=== PATIENT | male | born 1935 | race Caucasian/White ===

== ENCOUNTER 2023-11-08 11:35 | Emergency (ER) | payer OTHER ==
[~2023-11-08] VITALS: Ht 172.7 cm; Wt 76.3 kg
[2023-11-08] MEDS ORDERED: SODIUM CHLORIDE 0.9% 1,000 ML IV ONE (11:45)
[2023-11-08] MEDS ORDERED: FLEET MINERAL OIL ENEMA 133 ML PR ONE (11:45)
[2023-11-08 12:02] LABS: Basophils # (auto) 0 10 ^3/uL (0-0.2); Eosinophils # (auto) 0.1 10 ^3/uL (0-0.8); Hemoglobin 12.9 g/dL (13.5-17.5); Lymphocytes # (auto) 0.3 10 ^3/uL (0.4-5.4); Lymphocytes % (auto) 6.4 % (10.0-50.0); Monocytes # (auto) 0.4 10 ^3/uL (0-1.3); Red Cell Distribution Width 14.2 % (11.8-14.3); White Blood Cell 4.4 10^3/uL (4.4-10.8)
[2023-11-08 12:05] LABS: Basophils % (auto) 0.3 % (0.0-2.0); Eosinophils % (auto) 1.3 % (0.0-7.0); Hematocrit 37.6 % (41.0-53.0); Mean Corpuscular Hemoglobin 34.8 pg (28.0-32.0); Mean Corpuscular Hgb Conc. 34.3 g/dL (32.0-36.0); Mean Corpuscular Volume 101.6 fL (80.0-100.0); Monocytes % (auto) 8.5 % (0.0-12.0); Neutrophils # (auto) 3.7 10 ^3/uL (1.6-8.6); Neutrophils % (auto) 83.5 % (37.0-80.0); Red Blood Cells 3.71 10^6/uL (4.5-5.90)
[2023-11-08 12:19] LABS: Alanine Aminotransferase 26 U/L (7-40); Albumin 4.5 g/dL (3.2-4.8); Alkaline Phosphatase 51 U/L (46-116); Anion Gap 5 (5-15); Aspartate Aminotransferase 34 U/L (13-40); BUN/Creatinine Ratio 14.3 (10.0-20.0); Bilirubin, Total 0.8 mg/dL (0.2-1.0); Blood Urea Nitrogen 18 mg/dL (9-23); Calcium 10.3 mg/dL (8.7-10.4); Carbon Dioxide 25 mmol/L (20-30); Chloride 101 mmol/L (98-107); Glucose 111 mg/dL (74-106); Potassium 4.2 mmol/L (3.5-5.1); Sodium 131 mmol/L (136-145); Total Protein 8.1 g/dL (5.7-8.2)
[2023-11-08] MEDS ORDERED: LACT10SO3 PO (15:43)
[2023-11-08 18:25] VITALS: PULSE 80; RESP 18; TEMP 98.1; O2SAT 100
[2023-11-08 18:39] VITALS: BP 183/136; PULSE 100; RESP 18; O2SAT 100
== END 2023-11-08 18:40 | disposition admitted as inpatient to this hospital (09) ==
LOC: ER 11:35 → EDBD 11:35 → ER 18:40
DX: K59.00 Constipation, unspecified (principal); I10 Essential (primary) hypertension; M19.90 Unspecified osteoarthritis, unspecified site; Z98.890 Other specified postprocedural states; Z79.899 Other long term (current) drug therapy
CPT/HCPCS: 36415; 74176; 80053; 85025

== ENCOUNTER 2024-08-16 17:44 | Inpatient (IN) | payer OTHER ==
[~2024-08-16] VITALS: Ht 172.7 cm; Wt 67.5 kg
[~2024-08-16 17:44] MED LIST: LACT10SO3 PO
[2024-08-16 18:30] LABS: Basophils # (auto) 0 10 ^3/uL (0-0.2); Basophils % (auto) 0.1 % (0.0-2.0); Eosinophils # (auto) 0 10 ^3/uL (0-0.8); Hemoglobin 11.2 g/dL (13.5-17.5); Lymphocytes # (auto) 0.5 10 ^3/uL (0.4-5.4)
[2024-08-16 18:31] LABS: Eosinophils % (auto) 0.2 % (0.0-7.0); Hematocrit 31.2 % (41.0-53.0); Lymphocytes % (auto) 6.3 % (10.0-50.0); Mean Corpuscular Hemoglobin 35.9 pg (28.0-32.0); Mean Corpuscular Hgb Conc. 35.9 g/dL (32.0-36.0); Mean Corpuscular Volume 100.1 fL (80.0-100.0); Monocytes # (auto) 0.8 10 ^3/uL (0-1.3); Monocytes % (auto) 9.9 % (0.0-12.0); Neutrophils # (auto) 6.4 10 ^3/uL (1.6-8.6); Neutrophils % (auto) 83.5 % (37.0-80.0); Platelet Count (auto) 208 10^3/uL (140-450); Red Blood Cells 3.11 10^6/uL (4.5-5.90); Red Cell Distribution Width 15.3 % (11.8-14.3); White Blood Cell 7.7 10^3/uL (4.4-10.8)
[2024-08-16 19:02] LABS: INR 0.96 (0.9-1.15); Partial Thromboplastin Time 21.7 SEC (24.5-34.5); Prothrombin Time 10.2 sec (9.3-11.8)
--- NOTE | 2024-08-16 19:05 | DVH ---
CHEST RADIOGRAPH Indication:GEN WEAKNESS Technique: Single frontal view of the chest was obtained Comparison: None FINDINGS: Lines and Tubes: Sided cardiac device with intact leads Lungs: No focal consolidation. Pleura: No effusion. No pneumothorax. Cardiomediastinal contours: Mild cardiomegaly. Bones: No acute osseous abnormality. IMPRESSION: No acute cardiopulmonary disease.
[2024-08-16 19:06] LABS: Alanine Aminotransferase 17 U/L (7-40); Albumin 4.2 g/dL (3.2-4.8); Alkaline Phosphatase 84 U/L (46-116); Anion Gap 10 (5-15); Aspartate Aminotransferase 36 U/L (13-40); BUN/Creatinine Ratio 16.5 (10.0-20.0); Blood Urea Nitrogen 33 mg/dL (9-23); Carbon Dioxide 27 mmol/L (20-31); Chloride 93 mmol/L (98-107); Glucose 102 mg/dL (74-106); Magnesium 2.5 mg/dL (1.6-2.6); Potassium 2.6 mmol/L (3.5-5.1); Sodium 130 mmol/L (136-145)
[2024-08-16 19:07] LABS: Bilirubin, Total 0.8 mg/dL (0.2-1.0); Total Protein 8.7 g/dL (5.7-8.2)
[2024-08-16 19:16] LABS: Calcium 17.2 mg/dL (8.7-10.4)
--- NOTE | 2024-08-16 19:24 | ED.PDOC ---
History of Present Illness HPI Comments 88 y/o M, with a Hx of arthritis, CABG, HTN, Pacemaker, and thyroid disease, is BIBA for c/o generalized weakness, fatigue, poor appetite, and constipation for the past 2 months. Patient is a poor historian and reports on gradual onset of persisting symptoms for the past 2 months. Patient suspects on having a "blockage in [his] rectum" as the underlying cause of his symptoms. Patient states on losing approximately 11-13kg in weight since onset of symptoms. Patient states also on having a pacemaker placed in April 18 2024 in addition to consulting his PCP, currently, regarding for cholecystectomy s/p imaging studies showing "sludge" around his gallbladder. Patient endorses on no further relevant or pertinent past medical, surgical, or family Hx in addition to recent stress, injuries, sick contact, travel, spoiled food intake, or substance use/exposure. Patient denies having any headache, dizziness, lightheadedness, weakness, fever, chills, or other associated symptoms or modifiers at this time. Chief Complaint: General Weakness Time Seen by MD: 18:45 Primary Care Provider: UNKNOWN Reviewed Notes: Nurses Notes, Stockfeed Miller Notes, Medications, Allergies Allergies: Coded Allergies: NO KNOWN ALLERGIES (Unverified , 11/08/23) Home Meds Active Scripts Lactulose (Lactulose) 10 Gm/15 Ml Kati, 10 GM PO BID for 7 Days, #100 ML Prov:EKATERINA CLAIRE MD 11/08/23 Information Source: Patient, Emergency Med Personnel Mode of Arrival: EMS Severity: Moderate Timing: Months Duration: Since onset Prehospital treatment: 12 Lead EKG, Salt Manager Past Medical History PAST MEDICAL HISTORY: Arthritis, HTN, Thyroid Surgical History: CABG, Pacemaker Family History Family History: Reviewed,noncontributory to illness Social History Smoker: Non-Smoker Alcohol: Denies ETOH Use Drugs: Denies Drug Use Lives In: Home Constitutional: reports: fatigue; denies: chills, diaphoresis, fever, malaise, sweats, weakness, others EENTM: denies: blurred vision, double vision, ear bleeding, ear discharge, ear drainage, ear pain, ear ringing, eye pain, eye redness, hearing loss, mouth pain, mouth swelling, nasal discharge, nose bleeding, nose congestion, nose pain, photophobia, tearing, throat pain, throat swelling, voice changes, others Respiratory: denies: cough, hemoptysis, orthopnea, SOB at rest, shortness of breath, SOB with excertion, stridor, wheezing, others Cardiovascular: denies: chest pain, dizzy spells, diaphoresis, Dyspnea on exertion, edema, irregular heart beat, left arm pain, lightheadedness, palpitations, PND, syncope, others Gastrointestinal: reports: constipated, poor appetite; denies: abdomen dis tended, abdominal pain, blood streaked bowels, diarrhea, dysphagia, difficulty swallowing, hematemesis, melena, nausea, poor fluid intake, rectal bleeding, rectal pain, vomiting, others Genitourinary: denies: burning, dysuria, flank pain, frequency, hematuria, incontinence, penile discharge, penile sore, pain, testicle pain, testicle swelling, urgency, others Neurological: reports: weakness; denies: dizziness, fainting, headache, left sided numbness, left sided weakness, numbness, paresthesia, pre-existing deficit, right sided numbness, right sided weakness, seizure, speech problems, tingling, tremors, others Musculoskeletal: denies: back pain, gout, joint pain, joint swelling, muscle pain, muscle stiffness, neck pain, others Integumetry: denies: bruises, change in color, change in hair/nails, dryness, laceration, lesions, lumps, rash, wounds, others Allergic/Immunocompromised: denies: Difficulty Healing, Frequent Infections, Hives, Itching, others Hematologic/Lymphatic: denies: anemia, blood clots, easy bleeding, easy bruising, swollen glands, others Endocrine: denies: excessive hunger, excessive sweating, excessive thirst, excessive urination, flushing, intolerance to cold, intolerance to heat, unexplained weight gain, unexplained weight loss, others Psychiatric: denies: anxiety, bipolar disorder, depression, hopeless, panic disorder, schizophrenia, sleepless, suicidal, others All Other Systems: Reviewed and Negative Physical Exam General Appearance: Mild Distress, Normal, Other (nice and pleasant ) HEENT: Normal ENT Inspection, Pharynx Normal, TMs Normal Neck: Full Range of Motion, Non-Tender, Normal, Normal Inspection Respiratory: Chest Non-Tender, Lungs Clear, No Accessory Muscle Use, No Respira tory Distress, Normal Breath Sounds Cardiovascular: No Edema, No JVD, No Murmur, No Gallop, Normal Peripheral Pulses, Regular Rate/Rhythm Breast Exam: Deferred Gastrointestinal: No Organomegaly, Non Tender, No Pulsatile Mass, Normal Bowel Sounds, Soft Genitalia: Deferred Pelvic: Deferred Rectal: Deferred Extremities: No calf tenderness, Normal capillary refill, Normal inspection, Normal range of motion, Non-tender, No pedal edema Musculoskeletal : Apperance: Normal Neurologic: Alert, floral specialist II-XII nml as Tested, Motor Weakness, Normal Affect, Normal Mood, No Sensory Deficits, Other (no focal neurological deficts) Cerebellar Function: Normal Reflexes: Normal Skin: Dry, Normal Color, Warm Lymphatic: No Adenopathy Was a procedure done? Was a procedure done?: No EKG EKG : Pulse Rate (adult): 74 Cardiac Rhythm: Paced ST: Old, Inf Differential Dx Considerations may include: electrolyte imbalance, dehydration, malnutrition, viral syndrome, constipation, SBO X-Ray, Labs, Meds, VS Vital Signs Date Time Temp Pulse Resp B/P (MAP) Pulse Ox O2 Delivery O2 Flow Rate FiO2 08/16/24 19:55 74 08/16/24 19:48 78 12 162/85 (110) 98 08/16/24 19:27 74 08/16/24 17:48 98.7 94 16 174/86 (115) 98 Lab Test 08/16/24 21:22 08/16/24 21:04 08/16/24 20:44 08/16/24 18:58 Range/Units Troponin I High Sensitivity Pending 1082 *H 1254 *H </=54 ng/L Urine Color Pending Urine Clarity Pending Urine pH Pending Urine Specific [place] Pending Urine Protein Pending Urine Ketones Pending Urine Blood Pending Urine Nitrite Pending Urine Bilirubin Pending Urine Urobilinogen Pending Urine Leukocyte Esterase Pending Urine RBC Pending Urine WBC Pending Urine Squamous Epithelial Cells Pending Urine Bacteria Pending Urine Glucose Pending Test 08/16/24 18:08 Range/Units White Blood Count 7.7 4.4-10.8 10^3/uL Red Blood Count 3.11 L 4.5-5.90 10^6/uL Hemoglobin 11.2 L 13.5-17.5 g/dL Hematocrit 31.2 L 41.0-53.0 % Mean Corpuscular Volume 100.1 H 80.0-100.0 fL Mean Corpuscular Hemoglobin 35.9 H 28.0-32.0 pg Mean Corpuscular Hemoglobin Concent 35.9 32.0-36.0 g/dL Red Cell Distribution Width 15.3 H 11.8-14.3 % Platelet Count 208 140-450 10^3/uL Mean Platelet Volume 8.5 6.9-10.8 fL Neutrophils (%) (Auto) 83.5 H 37.0-80.0 % Lymphocytes (%) (Auto) 6.3 L 10.0-50.0 % Monocytes (%) (Auto) 9.9 0.0-12.0 % Eosinophils (%) (Auto) 0.2 0.0-7.0 % Basophils (%) (Auto) 0.1 0.0-2.0 % Neutrophils # (Auto) 6.4 1.6-8.6 10 ^3/uL Lymphocytes # (Auto) 0.5 0.4-5.4 10 ^3/uL Monocytes # (Auto) 0.8 0-1.3 10 ^3/uL Eosinophils # (Auto) 0 0-0.8 10 ^3/uL Basophils # (Auto) 0 0-0.2 10 ^3/uL Nucleated Red Blood Cells 0.0 % Prothrombin Time 10.2 9.3-11.8 sec Prothrombin Time INR 0.96 0.9-1.15 Activated Partial Thromboplast Time 21.7 L 24.5-34.5 SEC Sodium Level 130 L 136-145 mmol/L Potassium Level 2.6 L 3.5-5.1 mmol/L Chloride Level 93 L 98-107 mmol/L Carbon Dioxide Level 27 20-31 mmol/L Anion Gap 10 5-15 Blood Urea Nitrogen 33 H 9-23 mg/dL Creatinine 2.00 H 0.700-1.30 mg/dL Glomerular Filtration Rate Calc 32 >90 mL/min BUN/Creatinine Ratio 16.5 10.0-20.0 Serum Glucose 102 74-106 mg/dL Calcium Level 17.2 *H 8.7-10.4 mg/dL Magnesium Level 2.5 1.6-2.6 mg/dL Total Bilirubin 0.8 0.2-1.0 mg/dL Aspartate Amino Transferase (AST) 36 13-40 U/L Alanine Aminotransferase (ALT) 17 7-40 U/L Alkaline Phosphatase 84 46-116 U/L Troponin I High Sensitivity 1156 *H </=54 ng/L B-Type Natriuretic Peptide 441.10 0-100 pg/mL Total Protein 8.7 H 5.7-8.2 g/dL Albumin 4.2 3.2-4.8 g/dL Current Medications Medications (Trade) Dose Ordered Sig/Shai Route Start Time Stop Time Status Last Admin Heparin Sodium (Porcine) 4,000 units ONCE ONCE IV 08/16/24 20:00 08/16/24 20:01 DC 08/16/24 20:00 Heparin Sodium/ Dextrose 250 ml @ 9 mls/hr Q24H IV 08/16/24 20:00 08/16/24 20:00 First troponin is 11 156. EKG shows atrial sensed ventricular paced, pacemaker at a rate of 74 beats per minute with old inferior wall MS. Dr. Gonzalez was consulted he recommended aspirin and heparin for anticoagulants, and was see the patient 1st thing in the morning. Sodium 130 potassium 2.6. BUN 33 creatinine two. BNP is 441. The patient was admitted by Dr. Rendon for further evaluation and care. Time of 1ST Reevaluation: 19:15 Reevaluation 1ST: Unchanged Patient Education/Counseling: Diagnosis, Treatment Family Education/Counseling: No Family Present Departure 1 Departure Time of Disposition: 22:04 Impression: Primary Impression: Non-STEMI (non-ST elevated myocardial infarction) Additional Impressions: Electrolyte imbalance Hypokalemia Acute kidney injury Hypercalcemia Disposition: ADMITTED INPATIENT Admit to: Tele Condition: Critical Critical Care Note Critical Care Time?: Yes (55 min-critical care time only) Stability Stability form required: No Heart Score Heart Score: Heart Score Response (Comments) Value History Highly Suspicious 2 EKG N/A 0 Age >65 2 Risk Factors >3 or Hx ASHD 2 Troponin >3 x's Normal limit 2 Total 8 I personally scribed for SHAZIA CORDERO MD ([email or web address]) on 08/16/24 at 19:24. Electronically submitted by Iggy Sullivan [email or web address]). HSAZIA CORDERO MD Aug 16, 2024 19:24
[2024-08-16] MEDS: HEPARIN DRIP/D5W 100UNITS/ML 250 ML IV SCH (20:00)
[2024-08-16] MEDS: HEPARIN SODIUM (PORCINE) 5000 UNITS/ML 1ML VIAL IV ONE (20:00)
[2024-08-16 21:28] LABS: Urine Bacteria None Seen /hpf (None Seen)
[2024-08-16] MEDS: POTASSIUM CHL 20MEQ/100ML 100 ML IV SCH (21:45)
[2024-08-16] MEDS: POTASSIUM EFFERVESENT TAB 25 MEQ PO ONE (21:45)
[2024-08-16] MEDS: SODIUM CHLORIDE 0.9% 1,000 ML IV ONE ×2 (21:45→22:45)
[2024-08-16 21:53] LABS: Urine Blood Negative /uL (Negative); Urine Clarity Clear (Clear); Urine Color Yellow (Yellow); Urine Mucus FEW (None Seen); Urine Protein, UAD TRACE (Negative); Urine Specific Gravity 1.008 (1.001-1.035); Urine Urobilinogen Normal (Negative); Urine WBC 1 /hpf (0 - 3); Urine pH 6.5 (5.0-9.0)
[2024-08-16] MEDS ORDERED: MORPHINE SULFATE INJ 2 MG/ml SYRG IV PRN (22:00)
[2024-08-16] MEDS ORDERED: NITROGLYCERIN 0.4 MG SL TAB SL PRN (22:00)
[2024-08-16] MEDS: LACTULOSE 20Gm/30ML SOLN PO ONE (22:00)
[2024-08-17] VITALS (10 sets, daily range): BP systolic 138–180; BP diastolic 69–100; PULSE 60–89; RESP 16–19; TEMP 97.3–98.1; O2SAT 92–98
[2024-08-17] MEDS ORDERED: HYDR12.59 PO (01:52)
[2024-08-17] MEDS ORDERED: LEVO100T8 PO (01:52)
[2024-08-17] MEDS ORDERED: AMLO1TAB22 PO (01:52)
[2024-08-17] MEDS: amLODIPine BESYLATE 5 MG TAB PO ONE (02:58)
[2024-08-17 03:19] LABS: INR 1.03 (0.9-1.15); Prothrombin Time 10.9 sec (9.3-11.8)
[2024-08-17 03:22] LABS: Partial Thromboplastin Time 91.8 SEC (24.5-34.5)
[2024-08-17] MEDS: HEPARIN DRIP/D5W 100UNITS/ML 250 ML IV SCH ×2 (04:36→10:30)
[2024-08-17] MEDS: cloNIDine HCL 0.1 MG TAB PO ONE (05:17)
[2024-08-17 06:53] LABS: Basophils # (auto) 0 10 ^3/uL (0-0.2); Eosinophils # (auto) 0 10 ^3/uL (0-0.8); Eosinophils % (auto) 0.2 % (0.0-7.0); Hemoglobin 9.7 g/dL (13.5-17.5); Lymphocytes # (auto) 0.3 10 ^3/uL (0.4-5.4); Neutrophils # (auto) 4.8 10 ^3/uL (1.6-8.6); White Blood Cell 5.7 10^3/uL (4.4-10.8)
[2024-08-17 06:56] LABS: Basophils % (auto) 0.1 % (0.0-2.0); Hematocrit 27.9 % (41.0-53.0); Lymphocytes % (auto) 5.2 % (10.0-50.0); Mean Corpuscular Hemoglobin 35.1 pg (28.0-32.0); Mean Corpuscular Hgb Conc. 34.9 g/dL (32.0-36.0); Mean Corpuscular Volume 100.5 fL (80.0-100.0); Monocytes # (auto) 0.5 10 ^3/uL (0-1.3); Monocytes % (auto) 9.6 % (0.0-12.0); Neutrophils % (auto) 84.9 % (37.0-80.0); Platelet Count (auto) 190 10^3/uL (140-450); Red Blood Cells 2.77 10^6/uL (4.5-5.90); Red Cell Distribution Width 15.3 % (11.8-14.3)
[2024-08-17 07:24] LABS: Alanine Aminotransferase 15 U/L (7-40); Alkaline Phosphatase 67 U/L (46-116); Anion Gap 7 (5-15); BUN/Creatinine Ratio 19.2 (10.0-20.0); Blood Urea Nitrogen 32 mg/dL (9-23); Carbon Dioxide 28 mmol/L (20-31); Chloride 100 mmol/L (98-107); Glucose 95 mg/dL (74-106); Potassium 3.1 mmol/L (3.5-5.1)
[2024-08-17 07:25] LABS: Albumin 3.3 g/dL (3.2-4.8); Aspartate Aminotransferase 29 U/L (13-40)
[2024-08-17 07:26] LABS: Bilirubin, Total 0.6 mg/dL (0.2-1.0)
[2024-08-17 07:39] LABS: Sodium 135 mmol/L (136-145)
[2024-08-17 07:41] LABS: Calcium 14.2 mg/dL (8.7-10.4)
--- NOTE | 2024-08-17 08:48 | DVHHP2 ---
Admitting Diagnosis: NSTEMI, ROYAL History of Present Illness HPI 88 y.o. male with CAD, s/p CABG, CHF, pacemaker (04/2024) was brought to the ED c/o generalized weakness, loss of appetite, weight loss for the past 2 months. Patient also c/o constipation, thinking that it was the cause of his other symptoms. Patient denied CP, SOB, palpitations. Home Meds Active Scripts Lactulose (Lactulose) 10 Gm/15 Ml Kati, 10 GM PO BID for 7 Days, #100 ML Prov:EKATERINA CLAIRE MD 11/08/23 Reported Medications Levothyroxine Sodium (Levothyroxine Sodium) 100 Mcg Tab, 1 TAB PO DAILY 08/17/24 Hydrochlorothiazide (Hydrochlorothiazide) 12.5 Mg Cap, 12.5 MG PO DAILY for 30 Days, MG 08/17/24 Amlodipine Besylate (Amlodipine Besylate) 5 Mg Tab, 20 MG PO DAILY for 30 Days, MG 08/17/24 Past Medical History Cardiac: CAD, CHF, HTN, [place], Hyperlipidemia Endocrine: Hypothyroidism Review of Systems Constitutional: Malaise, Weakness, Weight loss H&P Exam Vital Signs Vital Signs Date Time Temp Pulse Resp B/P (MAP) Pulse Ox O2 Delivery O2 Flow Rate FiO2 08/17/24 05:17 170/87 08/17/24 05:00 97.9 88 18 93 97.9 08/17/24 03:31 Room Air* 0 21 General Appeara: Mild distress Head Exam: Normal inspection Neck Exam: Normal inspection Eye Exam: bilateral eye PERRL, bilateral eye EOMI Pulmonary/Respiratory: Crackles Cardiovascular/Chest: Tachycardia Abdominal Pain Onset Location: Generalized abdomen Neuro/Mental St: Alert, Oriented Labs/Xrays Labs Test 08/17/24 05:48 08/17/24 01:54 08/16/24 21:22 08/16/24 21:04 Range/Units White Blood Count 5.7 # 4.4-10.8 10^3/uL Red Blood Count 2.77 L 4.5-5.90 10^6/uL Hemoglobin 9.7 L 13.5-17.5 g/dL Hematocrit 27.9 #L 41.0-53.0 % Mean Corpuscular Volume 100.5 H 80.0-100.0 fL Mean Corpuscular Hemoglobin 35.1 H 28.0-32.0 pg Mean Corpuscular Hemoglobin Concent 34.9 32.0-36.0 g/dL Red Cell Distribution Width 15.3 H 11.8-14.3 % Platelet Count 190 140-450 10^3/uL Mean Platelet Volume 8.3 6.9-10.8 fL Neutrophils (%) (Auto) 84.9 H 37.0-80.0 % Lymphocytes (%) (Auto) 5.2 L 10.0-50.0 % Monocytes (%) (Auto) 9.6 0.0-12.0 % Eosinophils (%) (Auto) 0.2 0.0-7.0 % Basophils (%) (Auto) 0.1 0.0-2.0 % Neutrophils # (Auto) 4.8 1.6-8.6 10 ^3/uL Lymphocytes # (Auto) 0.3 L 0.4-5.4 10 ^3/uL Monocytes # (Auto) 0.5 0-1.3 10 ^3/uL Eosinophils # (Auto) 0 0-0.8 10 ^3/uL Basophils # (Auto) 0 0-0.2 10 ^3/uL Nucleated Red Blood Cells 0.0 % Sodium Level 135 #L 136-145 mmol/L Potassium Level 3.1 L 3.5-5.1 mmol/L Chloride Level 100 98-107 mmol/L Carbon Dioxide Level 28 20-31 mmol/L Anion Gap 7 5-15 Blood Urea Nitrogen 32 H 9-23 mg/dL Creatinine 1.67 H 0.700-1.30 mg/dL Glomerular Filtration Rate Calc 39 >90 mL/min BUN/Creatinine Ratio 19.2 10.0-20.0 Serum Glucose 95 74-106 mg/dL Calcium Level 14.2 *H 8.7-10.4 mg/dL Total Bilirubin 0.6 0.2-1.0 mg/dL Aspartate Amino Transferase (AST) 29 13-40 U/L Alanine Aminotransferase (ALT) 15 7-40 U/L Alkaline Phosphatase 67 46-116 U/L Total Protein 7.0 5.7-8.2 g/dL Albumin 3.3 3.2-4.8 g/dL Prothrombin Time 10.9 9.3-11.8 sec Prothrombin Time INR 1.03 0.9-1.15 Activated Partial Thromboplast Time 91.8 *H 24.5-34.5 SEC Troponin I High Sensitivity 997 *H </=54 ng/L Urine Color Yellow Yellow Urine Clarity Clear Clear Urine pH 6.5 5.0-9.0 Urine Specific [place] 1.008 1.001-1.035 Urine Protein Trace H Negative Urine Ketones Negative Negative Urine Blood Negative Negative /uL Urine Nitrite Negative Negative Urine Bilirubin Negative Negative Urine Urobilinogen Normal Negative mg/dL Urine Leukocyte Esterase Negative Negative /uL Urine RBC 1 0 - 3 /hpf Urine WBC 1 0 - 3 /hpf Urine Squamous Epithelial Cells Few <5 /hpf Urine Bacteria None seen None Seen /hpf Urine Mucus Few None Seen Urine Glucose Normal Normal mg/dL Test 08/16/24 18:08 Range/Units Magnesium Level 2.5 1.6-2.6 mg/dL B-Type Natriuretic Peptide 441.10 0-100 pg/mL Assessment/Plan Problem List: (1) Non-STEMI (non-ST elevated myocardial infarction) (2) Acute kidney injury (3) Hypercalcemia (4) Constipation Plan Heparin drip, ECHO, Cardiology consult, nephrology consult, IVF Plan discussed with: Patient NIECY LOWE MD Aug 17, 2024 08:48
[2024-08-17] MEDS ORDERED: POLYETHYLENE GLYCOL 17 GM PWDR PO PRN (10:00)
[2024-08-17 10:10] LABS: INR 1.03 (0.9-1.15); Partial Thromboplastin Time 41.2 SEC (24.5-34.5); Prothrombin Time 10.9 sec (9.3-11.8)
--- NOTE | 2024-08-17 10:56 | DVH ---
Exam: CT CHST AB PEL WO CON-NO IV/ORAL History: R/O MALIGNANCY DT HIGH CALCIUM Comparison Study: None available at time of dictation. Technique: Multidetector spiral CT of the chest, abdomen and pelvis was performed from lower neck to pubic symphysis Axial, coronal and sagittal multiplanar reformats were performed by the technologist on a separate workstation. Radiation Dose : 1. Chest/Abdomen/Pelvis: CTDIvol 10.69 mGy, DLP 748.88 mGy*cm. Findings: Lower neck: Normal thyroid. Lungs: No focal consolidation, pleural effusion or pneumothorax. Atelactasis and scarring in the lung bases. Heart/Vascular Structures: Normal heart size. No pericardial effusion. Ascending aortic aneurysm immanuel uring up to 45 mm. Lymph Nodes: No adenopathy Pleura: No pleural effusion or significant pneumothorax. Liver: The liver is normal in size. No focal lesions. Normal hepatic vascular enhancement. Gallbladder and Biliary Tree: Gallbladder is dilated. Spleen: Unremarkable Pancreas: There is question of a mass in the tail of the pancreas. Adrenal Glands: Unremarkable Kidneys: Kidneys demonstrate normal symmetric enhancement without focal lesions, calculi or hydroneph rosis. Bladder: Unremarkable Bowel: The stomach is grossly normal in appearance. Small bowel and colon are normal in caliber and d istribution. There is wall thickening of the rectum with perirectal stranding. The appendix is not vi sualized; however, no secondary findings of acute appendicitis identified. Ascites: Trace perisplenic ascites. Lymphadenopathy: No mesenteric, retroperitoneal or periportal lymphadenopathy. Abdominal Wall and Mesentery: Unremarkable. Vasculature: The visualized abdominal aorta is normal in size and caliber. There is calcified atheros clerotic plaque involving the aorta and its branches. Abdominal and pelvic vessels demonstrate normal enhancement. Pelvic Organs: Prostate is enlarged. Musculoskeletal: Compression deformity of multiple thoracic and lumbar vertebral bodies. IMPRESSION: 1. Limited noncontrast exam. 2. Ascending aortic aneurysm measuring up to 45 mm. 3. Gallbladder hydrops. 4. Questionable mass in the tail of the pancreas. Recommend further evaluation with CT or MRI of the abdomen with contrast. 5. Wall thickening of the rectum with perirectal stranding. Finding could be infectious / inflammato ry or neoplastic. Recommend clinical correlation. Consider further evaluation with colonoscopy. 6. Compression deformity of multiple thoracic and lumbar vertebral bodies. Consider further evaluatio n with MRI of the thoracic and lumbar spine. HS:Y
--- NOTE | 2024-08-17 11:25 | DVHINCON2 ---
Date of service: Aug 17, [address] Rendon Reason for Consultation Acute kidney injury History of Present Illness Patient is a 88 male with past medical history significant for Arthritis, HTN, coronary artery disease and hypothyroidism is admitted for generalized weakness poor appetite and constipation for two months. On admission patient found to have elevated BUN creatinine nephrology is consulted for acute kidney injury Past Medical History PAST MEDICAL HISTORY: Arthritis, HTN, hypothyroidism, coronary artery disease Past Surgical History Patient denies Allergies: Coded Allergies: NO KNOWN ALLERGIES (Unverified , 11/08/23) Home Meds Active Scripts Lactulose (Lactulose) 10 Gm/15 Ml Kati, 10 GM PO BID for 7 Days, #100 ML Prov:EKATERINA CLAIRE MD 11/08/23 Reported Medications Levothyroxine Sodium (Levothyroxine Sodium) 100 Mcg Tab, 1 TAB PO DAILY 08/17/24 Hydrochlorothiazide (Hydrochlorothiazide) 12.5 Mg Cap, 12.5 MG PO DAILY for 30 Days, MG 08/17/24 Amlodipine Besylate (Amlodipine Besylate) 5 Mg Tab, 20 MG PO DAILY for 30 Days, MG 08/17/24 Current Medications Current Medications Medications (Trade) Dose Ordered Sig/Shai Route PRN Reason Start Time Stop Time Status Last Admin Heparin Sodium/ Dextrose 250 ml @ 9 mls/hr Q24H IV 08/16/24 20:00 08/17/24 03:53 DC 08/16/24 20:00 Potassium Chloride 100 ml @ 50 mls/hr Q2H IV 08/16/24 21:45 08/17/24 01:44 DC 08/17/24 02:07 Nitroglycerin (Ntrostat Sublingual) 0.4 mg Q5MINP PRN SL FOR CHEST PAIN 08/16/24 22:00 Morphine Sulfate 2 mg Q30M PRN IV FOR CHEST PAIN 08/16/24 22:00 Amlodipine Besylate (Norvasc Tablet) 5 mg DAILY PO 08/18/24 10:00 Heparin Sodium/ Dextrose 250 ml @ 6 mls/hr Q24H IV 08/17/24 04:30 08/17/24 10:19 DC 08/17/24 04:36 Lactulose 30 ml DAILY PO 08/17/24 10:00 08/17/24 12:24 Polyethylene Glycol (Miralax 17GM Powder) 17 gm DAILYPRN PRN PO FOR CONSTIPATION 08/17/24 10:00 Heparin Sodium/ Dextrose 250 ml @ 8 mls/hr Q24H IV 08/17/24 10:30 08/17/24 10:30 Potassium Bicarbonate (Klor-Con/Ef) 50 meq DAILY PO 08/17/24 11:15 08/17/24 12:23 Ceftriaxone Sodium 50 ml @ 100 mls/hr DAILY@09 IV 08/18/24 09:00 UNV Metronidazole 100 ml @ 100 mls/hr Q8HR IV 08/17/24 14:00 UNV Review of Systems All 12 item review of systems reviewed with the patient nonsignificant except what is mentioned in the history of present illness H&P Exam Vital Signs/I&O Vital Sign Date Time Temp Pulse Resp B/P (MAP) Pulse Ox O2 Delivery O2 Flow Rate FiO2 08/17/24 13:00 98.1 66 16 153/78 (103) 96 98.1 08/17/24 08:00 Room Air* 0 21 Intake and Output 08/16/24 08/17/24 19:00 07:00 Intake Total 0 ml Output Total 775 ml Balance -775 ml Intake Oral 0 ml Output Urine Total 775 ml Physical Exam Patient lying comfortably in bed awake and alert, and son at the bedside Lungs clear to auscultation bilaterally Cardiac exam regular rate and rhythm GI soft nontender normal Extremity no clubbing cyanosis or edema Neuro nonfocal Labs/Diagnostic Data Labs/Diagnostic Data Laboratory Tests Test 08/17/24 11:44 08/17/24 09:44 08/17/24 05:48 08/17/24 04:58 Range/Units Troponin I High Sensitivity 670 *H 721 *H 775 *H </=54 ng/L Prothrombin Time 10.9 9.3-11.8 sec Prothrombin Time INR 1.03 0.9-1.15 Activated Partial Thromboplast Time 41.2 H 24.5-34.5 SEC White Blood Count 5.7 # 4.4-10.8 10^3/uL Red Blood Count 2.77 L 4.5-5.90 10^6/uL Hemoglobin 9.7 L 13.5-17.5 g/dL Hematocrit 27.9 #L 41.0-53.0 % Mean Corpuscular Volume 100.5 H 80.0-100.0 fL Mean Corpuscular Hemoglobin 35.1 H 28.0-32.0 pg Mean Corpuscular Hemoglobin Concent 34.9 32.0-36.0 g/dL Red Cell Distribution Width 15.3 H 11.8-14.3 % Platelet Count 190 140-450 10^3/uL Mean Platelet Volume 8.3 6.9-10.8 fL Neutrophils (%) (Auto) 84.9 H 37.0-80.0 % Lymphocytes (%) (Auto) 5.2 L 10.0-50.0 % Monocytes (%) (Auto) 9.6 0.0-12.0 % Eosinophils (%) (Auto) 0.2 0.0-7.0 % Basophils (%) (Auto) 0.1 0.0-2.0 % Neutrophils # (Auto) 4.8 1.6-8.6 10 ^3/uL Lymphocytes # (Auto) 0.3 L 0.4-5.4 10 ^3/uL Monocytes # (Auto) 0.5 0-1.3 10 ^3/uL Eosinophils # (Auto) 0 0-0.8 10 ^3/uL Basophils # (Auto) 0 0-0.2 10 ^3/uL Nucleated Red Blood Cells 0.0 % Sodium Level 135 #L 136-145 mmol/L Potassium Level 3.1 L 3.5-5.1 mmol/L Chloride Level 100 98-107 mmol/L Carbon Dioxide Level 28 20-31 mmol/L Anion Gap 7 5-15 Blood Urea Nitrogen 32 H 9-23 mg/dL Creatinine 1.67 H 0.700-1.30 mg/dL Glomerular Filtration Rate Calc 39 >90 mL/min BUN/Creatinine Ratio 19.2 10.0-20.0 Serum Glucose 95 74-106 mg/dL Calcium Level 14.2 *H 8.7-10.4 mg/dL Total Bilirubin 0.6 0.2-1.0 mg/dL Aspartate Amino Transferase (AST) 29 13-40 U/L Alanine Aminotransferase (ALT) 15 7-40 U/L Alkaline Phosphatase 67 46-116 U/L Total Protein 7.0 5.7-8.2 g/dL Albumin 3.3 3.2-4.8 g/dL Vitamin D 25-Hydroxy 76.7 30.0-100 ng/mL Thyroid Stimulating Hormone (TSH) 0.32 L 0.55-4.78 uIU/mL Parathyroid Hormone (Intact) 36.5 18.4-80.1 pg/mL Hepatitis B Surface Antigen Negative Negative Hepatitis C Antibody Negative Negative Magnesium Level 2.2 1.6-2.6 mg/dL Test 08/17/24 01:54 08/16/24 21:22 08/16/24 21:04 08/16/24 20:44 Range/Units Prothrombin Time 10.9 9.3-11.8 sec Prothrombin Time INR 1.03 0.9-1.15 Activated Partial Thromboplast Time 91.8 *H 24.5-34.5 SEC Troponin I High Sensitivity 997 *H 1082 *H </=54 ng/L Urine Color Yellow Yellow Urine Clarity Clear Clear Urine pH 6.5 5.0-9.0 Urine Specific [place] 1.008 1.001-1.035 Urine Protein Trace H Negative Urine Ketones Negative Negative Urine Blood Negative Negative /uL Urine Nitrite Negative Negative Urine Bilirubin Negative Negative Urine Urobilinogen Normal Negative mg/dL Urine Leukocyte Esterase Negative Negative /uL Urine RBC 1 0 - 3 /hpf Urine WBC 1 0 - 3 /hpf Urine Squamous Epithelial Cells Few <5 /hpf Urine Bacteria None seen None Seen /hpf Urine Mucus Few None Seen Urine Glucose Normal Normal mg/dL Test 08/16/24 18:58 08/16/24 18:08 Range/Units Troponin I High Sensitivity 1254 *H 1156 *H </=54 ng/L White Blood Count 7.7 4.4-10.8 10^3/uL Red Blood Count 3.11 L 4.5-5.90 10^6/uL Hemoglobin 11.2 L 13.5-17.5 g/dL Hematocrit 31.2 L 41.0-53.0 % Mean Corpuscular Volume 100.1 H 80.0-100.0 fL Mean Corpuscular Hemoglobin 35.9 H 28.0-32.0 pg Mean Corpuscular Hemoglobin Concent 35.9 32.0-36.0 g/dL Red Cell Distribution Width 15.3 H 11.8-14.3 % Platelet Count 208 140-450 10^3/uL Mean Platelet Volume 8.5 6.9-10.8 fL Neutrophils (%) (Auto) 83.5 H 37.0-80.0 % Lymphocytes (%) (Auto) 6.3 L 10.0-50.0 % Monocytes (%) (Auto) 9.9 0.0-12.0 % Eosinophils (%) (Auto) 0.2 0.0-7.0 % Basophils (%) (Auto) 0.1 0.0-2.0 % Neutrophils # (Auto) 6.4 1.6-8.6 10 ^3/uL Lymphocytes # (Auto) 0.5 0.4-5.4 10 ^3/uL Monocytes # (Auto) 0.8 0-1.3 10 ^3/uL Eosinophils # (Auto) 0 0-0.8 10 ^3/uL Basophils # (Auto) 0 0-0.2 10 ^3/uL Nucleated Red Blood Cells 0.0 % Prothrombin Time 10.2 9.3-11.8 sec Prothrombin Time INR 0.96 0.9-1.15 Activated Partial Thromboplast Time 21.7 L 24.5-34.5 SEC Sodium Level 130 L 136-145 mmol/L Potassium Level 2.6 L 3.5-5.1 mmol/L Chloride Level 93 L 98-107 mmol/L Carbon Dioxide Level 27 20-31 mmol/L Anion Gap 10 5-15 Blood Urea Nitrogen 33 H 9-23 mg/dL Creatinine 2.00 H 0.700-1.30 mg/dL Glomerular Filtration Rate Calc 32 >90 mL/min BUN/Creatinine Ratio 16.5 10.0-20.0 Serum Glucose 102 74-106 mg/dL Calcium Level 17.2 *H 8.7-10.4 mg/dL Magnesium Level 2.5 1.6-2.6 mg/dL Total Bilirubin 0.8 0.2-1.0 mg/dL Aspartate Amino Transferase (AST) 36 13-40 U/L Alanine Aminotransferase (ALT) 17 7-40 U/L Alkaline Phosphatase 84 46-116 U/L B-Type Natriuretic Peptide 441.10 0-100 pg/mL Total Protein 8.7 H 5.7-8.2 g/dL Albumin 4.2 3.2-4.8 g/dL Assessment Acute kidney injury superimposed Chronic Kidney Disease secondary hemodynamic mediated NSTEMI Dehydration Hypercalcemia rule out malignancy Hypokalemia due to potassium depletion Hyponatremia due to dehydration Anemia of chronic kidney disease Recommendations Closely monitor fluid and electrolytes Avoid nephrotoxic medications Muse catheter Strict I&Os I agree with IV fluid hydration KCL replacement cardiology consult GI consult Check 25 hydroxyvitamin D, phosphorus and PTH Check kidney ultrasound We will continue to follow Patient seen and examined by myself. I discussed my plan of care with the patient, his , son and the primary nurse at the bedside I would like to thank Dr. Rendon for the consult, will follow up Plan discussed with: Patient RY MENDOZA MD Aug 17, 2024 11:25
[2024-08-17] MEDS: POTASSIUM EFFERVESENT TAB 25 MEQ PO SCH (12:23)
[2024-08-17] MEDS: LACTULOSE 20Gm/30ML SOLN PO SCH (12:24)
[2024-08-17 13:06] LABS: Hepatitis B Surface Antigen Negative (Negative)
[2024-08-17 13:27] LABS: Hepatitis C Antibody Negative (Negative)
--- NOTE | 2024-08-17 13:40 | DVHINCON2 ---
GI Consult Consult Note GI consult note Date of Consultation: 08/17/2024 Chief Complaint: Masslike sensation in rectum, , high calcium rule out malignancy Referring Physician: H&P: 88-year-old male admitted with generalized weakness, fatigue, poor appetite and constipation, for last two months Patient has 30 lb weight loss, in this period of time No abdominal pain. No nausea or vomit. No hematemesis. No melena or red blood in stool Patient is complaining of rectal pain. No history of hemorrhoids No colonoscopy in past Past Medical History: Arthritis, HTN, Thyroid Past Surgical History: CABG, Pacemaker Social History: NO smoking, drinking ETOH and use of illegal drugs. Family History: Noncontributory Review of Systems: Constitutional: + weight loss HEENT: no eye pain, no hearing loss, no oral lesion, no scleral icterus Heart: no chest pain, no chest pressure Lung: no cough, no dyspnea with exertion Abdomen: see HPI Physical exam: General: NAD, AAOX3 Chest: lung [place] clear to auscultation Heart: RRR, no murmur Abdomen: non-distended, no tenderness to palpation, +BS Labs: Labs Test 08/17/24 11:44 08/17/24 09:44 08/17/24 05:48 08/17/24 04:58 Range/Units Troponin I High Sensitivity 670 *H </=54 ng/L Prothrombin Time 10.9 9.3-11.8 sec Prothrombin Time INR 1.03 0.9-1.15 Activated Partial Thromboplast Time 41.2 H 24.5-34.5 SEC White Blood Count 5.7 # 4.4-10.8 10^3/uL Red Blood Count 2.77 L 4.5-5.90 10^6/uL Hemoglobin 9.7 L 13.5-17.5 g/dL Hematocrit 27.9 #L 41.0-53.0 % Mean Corpuscular Volume 100.5 H 80.0-100.0 fL Mean Corpuscular Hemoglobin 35.1 H 28.0-32.0 pg Mean Corpuscular Hemoglobin Concent 34.9 32.0-36.0 g/dL Red Cell Distribution Width 15.3 H 11.8-14.3 % Platelet Count 190 140-450 10^3/uL Mean Platelet Volume 8.3 6.9-10.8 fL Neutrophils (%) (Auto) 84.9 H 37.0-80.0 % Lymphocytes (%) (Auto) 5.2 L 10.0-50.0 % Monocytes (%) (Auto) 9.6 0.0-12.0 % Eosinophils (%) (Auto) 0.2 0.0-7.0 % Basophils (%) (Auto) 0.1 0.0-2.0 % Neutrophils # (Auto) 4.8 1.6-8.6 10 ^3/uL Lymphocytes # (Auto) 0.3 L 0.4-5.4 10 ^3/uL Monocytes # (Auto) 0.5 0-1.3 10 ^3/uL Eosinophils # (Auto) 0 0-0.8 10 ^3/uL Basophils # (Auto) 0 0-0.2 10 ^3/uL Nucleated Red Blood Cells 0.0 % Sodium Level 135 #L 136-145 mmol/L Potassium Level 3.1 L 3.5-5.1 mmol/L Chloride Level 100 98-107 mmol/L Carbon Dioxide Level 28 20-31 mmol/L Anion Gap 7 5-15 Blood Urea Nitrogen 32 H 9-23 mg/dL Creatinine 1.67 H 0.700-1.30 mg/dL Glomerular Filtration Rate Calc 39 >90 mL/min BUN/Creatinine Ratio 19.2 10.0-20.0 Serum Glucose 95 74-106 mg/dL Calcium Level 14.2 *H 8.7-10.4 mg/dL Total Bilirubin 0.6 0.2-1.0 mg/dL Aspartate Amino Transferase (AST) 29 13-40 U/L Alanine Aminotransferase (ALT) 15 7-40 U/L Alkaline Phosphatase 67 46-116 U/L Total Protein 7.0 5.7-8.2 g/dL Albumin 3.3 3.2-4.8 g/dL Vitamin D 25-Hydroxy 76.7 30.0-100 ng/mL Thyroid Stimulating Hormone (TSH) 0.32 L 0.55-4.78 uIU/mL Parathyroid Hormone (Intact) 36.5 18.4-80.1 pg/mL Hepatitis B Surface Antigen Negative Negative Magnesium Level 2.2 1.6-2.6 mg/dL Test 08/16/24 21:04 08/16/24 18:08 Range/Units Urine Color Yellow Yellow Urine Clarity Clear Clear Urine pH 6.5 5.0-9.0 Urine Specific [place] 1.008 1.001-1.035 Urine Protein Trace H Negative Urine Ketones Negative Negative Urine Blood Negative Negative /uL Urine Nitrite Negative Negative Urine Bilirubin Negative Negative Urine Urobilinogen Normal Negative mg/dL Urine Leukocyte Esterase Negative Negative /uL Urine RBC 1 0 - 3 /hpf Urine WBC 1 0 - 3 /hpf Urine Squamous Epithelial Cells Few <5 /hpf Urine Bacteria None seen None Seen /hpf Urine Mucus Few None Seen Urine Glucose Normal Normal mg/dL B-Type Natriuretic Peptide 441.10 0-100 pg/mL Imaging: CT abdomen pelvis and chest IMPRESSION: 1. Limited noncontrast exam. 2. Ascending aortic aneurysm measuring up to 45 mm. 3. Gallbladder hydrops. 4. Questionable mass in the tail of the pancreas. Recommend further evaluation with CT or MRI of the abdomen with contrast. 5. Wall thickening of the rectum with perirectal stranding. Finding could be infectious / inflammatory or neoplastic. Recommend clinical correlation. Consider further evaluation with colonoscopy. 6. Compression deformity of multiple thoracic and lumbar vertebral bodies. Consider further evaluation with MRI of the thoracic and lumbar spine. Assessment: Non-STEMI Hypercalcemia Rectal pain Constipation Possible proctitis Questionable mass tail of pancreas Plan: Patient examined by Dr. Mckeon also Dr. Mckeon performed a rectal exam, no palpable mass, no stool. No melena or red blood noted Stool softener, lactulose CEA, CA 19-9 Rocephin and Flagyl, for mild proctitis We will continue to monitor this patient Cardiology consults pending Discussed plan with patient, at bedside and RN Thank you for this consult Date of Service: Aug 17, 2024 Billing Provider: GARFIELD GEIGER Common Visit Codes: CONSULT ONLY Consultation Codes: [id number] CONSULT <60MIN GARFIELD GEIGER Aug 17, 2024 13:40
--- NOTE | 2024-08-17 13:55 | DVHINCON2 ---
Date of service: Aug 17, 2024 Referring Physician Mitch Reason for Consultation NSTEMI History of Present Illness This is an 88 year old male with a PMH of arthritis, CABG, HTN, pacemaker, and thyroid disease who was brought in by ambulance with complaints of generalized weakness with associated symptoms of fatigue, poor appetite, and constipation x 2 months. Patient is a poor historian and reports a gradual onset of persisting symptoms since their onset. Patient suspects on having a "blockage in his rectum" as the underlying cause of his symptoms. Patient reports losing approximately 11-13kg in weight since onset of symptoms. Patient states also on having a pacemaker placed recently on April 18 2024 in addition to consulting his PCP, currently, regarding for cholecystectomy s/p imaging studies showing "sludge" around his gallbladder. Chest x-ray shows NAD. CT Chest/ABD/PEL was a limited noncontrast exam. Aascending aortic aneurysm measuring up to 45 mm. Gallbladder hydrops. Questionable mass in the tail of the pancreas. Wall thickening of the rectum with perirectal stranding. Finding could be infectious / inflammatory or neoplastic. Compression deformity of multiple thoracic and lumbar vertebral bodies. INtial troponin 12126, peaked at 1254 and is down to 670. Patient was admitted to the hospital. I am asked to consult on this patient. Family History: Alcoholism Arthritis G8 BROTHER, Not a twin Allergies: Coded Allergies: NO KNOWN ALLERGIES (Unverified , 11/08/23) Home Meds Active Scripts Lactulose (Lactulose) 10 Gm/15 Ml Kati, 10 GM PO BID for 7 Days, #100 ML Prov:EKATERINA CLAIRE MD 11/08/23 Reported Medications Levothyroxine Sodium (Levothyroxine Sodium) 100 Mcg Tab, 1 TAB PO DAILY 08/17/24 Hydrochlorothiazide (Hydrochlorothiazide) 12.5 Mg Cap, 12.5 MG PO DAILY for 30 Days, MG 08/17/24 Amlodipine Besylate (Amlodipine Besylate) 5 Mg Tab, 20 MG PO DAILY for 30 Days, MG 08/17/24 Current Medications Current Medications Medications (Trade) Dose Ordered Sig/Shai Route PRN Reason Start Time Stop Time Status Last Admin Heparin Sodium/ Dextrose 250 ml @ 9 mls/hr Q24H IV 08/16/24 20:00 08/17/24 03:53 DC 08/16/24 20:00 Potassium Chloride 100 ml @ 50 mls/hr Q2H IV 08/16/24 21:45 08/17/24 01:44 DC 08/17/24 02:07 Nitroglycerin (Ntrostat Sublingual) 0.4 mg Q5MINP PRN SL FOR CHEST PAIN 08/16/24 22:00 Morphine Sulfate 2 mg Q30M PRN IV FOR CHEST PAIN 08/16/24 22:00 Amlodipine Besylate (Norvasc Tablet) 5 mg DAILY PO 08/18/24 10:00 Heparin Sodium/ Dextrose 250 ml @ 6 mls/hr Q24H IV 08/17/24 04:30 08/17/24 10:19 DC 08/17/24 04:36 Lactulose 30 ml DAILY PO 08/17/24 10:00 Polyethylene Glycol (Miralax 17GM Powder) 17 gm DAILYPRN PRN PO FOR CONSTIPATION 08/17/24 10:00 Heparin Sodium/ Dextrose 250 ml @ 8 mls/hr Q24H IV 08/17/24 10:30 Potassium Bicarbonate (Klor-Con/Ef) 50 meq DAILY PO 08/17/24 11:15 Review of Systems Constitutional: reports: fatigue; denies: chills, diaphoresis, fever, malaise, sweats, weakness, others EENTM: denies: blurred vision, double vision, ear bleeding, ear discharge, ear drainage, ear pain, ear ringing, eye pain, eye redness, hearing loss, mouth pain, mouth swelling, nasal discharge, nose bleeding, nose congestion, nose pain, photophobia, tearing, throat pain, throat swelling, voice changes, others Respiratory: denies: cough, hemoptysis, orthopnea, SOB at rest, shortness of breath, SOB with excertion, stridor, wheezing, others Cardiovascular: denies: chest pain, dizzy spells, diaphoresis, Dyspnea on exertion, edema, irregular heart beat, left arm pain, lightheadedness, palpitations, PND, syncope, others Gastrointestinal: reports: constipated, poor appetite; denies: abdomen distended, abdominal pain, blood streaked bowels, diarrhea, dysphagia, difficul ty swallowing, hematemesis, melena, nausea, poor fluid intake, rectal bleeding, rectal pain, vomiting, others Genitourinary: denies: burning, dysuria, flank pain, frequency, hematuria, incontinence, penile discharge, penile sore, pain, testicle pain, testicle swelling, urgency, others Neurological: reports: weakness; denies: dizziness, fainting, headache, left sided numbness, left sided weakness, numbness, paresthesia, pre-existing deficit, right sided numbness, right sided weakness, seizure, speech problems, tingling, tremors, others Musculoskeletal: denies: back pain, gout, joint pain, joint swelling, muscle pain, muscle stiffness, neck pain, others Integumetry: denies: bruises, change in color, change in hair/nails, dryness, laceration, lesions, lumps, rash, wounds, others Allergic/Immunocompromised: denies: Difficulty Healing, Frequent Infections, Hives, Itching, others Hematologic/Lymphatic: denies: anemia, blood clots, easy bleeding, easy bruising, swollen glands, others Endocrine: denies: excessive hunger, excessive sweating, excessive thirst, excessive urination, flushing, intolerance to cold, intolerance to heat, unexplained weight gain, unexplained weight loss, others Psychiatric: denies: anxiety, bipolar disorder, depression, hopeless, panic disorder, schizophrenia, sleepless, suicidal, others All Other Systems: Reviewed and Negative Vital Signs Vital Signs Date Time Temp Pulse Resp B/P (MAP) Pulse Ox O2 Delivery O2 Flow Rate FiO2 08/17/24 08:39 98.0 71 16 138/78 (98) 94 98.0 08/17/24 08:00 Room Air* 0 21 Physical Exam GENERAL: Awake, alert, oriented. LUNGS: Clear. CARDIOVASCULAR: Heart sounds are good. ABDOMEN: Soft. Labs/Diagnostic Data Labs Test 08/17/24 09:44 08/17/24 05:48 08/17/24 04:58 08/16/24 21:04 Range/Units Prothrombin Time 10.9 9.3-11.8 sec Prothrombin Time INR 1.03 0.9-1.15 Activated Partial Thromboplast Time 41.2 H 24.5-34.5 SEC Troponin I High Sensitivity 721 *H </=54 ng/L White Blood Count 5.7 # 4.4-10.8 10^3/uL Red Blood Count 2.77 L 4.5-5.90 10^6/uL Hemoglobin 9.7 L 13.5-17.5 g/dL Hematocrit 27.9 #L 41.0-53.0 % Mean Corpuscular Volume 100.5 H 80.0-100.0 fL Mean Corpuscular Hemoglobin 35.1 H 28.0-32.0 pg Mean Corpuscular Hemoglobin Concent 34.9 32.0-36.0 g/dL Red Cell Distribution Width 15.3 H 11.8-14.3 % Platelet Count 190 140-450 10^3/uL Mean Platelet Volume 8.3 6.9-10.8 fL Neutrophils (%) (Auto) 84.9 H 37.0-80.0 % Lymphocytes (%) (Auto) 5.2 L 10.0-50.0 % Monocytes (%) (Auto) 9.6 0.0-12.0 % Eosinophils (%) (Auto) 0.2 0.0-7.0 % Basophils (%) (Auto) 0.1 0.0-2.0 % Neutrophils # (Auto) 4.8 1.6-8.6 10 ^3/uL Lymphocytes # (Auto) 0.3 L 0.4-5.4 10 ^3/uL Monocytes # (Auto) 0.5 0-1.3 10 ^3/uL Eosinophils # (Auto) 0 0-0.8 10 ^3/uL Basophils # (Auto) 0 0-0.2 10 ^3/uL Nucleated Red Blood Cells 0.0 % Sodium Level 135 #L 136-145 mmol/L Potassium Level 3.1 L 3.5-5.1 mmol/L Chloride Level 100 98-107 mmol/L Carbon Dioxide Level 28 20-31 mmol/L Anion Gap 7 5-15 Blood Urea Nitrogen 32 H 9-23 mg/dL Creatinine 1.67 H 0.700-1.30 mg/dL Glomerular Filtration Rate Calc 39 >90 mL/min BUN/Creatinine Ratio 19.2 10.0-20.0 Serum Glucose 95 74-106 mg/dL Calcium Level 14.2 *H 8.7-10.4 mg/dL Total Bilirubin 0.6 0.2-1.0 mg/dL Aspartate Amino Transferase (AST) 29 13-40 U/L Alanine Aminotransferase (ALT) 15 7-40 U/L Alkaline Phosphatase 67 46-116 U/L Total Protein 7.0 5.7-8.2 g/dL Albumin 3.3 3.2-4.8 g/dL Thyroid Stimulating Hormone (TSH) 0.32 L 0.55-4.78 uIU/mL Parathyroid Hormone (Intact) 36.5 18.4-80.1 pg/mL Magnesium Level 2.2 1.6-2.6 mg/dL Urine Color Yellow Yellow Urine Clarity Clear Clear Urine pH 6.5 5.0-9.0 Urine Specific [place] 1.008 1.001-1.035 Urine Protein Trace H Negative Urine Ketones Negative Negative Urine Blood Negative Negative /uL Urine Nitrite Negative Negative Urine Bilirubin Negative Negative Urine Urobilinogen Normal Negative mg/dL Urine Leukocyte Esterase Negative Negative /uL Urine RBC 1 0 - 3 /hpf Urine WBC 1 0 - 3 /hpf Urine Squamous Epithelial Cells Few <5 /hpf Urine Bacteria None seen None Seen /hpf Urine Mucus Few None Seen Urine Glucose Normal Normal mg/dL Test 08/16/24 18:08 Range/Units B-Type Natriuretic Peptide 441.10 0-100 pg/mL Assessment NSTEMI (non-ST elevated myocardial infarction). Acute kidney injury. Hypercalcemia. Rectal pain. Constipation. Possible proctitis. Questionable mass tail of pancreas. Plan/Recommendation I agree with your ongoing assessment and care of plan. Echocardiogram. Amlodipine. IV antibiotics as ordered. Heparin drip per protocol. Morphine for pain management. Additional plan as per the hospital course. A total of 45 minutes was spent reviewing the patient record, examining the patient, making a diagnostic and therapeutic plan, discussing this plan with medical personnel, following up on diagnostic studies and following the patient for clinical stability excluding any and all procedures. At least 50% of this time was spent in direct, [id number] contact. Plan discussed with: Patient YENY VELEZ MD Aug 17, 2024 12:03
[2024-08-17] MEDS: metroNIDAZOLE 500MG/100ML 100 ML IV SCH (14:45)
--- NOTE | 2024-08-17 15:24 | ECG ---
[facility] Test Date: 2024-08-16 Test Time: 19:27:23 Pat Name: GUSTAVO BURCH Department: er Room: 0219T A Gender: M [employer]: yuri : 1935 Requested By: ANDREINA TORRES Order Number: [id number] Reading MD: Hiren Vick Measurements Intervals [place] Rate: 74 P: 4 MO: 57 QRS: -63 QRSD: 177 T: 107 QT: 470 QTc: 522 Interpretive Statements Atrial-sensed ventricular-paced rhythm No further analysis attempted due to paced rhythm Baseline wander in lead(s) V2 Electronically Signed On 08-17-2024 15:38:28 PDT by Hiren Vick Please click the below link to view image of tracing.
[2024-08-17 17:06] LABS: INR 1.01 (0.9-1.15); Prothrombin Time 10.7 sec (9.3-11.8)
[2024-08-17] MEDS: CALCITONIN 400unit/2ml Vial (200unit/ml) SC ONE (18:38)
[2024-08-17] MEDS: hydroCHLOROthiazide 25 MG TAB PO ONE (21:18)
[2024-08-17 22:57] LABS: Partial Thromboplastin Time 36.7 SEC (24.5-34.5); Prothrombin Time 10.6 sec (9.3-11.8)
[2024-08-18] VITALS (7 sets, daily range): BP systolic 130–153; BP diastolic 68–94; PULSE 67–93; RESP 17–19; TEMP 97.4–98.3; O2SAT 94–96
[2024-08-18] MEDS: cloNIDine HCL 0.1 MG TAB PO ONE ×2 (01:16→04:29)
[2024-08-18] MEDS: HEPARIN DRIP/D5W 100UNITS/ML 250 ML IV SCH ×2 (01:19→07:51)
[2024-08-18 07:13] LABS: Basophils # (auto) 0 10 ^3/uL (0-0.2); Eosinophils # (auto) 0 10 ^3/uL (0-0.8); Hemoglobin 9.9 g/dL (13.5-17.5); Lymphocytes # (auto) 0.5 10 ^3/uL (0.4-5.4); Monocytes # (auto) 0.5 10 ^3/uL (0-1.3); Monocytes % (auto) 9.5 % (0.0-12.0); Neutrophils # (auto) 4.4 10 ^3/uL (1.6-8.6); Nucleated Red Blood Cells % 0.1 %; White Blood Cell 5.4 10^3/uL (4.4-10.8)
[2024-08-18 07:16] LABS: Basophils % (auto) 0.2 % (0.0-2.0); Eosinophils % (auto) 0.2 % (0.0-7.0); Hematocrit 27.9 % (41.0-53.0); Lymphocytes % (auto) 9.1 % (10.0-50.0); Mean Corpuscular Hemoglobin 35.4 pg (28.0-32.0); Mean Corpuscular Hgb Conc. 35.3 g/dL (32.0-36.0); Mean Corpuscular Volume 100.2 fL (80.0-100.0); Platelet Count (auto) 209 10^3/uL (140-450); Red Blood Cells 2.79 10^6/uL (4.5-5.90); Red Cell Distribution Width 15.7 % (11.8-14.3)
[2024-08-18 07:25] LABS: Alanine Aminotransferase 14 U/L (7-40); Albumin 3.5 g/dL (3.2-4.8); Alkaline Phosphatase 67 U/L (46-116); Anion Gap 6 (5-15); Aspartate Aminotransferase 26 U/L (13-40); BUN/Creatinine Ratio 15.4 (10.0-20.0); Blood Urea Nitrogen 24 mg/dL (9-23); Carbon Dioxide 27 mmol/L (20-31); Chloride 100 mmol/L (98-107); Glucose 102 mg/dL (74-106); Potassium 3.1 mmol/L (3.5-5.1); Sodium 133 mmol/L (136-145)
[2024-08-18 07:26] LABS: Bilirubin, Total 0.6 mg/dL (0.2-1.0); Total Protein 6.9 g/dL (5.7-8.2)
[2024-08-18 07:36] LABS: INR 1.05 (0.9-1.15); Prothrombin Time 11.1 sec (9.3-11.8)
[2024-08-18 07:42] LABS: Partial Thromboplastin Time 83.5 SEC (24.5-34.5)
--- NOTE | 2024-08-18 08:18 | DVHINCON2 ---
Date of service: Aug 18, [address] Mary Meyer Reason for Consultation Hypercalcemia weight loss History of Present Illness 88 years old gentleman who gives a history of coronary artery disease bypass surgery and a pacemaker hypertension, hypothyroidism. He says he has lost nearly 30 lb of weight in the last six weeks with a poor appetite. No feeling of nausea or vomiting. No abdominal pains. He has been constipated. He does take calcium 2-4 a day and vitamin D, E and B12. He has been lethargic and very weak and tired. He is found to have high calcium. On 08/16/2024: Sodium 130 potassium is 2.6 BUN 33 creatinine was two calcium 17.2 total protein 8.7 albumin 4.2 PTH 36.5 TSH 0.32 vitamin-D: 76.7 CEA 1.31 White count 5.4 hemoglobin 9.9 MCV 100.2 platelets 209 Appetite is B surface antigen and C antibodies negative CT of the chest abdomen and pelvis without contrast showed questionable mass in the tail of the pancreas. Further CT with contrast was recommended. Wall thickening of the rectum with perirectal stranding. Compression deformity of multiple thoracic and lumbar vertebral bodies Patient has been given hydration and the calcium has come down to 13 with a GFR of 42 The patient is still feeling tired. He feels slightly better. Does have some back pains. No nausea vomiting fevers night sweats no bruising or bleeding. Past Medical History Coronary artery disease triple-vessel bypass surgery 14 years back Pacemaker Hypertension Hypothyroidism Hyperlipidemia Family History: Alcoholism Arthritis G8 BROTHER, Not a twin Family History Unremarkable for malignancy or hematological disorders Social History No smoking. Occasional glass of red wine. No drugs Allergies: Coded Allergies: NO KNOWN ALLERGIES (Unverified , 11/08/23) Home Meds Active Scripts Lactulose (Lactulose) 10 Gm/15 Ml Kati, 10 GM PO BID for 7 Days, #100 ML Prov:EKATERINA CLAIRE MD 11/08/23 Reported Medications Levothyroxine Sodium (Levothyroxine Sodium) 100 Mcg Tab, 1 TAB PO DAILY 08/17/24 Hydrochlorothiazide (Hydrochlorothiazide) 12.5 Mg Cap, 12.5 MG PO DAILY for 30 Days, MG 08/17/24 Amlodipine Besylate (Amlodipine Besylate) 5 Mg Tab, 20 MG PO DAILY for 30 Days, MG 08/17/24 Current Medications Current Medications Medications (Trade) Dose Ordered Sig/Shai Route PRN Reason Start Time Stop Time Status Last Admin Amlodipine Besylate (Norvasc Tablet) 5 mg DAILY PO 08/18/24 10:00 Lactulose 30 ml DAILY PO 08/17/24 10:00 08/17/24 12:24 Polyethylene Glycol (Miralax 17GM Powder) 17 gm DAILYPRN PRN PO FOR CONSTIPATION 08/17/24 10:00 Heparin Sodium/ Dextrose 250 ml @ 8 mls/hr Q24H IV 08/17/24 10:30 08/18/24 00:04 DC 08/17/24 10:30 Potassium Bicarbonate (Klor-Con/Ef) 50 meq DAILY PO 08/17/24 11:15 08/17/24 12:23 Ceftriaxone Sodium 50 ml @ 100 mls/hr DAILY@09 IV 08/18/24 09:00 Metronidazole 100 ml @ 100 mls/hr Q8HR IV 08/17/24 14:00 08/18/24 06:14 Heparin Sodium/ Dextrose 250 ml @ 10 mls/hr Q24H IV 08/18/24 00:15 08/18/24 07:47 DC 08/18/24 01:19 Hydralazine HCl (Apresoline Injection) 10 mg Q4HP PRN IV SBP>150 08/18/24 00:45 Heparin Sodium/ Dextrose 250 ml @ 8 mls/hr Q24H IV 08/18/24 08:00 08/18/24 07:51 Vital Signs Vital Signs Date Time Temp Pulse Resp B/P (MAP) Pulse Ox O2 Delivery O2 Flow Rate FiO2 08/18/24 05:00 97.5 93 19 152/94 (113) 94 97.5 08/17/24 20:00 Room Air* 0 21 Physical Exam Moderately built and nourished, in no acute distress, alert and oriented. No jaundice Head and neck: Unremarkable for any masses or neck nodes. No conjunctival or mucosal hemorrhage Lungs: Clear Cardiovascular: S1-S2 heard well Abdomen: No organomegaly, tenderness or ascites. Bowel sounds are present. Extremities: No clubbing edema cyanosis or calf tenderness. Skin: Unremarkable for petechia purpura ecchymosis Lymphadenopathy: None Neurological exam: No focal deficit Labs/Diagnostic Data Labs Test 08/18/24 06:25 08/17/24 16:22 08/17/24 11:44 08/17/24 05:48 Range/Units White Blood Count 5.4 4.4-10.8 10^3/uL Red Blood Count 2.79 L 4.5-5.90 10^6/uL Hemoglobin 9.9 L 13.5-17.5 g/dL Hematocrit 27.9 L 41.0-53.0 % Mean Corpuscular Volume 100.2 H 80.0-100.0 fL Mean Corpuscular Hemoglobin 35.4 H 28.0-32.0 pg Mean Corpuscular Hemoglobin Concent 35.3 32.0-36.0 g/dL Red Cell Distribution Width 15.7 H 11.8-14.3 % Platelet Count 209 140-450 10^3/uL Mean Platelet Volume 8.3 6.9-10.8 fL Neutrophils (%) (Auto) 81.0 H 37.0-80.0 % Lymphocytes (%) (Auto) 9.1 L 10.0-50.0 % Monocytes (%) (Auto) 9.5 0.0-12.0 % Eosinophils (%) (Auto) 0.2 0.0-7.0 % Basophils (%) (Auto) 0.2 0.0-2.0 % Neutrophils # (Auto) 4.4 1.6-8.6 10 ^3/uL Lymphocytes # (Auto) 0.5 0.4-5.4 10 ^3/uL Monocytes # (Auto) 0.5 0-1.3 10 ^3/uL Eosinophils # (Auto) 0 0-0.8 10 ^3/uL Basophils # (Auto) 0 0-0.2 10 ^3/uL Nucleated Red Blood Cells 0.1 % Prothrombin Time 11.1 9.3-11.8 sec Prothrombin Time INR 1.05 0.9-1.15 Activated Partial Thromboplast Time 83.5 *H 24.5-34.5 SEC Sodium Level 133 L 136-145 mmol/L Potassium Level 3.1 L 3.5-5.1 mmol/L Chloride Level 100 98-107 mmol/L Carbon Dioxide Level 27 20-31 mmol/L Anion Gap 6 5-15 Blood Urea Nitrogen 24 H 9-23 mg/dL Creatinine 1.56 H 0.700-1.30 mg/dL Glomerular Filtration Rate Calc 42 >90 mL/min BUN/Creatinine Ratio 15.4 10.0-20.0 Serum Glucose 102 74-106 mg/dL Calcium Level 13.0 *H 8.7-10.4 mg/dL Total Bilirubin 0.6 0.2-1.0 mg/dL Aspartate Amino Transferase (AST) 26 13-40 U/L Alanine Aminotransferase (ALT) 14 7-40 U/L Alkaline Phosphatase 67 46-116 U/L Total Protein 6.9 5.7-8.2 g/dL Albumin 3.5 3.2-4.8 g/dL Troponin I High Sensitivity 670 *H </=54 ng/L Carcinoembryonic Antigen 1.31 <=5.0 ng/mL Vitamin D 25-Hydroxy 76.7 30.0-100 ng/mL Thyroid Stimulating Hormone (TSH) 0.32 L 0.55-4.78 uIU/mL Parathyroid Hormone (Intact) 36.5 18.4-80.1 pg/mL Hepatitis B Surface Antigen Negative Negative Hepatitis C Antibody Negative Negative Test 08/17/24 04:58 08/16/24 21:04 08/16/24 18:08 Range/Units Magnesium Level 2.2 1.6-2.6 mg/dL Urine Color Yellow Yellow Urine Clarity Clear Clear Urine pH 6.5 5.0-9.0 Urine Specific [place] 1.008 1.001-1.035 Urine Protein Trace H Negative Urine Ketones Negative Negative Urine Blood Negative Negative /uL Urine Nitrite Negative Negative Urine Bilirubin Negative Negative Urine Urobilinogen Normal Negative mg/dL Urine Leukocyte Esterase Negative Negative /uL Urine RBC 1 0 - 3 /hpf Urine WBC 1 0 - 3 /hpf Urine Squamous Epithelial Cells Few <5 /hpf Urine Bacteria None seen None Seen /hpf Urine Mucus Few None Seen Urine Glucose Normal Normal mg/dL B-Type Natriuretic Peptide 441.10 0-100 pg/mL Assessment 1. Hypercalcemia, normal PTH, the etiology could be underlying malignancy, the patient has been taking 2-4 calciums a day at home with vitamin-D which may contribute to hypercalcemia also, but the patient is losing weight and there is some CT scan findings of suspicious findings in the rectum in the pancreas so an underlying malignancy definitely needs to be ruled out. May rule out the possibility of plasma cell dyscrasia 2. Hypertension/coronary artery disease bypass surgery and pacemaker 3. Hypothyroidism 4. Hyperlipidemia Plan/Recommendation We will check a serum protein electrophoresis am immune fixation LDH Suggest doing a CT of the abdomen pelvis with IV contrast as the kidney functions are improving Patient will need the colonoscopic evaluation of the abnormal rectal findings CA 19-9 is pending Vein give a small dose of Aredia 30 mg IV with the hydration We will do a bone scan Plan discussed with: Patient JOSE MIGUEL FORD MD Aug 18, 2024 08:17
[2024-08-18] MEDS: cefTRIAXone 1GM/50ML D5W 50 ML IV SCH (09:16)
[2024-08-18] MEDS: amLODIPine BESYLATE 5 MG TAB PO SCH (09:20)
[2024-08-18] MEDS: POTASSIUM EFFERVESENT TAB 25 MEQ PO ONE (09:21)
--- NOTE | 2024-08-18 09:53 | DVHSR ---
APPROVED REPORT EXAM: Two-dimensional and M-mode echocardiogram with Doppler and color Doppler. Blood Pressure: 170/87 mmHg Surgery/Intervention Pacemaker: RISK FACTORS Height: 5'8", Weight: 147 DIMENSIONS LVDd3.4 (3.8-5.7cm)LA (2D)4.7 (1.9-4.0cm)Aortic Root3.7 (2.0-3.7cm) LVDs2.4 (2.5-4.0cm)LA (MM) (1.9-4.0cm)Aortic Cusp Exc1.6 (1.5-2.0cm) EF (%) 55.0 (55-70%)Rt. Atrium3.6 (1.9-4.0cm)Asc. Aorta cm IVSd1.1 (0.7-1.1cm)RV (D) (1.8-2.4cm) PWd1.1 (0.7-1.1cm) Mitral Valve MitralMitral Stenosis E wave0.65m/sMV Mean GR.mmHg A wave0.77m/sMV Peak GR.mmHg E/A ratio0.82D MVAcm2 DECEL [id number] 1/2 Timems Aortic Valve Aortic ValveAortic Stenosis V10.91m/Kulwinder Mean GR.5mmHg V21.63m/Kulwinder Peak GR.11mmHg LVOT Diameter2.0 (1.8-2.4cm)Doppler AVA1.75cm2 Pulmonic Valve V21.03m/s Tricuspid Valve TR Velocity2.51m/s [id number] Other Information Technically limited study due to patient position. Conclusion [id number] concentric left ventricular hypertrophy. Normal left ventricular systolic function estimated ejection fraction of 65%. There is a grade 1 diastolic dysfunction. Normal right ventricular size and dimension. Normal right ventricular systolic function. Right vent ricular systolic pressure estimated at 28 mm of mercury Normal biatrial size and dimension. The aortic valve is thickened and sclerotic. The mitral valve appears normal structure and function. There is mild tricuspid valve regurgitation. The pulmonary valve is grossly normal. No pericardial effusion.
[2024-08-18] MEDS: PAMIDRONATE DISODIUM IV ONE (10:34)
[2024-08-18] MEDS: SOD CHL 0.45% IV ONE (10:34)
[2024-08-18] MEDS ORDERED: LORA-1121 PO (10:46)
[2024-08-18] MEDS ORDERED: ASPI-543 PO (10:46)
[2024-08-18] MEDS ORDERED: ALLO100T PO (10:46)
[2024-08-18] MEDS ORDERED: POTA-215 PO (10:46)
[2024-08-18] MEDS ORDERED: HYDR25TA4 PO (10:46)
[2024-08-18] MEDS ORDERED: LORazepam 0.5 MG TAB PO PRN (12:15)
[2024-08-18 12:22] LABS: Urine Bacteria None Seen /hpf (None Seen)
--- NOTE | 2024-08-18 12:32 | DVHPN2 ---
Progress Note - Dictate Date Seen: Aug 18, 2024 Medical Necessity Reason Pt with a Central, PICC or Fol: Yes Subjective Denies chest pain. States has decreased appetite. vital signs Vital Sign Date Time Temp Pulse Resp B/P (MAP) Pulse Ox O2 Delivery O2 Flow Rate FiO2 08/18/24 09:20 130/68 08/18/24 08:00 97.4 67 17 94 97.4 08/17/24 20:00 Room Air* 0 21 Total Intake and Output 08/17/24 08/17/24 08/18/24 15:00 23:00 07:00 Intake Total 800 ml 100 ml Output Total 900 ml 1400 ml Balance -100 ml -1300 ml medications Current Medications Medications Dose Ordered Sig/Shai Route Start Time Stop Time Status Last Admin Dose Admin Nitroglycerin 0.4 mg Q5MINP PRN SL 08/16/24 22:00 Morphine Sulfate 2 mg Q30M PRN IV 08/16/24 22:00 Amlodipine Besylate 5 mg DAILY PO 08/18/24 10:00 08/18/24 09:20 5 MG Lactulose 30 ml DAILY PO 08/17/24 10:00 08/17/24 12:24 30 ML Polyethylene Glycol 17 gm DAILYPRN PRN PO 08/17/24 10:00 Potassium Bicarbonate 50 meq DAILY PO 08/17/24 11:15 08/17/24 12:23 50 MEQ Ceftriaxone Sodium 50 ml @ 100 mls/hr DAILY@09 IV 08/18/24 09:00 08/18/24 09:16 100 MLS/HR Metronidazole 100 ml @ 100 mls/hr Q8HR IV 08/17/24 14:00 08/18/24 06:14 100 MLS/HR Hydralazine HCl 10 mg Q4HP PRN IV 08/18/24 00:45 Heparin Sodium/ Dextrose 250 ml @ 8 mls/hr Q24H IV 08/18/24 08:00 08/18/24 07:51 8 MLS/HR Lorazepam 1 mg ONCE PRN PO 08/18/24 12:15 UNV objective General appearance: No acute distress Respiratory: Lungs clear to auscultation. No wheezing, crackles Cardiovascular: Regular rate and rhythm, no murmurs. No edema Abdomen: Soft, nondistended, nontender, bowel sounds present MSK: Normal range of motion. Neuro: Alert, no neurological deficits Psych: Appropriate mood and affect. laboratory and microbiology Laboratory Tests 08/18/24 06:25 Test 08/18/24 06:25 Range/Units Serum Glucose 102 74-106 mg/dL Problem List 1. NSTEMI 2. ROYAL 3. Hypercalcemia 4. 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 Constipation Assessment/Plan -Cardiology consulted, Dr. Munguia. Continue heparin drip. No plan for left heart cath at this time. TTE shows normal LVEF. -Nephrology consulted for ROYAL. Continue IVF. Noted to be improving. -GI consulted for concern of rectal mass. -Hematology oncology consulted for hypercalcemia with concern for underlying mass in tail of pancreas and rectum. Workup for multiple myeloma pending. Follow-up imaging with MRI of the abdomen and pelvis with contrast pending. -MiraLAX 17 g daily as needed for constipation -Continue Ceftriaxone and metronidazole due to concern for underlying enteritis. -PT eval ordered -Full Code Dietary Evaluation Review Comments: 1) Continue to monitor pt PO intake to meet at least 75% of meals 2) Continue current plan of care Expected Outcomes/Goals: F/U in 3-5 days Plan discussed with: Patient, YOHANA Pagan Aug 18, 2024 12:32
[2024-08-18 12:47] LABS: Urine Blood 1+ /uL (Negative); Urine Clarity Clear (Clear); Urine Color Light-Yellow (Yellow); Urine Hyaline Cast FEW /lpf (0 - 2); Urine Protein, UAD Negative (Negative); Urine Specific Gravity 1.009 (1.001-1.035); Urine Urobilinogen Normal (Negative); Urine WBC 4 /hpf (0 - 3)
[2024-08-18 12:52] LABS: Protein, Urine 32.4 mg/dL (1-14)
[2024-08-18 12:55] LABS: Creatinine, Urine 42.61 mg/dL (30.0-125.0)
--- NOTE | 2024-08-18 14:33 | DVHPN2 ---
Progress Note Date Seen: Aug 18, 2024 Medical Necessity Reason Pt with a Central, PICC or Fol: Yes Subjective Review of Systems Pt resting in bed, in no acute distress Patient reports: No new complaints, Feels better Objective vital signs Vital Sign Date Time Temp Pulse Resp B/P (MAP) Pulse Ox O2 Delivery O2 Flow Rate FiO2 08/18/24 09:20 130/68 08/18/24 08:00 97.4 67 17 94 97.4 08/17/24 20:00 Room Air* 0 21 Total Intake and Output 08/17/24 08/17/24 08/18/24 15:00 23:00 07:00 Intake Total 800 ml 100 ml Output Total 900 ml 1400 ml Balance -100 ml -1300 ml medications Current Medications Medications Dose Ordered Sig/Shai Route Start Time Stop Time Status Last Admin Dose Admin Nitroglycerin 0.4 mg Q5MINP PRN SL 08/16/24 22:00 Morphine Sulfate 2 mg Q30M PRN IV 08/16/24 22:00 Amlodipine Besylate 5 mg DAILY PO 08/18/24 10:00 08/18/24 09:20 5 MG Lactulose 30 ml DAILY PO 08/17/24 10:00 08/17/24 12:24 30 ML Polyethylene Glycol 17 gm DAILYPRN PRN PO 08/17/24 10:00 Potassium Bicarbonate 50 meq DAILY PO 08/17/24 11:15 08/18/24 14:15 50 MEQ Ceftriaxone Sodium 50 ml @ 100 mls/hr DAILY@09 IV 08/18/24 09:00 08/18/24 09:16 100 MLS/HR Metronidazole 100 ml @ 100 mls/hr Q8HR IV 08/17/24 14:00 08/18/24 14:15 100 MLS/HR Hydralazine HCl 10 mg Q4HP PRN IV 08/18/24 00:45 Heparin Sodium/ Dextrose 250 ml @ 8 mls/hr Q24H IV 08/18/24 08:00 08/18/24 07:51 8 MLS/HR Examination General: Appears stated age, in no acute distress Pulm: Clear to auscultation bilaterally CVS: RRR, normal S1 and S2 Ext: No edema noted Neuro: Alert laboratory and microbiology Laboratory Tests 08/18/24 06:25 Test 08/18/24 06:25 Range/Units Serum Glucose 102 74-106 mg/dL Labs and/or images reviewed: Labs reviewed by me Problem List/Assessment/Plan Problem List/Assessment/Plan Acute kidney injury superimposed Chronic Kidney Disease secondary hemodynamic mediated-ongoing NSTEMI Dehydration Hypercalcemia rule out malignancy Hypokalemia due to potassium depletion-ongoing Hyponatremia due to dehydration-ongoing Anemia of chronic kidney disease Recommendations Serial chemistry panels Continue closely monitoring fluid and electrolytes Avoid nephrotoxic medications Muse catheter Strict I&Os KCL replacement as needed We will continue to follow Plan discussed with: Patient, Other (Dr Fred Sanchez) Dietary Evaluation Review Comments: 1) Continue to monitor pt PO intake to meet at least 75% of meals 2) Continue current plan of care Expected Outcomes/Goals: F/U in 3-5 days DAWN RADER Aug 18, 2024 14:33
[2024-08-18] MEDS ORDERED: DOCUSATE SOD 100 MG CAP PO PRN (15:15)
[2024-08-18 15:17] LABS: INR 1.04 (0.9-1.15)
[2024-08-18] MEDS ORDERED: CARV12.544 PO (17:34)
--- NOTE | 2024-08-18 18:06 | DVHPN2 ---
Progress Note - Dictate Date Seen: Aug 18, 2024 Medical Necessity Reason Pt with a Central, PICC or Fol: No Subjective Patient was seen and evaluated in follow up. Patient is complaining of generalized discomfort. Patient had a Muse placed due to urinary retention. HGB 9.9, HCT 27.9, PTT 83.5, NA 133, K 3.1, BUN 24, CENTRALIZED TRAFFIC CONTROL OPERATOR 1.56, CA 13. vital signs Vital Sign Date Time Temp Pulse Resp B/P (MAP) Pulse Ox O2 Delivery O2 Flow Rate FiO2 08/18/24 09:20 130/68 08/18/24 08:00 97.4 67 17 94 97.4 08/17/24 20:00 Room Air* 0 21 Total Intake and Output 08/17/24 08/17/24 08/18/24 15:00 23:00 07:00 Intake Total 800 ml 100 ml Output Total 900 ml 1400 ml Balance -100 ml -1300 ml medications Current Medications Medications Dose Ordered Sig/Shai Route Start Time Stop Time Status Last Admin Dose Admin Nitroglycerin 0.4 mg Q5MINP PRN SL 08/16/24 22:00 Morphine Sulfate 2 mg Q30M PRN IV 08/16/24 22:00 Amlodipine Besylate 5 mg DAILY PO 08/18/24 10:00 08/18/24 09:20 5 MG Lactulose 30 ml DAILY PO 08/17/24 10:00 08/17/24 12:24 30 ML Polyethylene Glycol 17 gm DAILYPRN PRN PO 08/17/24 10:00 Potassium Bicarbonate 50 meq DAILY PO 08/17/24 11:15 08/17/24 12:23 50 MEQ Ceftriaxone Sodium 50 ml @ 100 mls/hr DAILY@09 IV 08/18/24 09:00 08/18/24 09:16 100 MLS/HR Metronidazole 100 ml @ 100 mls/hr Q8HR IV 08/17/24 14:00 08/18/24 06:14 100 MLS/HR Hydralazine HCl 10 mg Q4HP PRN IV 08/18/24 00:45 Heparin Sodium/ Dextrose 250 ml @ 8 mls/hr Q24H IV 08/18/24 08:00 08/18/24 07:51 8 MLS/HR objective GENERAL: Awake, alert, oriented. LUNGS: Clear. CARDIOVASCULAR: Heart sounds are good. ABDOMEN: Soft. laboratory and microbiology Laboratory Tests 08/18/24 06:25 Test 08/18/24 06:25 Range/Units Serum Glucose 102 74-106 mg/dL Problem List NSTEMI (non-ST elevated myocardial infarction). Acute kidney injury. Hypercalcemia. Rectal pain. Constipation. Possible proctitis. Questionable mass tail of pancreas. Assessment/Plan Continued all current supportive medical care. Amlodipine. IV antibiotics as ordered. Heparin drip per protocol. Morphine for pain management. Additional plan as per the hospital course. Dietary Evaluation Review Comments: 1) Continue to monitor pt PO intake to meet at least 75% of meals 2) Continue current plan of care Expected Outcomes/Goals: F/U in 3-5 days Plan discussed with: Patient YENY VELEZ MD Aug 18, 2024 11:43
[2024-08-18] MEDS ORDERED: amLODIPine BESYLATE 5 MG TAB PO SCH (20:00)
[2024-08-18] MEDS: CARVEDILOL 12.5 MG TAB PO SCH (21:37)
[2024-08-18] MEDS: LORazepam 0.5 MG TAB PO PRN (21:53)
[2024-08-18 22:59] LABS: INR 1.07 (0.9-1.15); Partial Thromboplastin Time 55.6 SEC (24.5-34.5); Prothrombin Time 11.3 sec (9.3-11.8)
[2024-08-19] VITALS (9 sets, daily range): BP systolic 132–173; BP diastolic 60–99; PULSE 63–92; RESP 16–19; TEMP 97.2–98.1; O2SAT 93–96
[2024-08-19] MEDS: LEVOTHYROXINE SODIUM 100 MCG TAB PO SCH (06:16)
[2024-08-19 06:54] LABS: Basophils # (auto) 0 10 ^3/uL (0-0.2); Eosinophils # (auto) 0 10 ^3/uL (0-0.8); Hematocrit 27.4 % (41.0-53.0); Hemoglobin 9.5 g/dL (13.5-17.5); Lymphocytes # (auto) 0.4 10 ^3/uL (0.4-5.4); Monocytes # (auto) 0.5 10 ^3/uL (0-1.3); Neutrophils # (auto) 3.5 10 ^3/uL (1.6-8.6); White Blood Cell 4.4 10^3/uL (4.4-10.8)
[2024-08-19 06:57] LABS: Basophils % (auto) 0.4 % (0.0-2.0); Eosinophils % (auto) 0.8 % (0.0-7.0); Lymphocytes % (auto) 8.6 % (10.0-50.0); Mean Corpuscular Hemoglobin 35.1 pg (28.0-32.0); Mean Corpuscular Hgb Conc. 34.7 g/dL (32.0-36.0); Monocytes % (auto) 11.4 % (0.0-12.0); Neutrophils % (auto) 78.8 % (37.0-80.0); Nucleated Red Blood Cells % 0.1 %; Platelet Count (auto) 193 10^3/uL (140-450); Red Blood Cells 2.72 10^6/uL (4.5-5.90); Red Cell Distribution Width 15.7 % (11.8-14.3)
[2024-08-19 07:06] LABS: PSA Free 0.21 ng/mL; Prostate Specific Antigen 1.2 ng/mL (0.0-4.0)
[2024-08-19 07:18] LABS: INR 1.12 (0.9-1.15); Prothrombin Time 11.8 sec (9.3-11.8)
[2024-08-19 07:21] LABS: Partial Thromboplastin Time 77.2 SEC (24.5-34.5)
[2024-08-19 07:22] LABS: Albumin 2.6 g/dL (3.2-4.8); Alkaline Phosphatase 54 U/L (46-116); Anion Gap 9 (5-15); Aspartate Aminotransferase 14 U/L (13-40); BUN/Creatinine Ratio 14.1 (10.0-20.0); Bilirubin, Total 0.4 mg/dL (0.2-1.0); Blood Urea Nitrogen 20 mg/dL (9-23); Carbon Dioxide 23 mmol/L (20-31); Chloride 104 mmol/L (98-107); Glucose 85 mg/dL (74-106); Potassium 2.8 mmol/L (3.5-5.1); Sodium 136 mmol/L (136-145); Total Protein 5.5 g/dL (5.7-8.2)
[2024-08-19 07:24] LABS: Alanine Aminotransferase < 9 U/L (7-40)
[2024-08-19 08:06] LABS: Immunoglobulin A 11 mg/dL (61-437); Immunoglobulin G, Serum 2588 mg/dL (603-1613); Immunoglobulin M 16 mg/dL (15-143)
[2024-08-19] MEDS: hydroCHLOROthiazide 25 MG TAB PO SCH (09:18)
[2024-08-19] MEDS: HEPARIN DRIP/D5W 100UNITS/ML 250 ML IV SCH (09:30)
[2024-08-19] MEDS: POTASSIUM EFFERVESENT TAB 25 MEQ PO SCH (11:01)
--- NOTE | 2024-08-19 14:01 | DVHPN2 ---
Progress Note Date Seen: Aug 19, 2024 Medical Necessity Reason Pt with a Central, PICC or Fol: No Subjective Review of Systems Pt resting in bed. In no acute distress. Patient reports: No new complaints, Feels better Changes from previous H/P or p: No Changes Objective vital signs Vital Sign Date Time Temp Pulse Resp B/P (MAP) Pulse Ox O2 Delivery O2 Flow Rate FiO2 08/19/24 09:18 166/85 08/19/24 09:17 71 08/19/24 08:00 16 Room Air* 0 21 08/19/24 05:00 98.1 94 98.1 Total Intake and Output 08/18/24 08/18/24 08/19/24 15:00 23:00 07:00 Intake Total 150 ml 1050 ml 1216.67 ml Output Total 1650 ml 1600 ml Balance 150 ml -600 ml -383.33 ml medications Current Medications Medications Dose Ordered Sig/Shai Route Start Time Stop Time Status Last Admin Dose Admin Nitroglycerin 0.4 mg Q5MINP PRN SL 08/16/24 22:00 Morphine Sulfate 2 mg Q30M PRN IV 08/16/24 22:00 Amlodipine Besylate 5 mg DAILY PO 08/18/24 10:00 08/19/24 09:18 5 MG Lactulose 30 ml DAILY PO 08/17/24 10:00 08/19/24 09:05 30 ML Polyethylene Glycol 17 gm DAILYPRN PRN PO 08/17/24 10:00 Ceftriaxone Sodium 50 ml @ 100 mls/hr DAILY@09 IV 08/18/24 09:00 08/19/24 09:12 100 MLS/HR Metronidazole 100 ml @ 100 mls/hr Q8HR IV 08/17/24 14:00 08/19/24 05:14 100 MLS/HR Hydralazine HCl 10 mg Q4HP PRN IV 08/18/24 00:45 Docusate Sodium 100 mg DAILYPRN PRN PO 08/18/24 15:15 Carvedilol 12.5 mg Q12HR PO 08/18/24 22:00 08/19/24 09:17 12.5 MG Hydrochlorothiazide 25 mg DAILY PO 08/19/24 10:00 08/19/24 09:18 25 MG Levothyroxine Sodium 100 mcg QAM PO 08/19/24 07:00 08/19/24 06:16 100 MCG Lorazepam 0.5 mg DAILYP PRN PO 08/18/24 20:00 08/18/24 21:53 0.5 MG Heparin Sodium/ Dextrose 250 ml @ 6 mls/hr Q24H IV 08/19/24 09:30 08/19/24 09:30 6 MLS/HR Potassium Bicarbonate 50 meq BID PO 08/19/24 10:15 08/19/24 11:01 50 MEQ Examination General: Appears stated age, in no acute distress Pulm: Clear to auscultation bilaterally CVS: RRR, normal S1 and S2 Ext: No edema noted Neuro: Alert laboratory and microbiology Laboratory Tests 08/19/24 06:20 Test 08/19/24 06:20 Range/Units Serum Glucose 85 74-106 mg/dL Labs and/or images reviewed: Labs reviewed by me Problem List/Assessment/Plan Problem List/Assessment/Plan Acute kidney injury superimposed Chronic Kidney Disease secondary hemodynamic mediated-ongoing continued improvement in eGFR 48, continued downtrend in creat 1.42, BUN 20 NSTEMI Dehydration Hypercalcemia rule out malignancy Hypokalemia due to potassium depletion-ongoing Hyponatremia due to dehydration-ongoing Anemia of chronic kidney disease Recommendations Continue serial chemistry panels Continue closely monitoring fluid and electrolytes Avoid nephrotoxic medications Muse catheter Strict I&Os KCL replacement as needed May proceed with MRI of abd/pelvis, no contraindications for gadolinium We will continue to follow Case discussed with Dr. Fred Sanchez Plan discussed with: Patient, Son, Other (Discussed case with Dr. Sanchez) Dietary Evaluation Review Comments: 1) Continue to monitor pt PO intake to meet at least 75% of meals 2) Continue current plan of care Expected Outcomes/Goals: F/U in 3-5 days ADWN RADER Aug 19, 2024 14:01
--- NOTE | 2024-08-19 14:33 | DVHPN2 ---
Progress Note - Dictate Date Seen: Aug 19, 2024 Medical Necessity Reason Pt with a Central, PICC or Fol: No Subjective Denies chest pain. Requesting solid food. vital signs Vital Sign Date Time Temp Pulse Resp B/P (MAP) Pulse Ox O2 Delivery O2 Flow Rate FiO2 08/19/24 10:17 63 141/88 08/19/24 09:00 97.4 16 94 97.4 08/19/24 08:00 Room Air* 0 21 Total Intake and Output 08/18/24 08/18/24 08/19/24 15:00 23:00 07:00 Intake Total 150 ml 1050 ml 1216.67 ml Output Total 1650 ml 1600 ml Balance 150 ml -600 ml -383.33 ml medications Current Medications Medications Dose Ordered Sig/Shai Route Start Time Stop Time Status Last Admin Dose Admin Nitroglycerin 0.4 mg Q5MINP PRN SL 08/16/24 22:00 Morphine Sulfate 2 mg Q30M PRN IV 08/16/24 22:00 Amlodipine Besylate 5 mg DAILY PO 08/18/24 10:00 08/19/24 09:18 5 MG Lactulose 30 ml DAILY PO 08/17/24 10:00 08/19/24 09:05 30 ML Polyethylene Glycol 17 gm DAILYPRN PRN PO 08/17/24 10:00 Ceftriaxone Sodium 50 ml @ 100 mls/hr DAILY@09 IV 08/18/24 09:00 08/19/24 09:12 100 MLS/HR Metronidazole 100 ml @ 100 mls/hr Q8HR IV 08/17/24 14:00 08/19/24 13:47 100 MLS/HR Hydralazine HCl 10 mg Q4HP PRN IV 08/18/24 00:45 Docusate Sodium 100 mg DAILYPRN PRN PO 08/18/24 15:15 Carvedilol 12.5 mg Q12HR PO 08/18/24 22:00 08/19/24 09:17 12.5 MG Hydrochlorothiazide 25 mg DAILY PO 08/19/24 10:00 08/19/24 09:18 25 MG Levothyroxine Sodium 100 mcg QAM PO 08/19/24 07:00 08/19/24 06:16 100 MCG Lorazepam 0.5 mg DAILYP PRN PO 08/18/24 20:00 08/18/24 21:53 0.5 MG Heparin Sodium/ Dextrose 250 ml @ 6 mls/hr Q24H IV 08/19/24 09:30 08/19/24 09:30 6 MLS/HR Potassium Bicarbonate 50 meq BID PO 08/19/24 10:15 08/19/24 11:01 50 MEQ objective General appearance: No acute distress Respiratory: Lungs clear to auscultation. No wheezing, crackles Cardiovascular: Regular rate and rhythm, no murmurs. No edema Abdomen: Soft, nondistended, nontender, bowel sounds present MSK: Normal range of motion. Neuro: Alert, no neurological deficits Psych: Appropriate mood and affect. laboratory and microbiology Laboratory Tests 08/19/24 06:20 Test 08/19/24 06:20 Range/Units Serum Glucose 85 74-106 mg/dL Problem List 1. NSTEMI 2. ROYAL 3. Hypercalcemia 4. 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 Constipation 6. Proctitis vs rectal mass Assessment/Plan -Cardiology consulted, Dr. Munguia. Continue heparin drip. No plan for left heart cath at this time. TTE shows normal LVEF. Cardiac clearance pending for flex sig. -Nephrology consulted for ROYAL. Continue IVF. Noted to be improving. -GI consulted for concern of rectal mass. -General surgery consulted for pancreatic mass and rectal mass. -Hematology oncology consulted for hypercalcemia with concern for underlying mass in tail of pancreas and rectum. Workup for multiple myeloma pending. Follow-up imaging with MRI of the abdomen and pelvis with contrast pending. -MiraLAX 17 g daily as needed for constipation -Continue Ceftriaxone and metronidazole due to concern for underlying enteritis. -Electrolytes repleted. -Muse placed for urinary retention -PT eval ordered -Full Code Dietary Evaluation Review Comments: 1) Continue to monitor pt PO intake to meet at least 75% of meals 2) Continue current plan of care Expected Outcomes/Goals: F/U in 3-5 days Plan discussed with: Patient, Spouse, Son YOHANA BAKER DO Aug 19, 2024 14:33
[2024-08-19 16:05] LABS: INR 1.07 (0.9-1.15); Partial Thromboplastin Time 44.2 SEC (24.5-34.5); Prothrombin Time 11.3 sec (9.3-11.8)
[2024-08-19] MEDS: LABETALOL HCL 20 MG/4 ML VL IV PRN (16:41)
[2024-08-19] MEDS: HYDROcodone-ACET 5/325MG TAB PO PRN (16:44)
--- NOTE | 2024-08-19 18:01 | DVHPN2 ---
Progress Note Date Seen: Aug 19, 2024 Resident Creating Document: ANH HAMM RESIDENT Medical Necessity Reason Pt with a Central, PICC or Fol: No Medical Necessity Reason This is an 88-year-old man with past medical history of CAD, s/p CABG, CHF, pacemaker (04/2024) was brought to the ED with a complaint of generalized weakness, fatigue, poor appetite and constipation for last two months. He also complained of rectal pain. Patient admits to weight loss of about 30 lb. He denied abdominal pain, nausea or vomiting, hematemesis or melena stool. Patient denied any chest pain or palpitation. In the ED, initial lab work includes WBC of 7.7, hgb 11.2 --> 9.5 hct 31.2, elevated BUN and creatinine, Ca: 17--->11, Chest x-ray: No acute cardiopulmonary disease. CT abdomen: Ascending aortic aneurysm measuring up to 45 mm. Gallbladder hydrops. GI consulted for further the evaluation. Subjective Review of Systems Constitutional: Denies fever, chills, feeling of malaise HEENT: Denies headache, ear pain, ear discharges, nasal discharge no throat pain Cardiovascular: Denies chest pain, palpitation,orthopnea, PND, pedal edema Respiratory: Denies Cough,sputum production, shortness of breath, hemoptysis, GI: Denies abdominal pain, nausea, vomiting, diarrhea,hematemesis, hematochezia; +Constipation, abdominal distention : Denies frequency, urgency, hematuria, Heme/onc: No easy bruising,bleeding disorders, epistasis, Psych: No evidence of depression, ramiro, suicidal ideation Objective vital signs Vital Sign Date Time Temp Pulse Resp B/P (MAP) Pulse Ox O2 Delivery O2 Flow Rate FiO2 08/19/24 17:00 98.0 78 16 173/99 (123) 93 98.0 08/19/24 08:00 Room Air* 0 21 Total Intake and Output 08/18/24 08/18/24 08/19/24 15:00 23:00 07:00 Intake Total 150 ml 1050 ml 1216.67 ml Output Total 1650 ml 1600 ml Balance 150 ml -600 ml -383.33 ml medications Current Medications Medications Dose Ordered Sig/Shai Route Start Time Stop Time Status Last Admin Dose Admin Nitroglycerin 0.4 mg Q5MINP PRN SL 08/16/24 22:00 Morphine Sulfate 2 mg Q30M PRN IV 08/16/24 22:00 Amlodipine Besylate 5 mg DAILY PO 08/18/24 10:00 08/19/24 09:18 5 MG Lactulose 30 ml DAILY PO 08/17/24 10:00 08/19/24 09:05 30 ML Polyethylene Glycol 17 gm DAILYPRN PRN PO 08/17/24 10:00 Ceftriaxone Sodium 50 ml @ 100 mls/hr DAILY@09 IV 08/18/24 09:00 08/19/24 09:12 100 MLS/HR Metronidazole 100 ml @ 100 mls/hr Q8HR IV 08/17/24 14:00 08/19/24 13:47 100 MLS/HR Hydralazine HCl 10 mg Q4HP PRN IV 08/18/24 00:45 Docusate Sodium 100 mg DAILYPRN PRN PO 08/18/24 15:15 Carvedilol 12.5 mg Q12HR PO 08/18/24 22:00 08/19/24 09:17 12.5 MG Hydrochlorothiazide 25 mg DAILY PO 08/19/24 10:00 08/19/24 09:18 25 MG Levothyroxine Sodium 100 mcg QAM PO 08/19/24 07:00 08/19/24 06:16 100 MCG Lorazepam 0.5 mg DAILYP PRN PO 08/18/24 20:00 08/18/24 21:53 0.5 MG Potassium Bicarbonate 50 meq BID PO 08/19/24 10:15 08/19/24 11:01 50 MEQ Labetalol HCl 10 mg Q2HPRN PRN IV 08/19/24 16:15 08/19/24 16:41 10 MG Acetaminophen/ Hydrocodone Bitart 1 tab Q4HPRN PRN PO 08/19/24 16:30 08/19/24 16:44 1 TAB Examination General--> not in any acute distress lying in bed comfortably with by the bedside HEENT- PEERLA, no acute nasal discharge Heart- S1-S2 audible, rate and rhythm regular, no murmur Lung- CTAB, no wheeze or rhonchi Abdomen-mild abdominal distension,abdominal tenderness, bowel sound+. Nondistended Musculoskeletal-no acute joint swelling or tenderness or redness Lower extremity- no leg edema Neurological- cranial nerves intact, no acute dysarthria or dysphagia Skin- no acute rash or purpura Psych: Appropriate mood and affect. laboratory and microbiology Laboratory Tests 08/19/24 06:20 Test 08/19/24 06:20 Range/Units Serum Glucose 85 74-106 mg/dL Problem List/Assessment/Plan Problem List/Assessment/Plan Constipation Possible proctitis Hypercalcemia Rectal pain Questionable mass tail of pancreas NSTEMI ROYAL Assessment/Plan Rectal examination did not reveal any mass. However ready to do flexible sigmoidoscopy/colonoscopy Cleared by micro paleontologist, (Dr. Munguia) for flexible sigmoidoscopy/colonoscopy early next week We will start bowel prep with Mag citrate Clear fluid diet No heparin drip for Colonoscopy Goal of care discussed for more than 18 minute: Full code Case and plan discussed with Dr. Mckeon Plan discussed with: Patient, Spouse Dietary Evaluation Review Comments: 1) Continue to monitor pt PO intake to meet at least 75% of meals 2) Continue current plan of care Expected Outcomes/Goals: F/U in 3-5 days ANH HAMM RESIDENT Aug 19, 2024 18:00
[2024-08-19] MEDS: MAGNESIUM CITRATE SOLUTION 300 ML BTL PO ONE (18:22)
--- NOTE | 2024-08-19 19:20 | DVHPN ---
DATE: 08/19/2024 SUBJECTIVE: An 88-year-old gentleman. I saw the patient with our nursing staff. The patient evaluated and examined. Family is also on the bedside. The patient came with abdominal discomfort. Constipation was noted and there is some suspicious colonic mass. The patient's troponin was high in the range of 901 and 1000 plus. He was put on the heparin drip for more than 48 hours. He has done very well. No chest pain, no short of breath. No history of deep vein thrombosis or pulmonary embolism. Now, EKG revealed pacemaker-type of rhythm. Pacemaker was put in 04/2024 of [employer]. Pacing rhythm noted. No acute changes on the EKG. ASSESSMENT: As follows: * Additional troponin, which is an incidental finding. * Pacemaker-type of rhythm. * Hypertension. * History of bypass surgery almost 12 years ago 3-vessel at [facility]. * He has history of the pacemaker, which needs interrogation and discussion done with the nursing staff to interrogate the device. PLAN: I talked to Dr. Patricia Mckeon and discussed with her. We are going to stop the heparin and the patient is cardiac clear. He still at low risk. The indication, risks, benefits have been explained to the patient. His GFR is low in the range of 40s. In view of absence of cardiac symptoms, he does not need any cardiac catheterization. There is no need to take the risk. He does not have any cardiac symptoms. He came with abdominal pain and constipation. Malou Munguia MD MP TID: [id number] RECEIPT: [id number]
[2024-08-19] MEDS: diphenhdrAMINE HCL 25 MG CAP PO ONE (22:16)
--- NOTE | 2024-08-19 23:49 | DVHPN2 ---
Progress Note - Dictate Date Seen: Aug 19, 2024 Medical Necessity Reason Pt with a Central, PICC or Fol: No Subjective Patient was seen and evaluated in follow up. I saw the patient with our nursing staff. The patient evaluated and examined. Family is also on the bedside. The patient came with abdominal discomfort. Constipation was noted and there is some suspicious colonic mass. The patient's troponin was high in the range of 901 and 1000 plus. He was put on the heparin drip for more than 48 hours. He has done very well. No chest pain, no short of breath. No history of deep vein thrombosis or pulmonary embolism. Now, EKG revealed pacemaker-type of rhythm. Pacemaker was put in 04/2024 of [employer]. Pacing rhythm noted. No acute changes on the EKG. vital signs Vital Sign Date Time Temp Pulse Resp B/P (MAP) Pulse Ox O2 Delivery O2 Flow Rate FiO2 08/19/24 09:18 166/85 08/19/24 09:17 71 08/19/24 08:00 16 Room Air* 0 21 08/19/24 05:00 98.1 94 98.1 Total Intake and Output 08/18/24 08/18/24 08/19/24 14:59 22:59 06:59 Intake Total 150 ml 1050 ml 1216.67 ml Output Total 1650 ml 1600 ml Balance 150 ml -600 ml -383.33 ml medications Current Medications Medications Dose Ordered Sig/Shai Route Start Time Stop Time Status Last Admin Dose Admin Nitroglycerin 0.4 mg Q5MINP PRN SL 08/16/24 22:00 Morphine Sulfate 2 mg Q30M PRN IV 08/16/24 22:00 Amlodipine Besylate 5 mg DAILY PO 08/18/24 10:00 08/19/24 09:18 5 MG Lactulose 30 ml DAILY PO 08/17/24 10:00 08/19/24 09:05 30 ML Polyethylene Glycol 17 gm DAILYPRN PRN PO 08/17/24 10:00 Ceftriaxone Sodium 50 ml @ 100 mls/hr DAILY@09 IV 08/18/24 09:00 08/19/24 09:12 100 MLS/HR Metronidazole 100 ml @ 100 mls/hr Q8HR IV 08/17/24 14:00 08/19/24 05:14 100 MLS/HR Hydralazine HCl 10 mg Q4HP PRN IV 08/18/24 00:45 Docusate Sodium 100 mg DAILYPRN PRN PO 08/18/24 15:15 Carvedilol 12.5 mg Q12HR PO 08/18/24 22:00 08/19/24 09:17 12.5 MG Hydrochlorothiazide 25 mg DAILY PO 08/19/24 10:00 08/19/24 09:18 25 MG Levothyroxine Sodium 100 mcg QAM PO 08/19/24 07:00 08/19/24 06:16 100 MCG Lorazepam 0.5 mg DAILYP PRN PO 08/18/24 20:00 08/18/24 21:53 0.5 MG Heparin Sodium/ Dextrose 250 ml @ 6 mls/hr Q24H IV 08/19/24 09:30 08/19/24 09:30 6 MLS/HR Potassium Bicarbonate 50 meq BID PO 08/19/24 10:15 08/19/24 11:01 50 MEQ objective GENERAL: Awake, alert, oriented. LUNGS: Clear. CARDIOVASCULAR: Heart sounds are good. ABDOMEN: Soft. laboratory and microbiology Laboratory Tests 08/19/24 06:20 Test 08/19/24 06:20 Range/Units Serum Glucose 85 74-106 mg/dL Problem List NSTEMI (non-ST elevated myocardial infarction). Acute kidney injury. Hypercalcemia. Rectal pain. Constipation. Possible proctitis. 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 Hypertension. History of bypass surgery almost 12 years ago 3-vessel at [facility]. History of the pacemaker. Assessment/Plan Continued all current supportive medical care. History of pacemaker, needs interrogation. Discussion done with the nursing staff to interrogate the device. I talked to Dr. Patricia Mckeon and discussed with her. We are going to stop the heparin and the patient is cardiac clear. He still at low risk. The indication, risks, benefits have been explained to the patient. His GFR is low in the range of 40s. In view of absence of cardiac symptoms, he does not need any cardiac catheterization. There is no need to take the risk. He does not have any cardiac symptoms. He came with abdominal pain and constipation. Morphine anf [place] for pain management. Amlodipine, Coreg. HCTZ. Additional plan as per the hospital course. Dietary Evaluation Review Comments: 1) Continue to monitor pt PO intake to meet at least 75% of meals 2) Continue current plan of care Expected Outcomes/Goals: F/U in 3-5 days Plan discussed with: Patient YENY VELEZ MD Aug 19, 2024 11:25
--- NOTE | 2024-08-20 01:46 | DVHINCON2 ---
DATE OF CONSULTATION: 08/19/2024 REFERRING PHYSICIAN: Dr. Meyer. CONSULTING PHYSICIAN: Dr. Sierra. REASON FOR CONSULTATION: Pancreatic mass and a possible rectal neoplasm. HISTORY OF PRESENT ILLNESS: The patient is an 88-year-old male admitted to the medical service on 08/16/2024 with chief complaint of obstruction "for 2 months" with associated 35-pound unintentional weight loss and shortness of breath. The patient denies ever having a colonoscopy. He admits to passing flatus. Denied fevers, chills, nausea, vomiting, hemoptysis, hematemesis, bilious emesis, chest pain, night sweats, melena or hematochezia. PAST MEDICAL HISTORY: Significant for CAD, hypertension, bradycardia and arthritis. PAST SURGICAL HISTORY: CABG, permanent pacemaker placement, appendectomy, tonsillectomy, left arm ORIF, repair of left Achilles tendon and umbilical hernia repair. MEDICATIONS: He is currently receiving therapeutic heparin, potassium, hydrochlorothiazide, levofloxacin, Coreg, Ativan, Colace, amlodipine, Rocephin, hydralazine, metronidazole, MiraLax, lactulose, morphine and nitroglycerin. ALLERGIES: No known drug allergies. SOCIAL HISTORY: Denies smoking cigarettes, drug use, marijuana use or vaping. Admits to occasionally consuming one glass of wine. REVIEW OF SYSTEMS: NEURO: Negative. PSYCHIATRIC: Negative. ENDOCRINE: Negative. ENT: Negative. CARDIOVASCULAR: Negative. GASTROINTESTINAL: As above. GENITOURINARY: Negative. ID: Negative. LYMPHATICS: Negative. MUSCULOSKELETAL: Negative. SKIN: Negative. PHYSICAL EXAMINATION: GENERAL: He is lying comfortably in bed. He is calm, pleasant and in no distress. VITAL SIGNS: He is afebrile with stable vital signs with exception of episodes of hypertension. NEUROLOGIC: Grossly intact, alert, awake, oriented x 3. HEAD, EYES, EARS, NOSE, AND THROAT: Normocephalic. Pupils equally round. Extraocular muscles intact. Trachea is midline. HEART: Normal heart rate. Normotensive with episodes of hypertension. LUNGS: Normal respiratory rate with borderline oxygen saturation. Receiving supplemental oxygen via nasal cannula. He is mildly dyspneic. ABDOMEN: Soft, nondistended, nontender. EXTREMITIES: No edema or tenderness. The patient exhibits large nodular deformities on his proximal to mid interphalangeal joints on both hands. RECTAL: Deferred. The patient stated that it was done by bowling ball finisher and reportedly normal. LABORATORY DATA: Labs reviewed. Remarkable for anemia with hemoglobin 9.5/hematocrit 27. Sodium 136, potassium 2.8, creatinine 1.2. Improving calcium 11. INR, PT normal with supratherapeutic PTT. Normal tumor markers to date. I have also reviewed the CT scan of the abdomen and pelvis. The patient has CAD, cardiac leads within the cardiac chambers. Osteoporotic appearance of the bones, distal pancreatic lesion, severe aortoiliac calcifications and rectal thickening with perirectal stranding. No evidence of obstruction. ASSESSMENT: An 88-year-old male with ____ significant unintentional weight loss. Pancreatic mass, rule out rectal neoplasm versus proctitis. The patient was admitted and diagnosed with [id number] myocardial infarction. PLANS AND RECOMMENDATIONS: I had a very lengthy discussion with the patient. I have recommended a flexible proctosigmoidoscopy to assess the rectum to rule out potential malignancy. With this regards to the pancreatic lesion, recommended a distal pancreatectomy. However, given the patient has had an acute coronary event, it would be recommended to be done as outpatient electively and if the patient meets safe criteria for surgical intervention. At this point, not safe. Continue therapeutic heparin. Recommend GI prophylaxis. Continue supportive care. Thank you for allowing me to participate in the care of your patient. I will follow him with you. MD AKASH Obando/TASNEEM/SONY TID: [id number] RECEIPT: [id number]
--- NOTE | 2024-08-20 01:59 | DVHINCON2 ---
DATE OF CONSULTATION: 08/19/2024 REQUESTING PHYSICIAN: Dr. Antonio Hollins. CONSULTING PHYSICIAN: Dr. Sierra. REASON FOR CONSULTATION: Hypercalcemia, pancreatic mass, rule out rectal neoplasm. HISTORY OF PRESENT ILLNESS: The patient is an 88-year-old male who was admitted to the medical service on NOTE: CANCELLED DICTATION MD AKASH Obando/TASNEEM/SONY TID: [id number] RECEIPT: [id number]
[2024-08-20 05:00] VITALS: BP 160/68; PULSE 87; RESP 17; TEMP 98.9; O2SAT 92
[2024-08-20 06:56] LABS: Basophils # (auto) 0 10 ^3/uL (0-0.2); Eosinophils # (auto) 0 10 ^3/uL (0-0.8); Lymphocytes # (auto) 0.2 10 ^3/uL (0.4-5.4)
[2024-08-20 06:58] LABS: Basophils % (auto) 0.5 % (0.0-2.0); Eosinophils % (auto) 0.7 % (0.0-7.0); Hematocrit 30.4 % (41.0-53.0); Hemoglobin 10.6 g/dL (13.5-17.5); Lymphocytes % (auto) 2.8 % (10.0-50.0); Mean Corpuscular Hemoglobin 34.9 pg (28.0-32.0); Mean Corpuscular Hgb Conc. 34.8 g/dL (32.0-36.0); Mean Corpuscular Volume 100.3 fL (80.0-100.0); Monocytes # (auto) 0.5 10 ^3/uL (0-1.3); Monocytes % (auto) 8.8 % (0.0-12.0); Neutrophils # (auto) 4.8 10 ^3/uL (1.6-8.6); Neutrophils % (auto) 87.2 % (37.0-80.0); Nucleated Red Blood Cells % 0.1 %; Platelet Count (auto) 216 10^3/uL (140-450); Red Blood Cells 3.04 10^6/uL (4.5-5.90); Red Cell Distribution Width 15.6 % (11.8-14.3); White Blood Cell 5.5 10^3/uL (4.4-10.8)
[2024-08-20 07:12] LABS: Alanine Aminotransferase 18 U/L (7-40); Albumin 3.4 g/dL (3.2-4.8); Alkaline Phosphatase 70 U/L (46-116); Anion Gap 6 (5-15); Aspartate Aminotransferase 31 U/L (13-40); BUN/Creatinine Ratio 13.4 (10.0-20.0); Blood Urea Nitrogen 26 mg/dL (9-23); Carbon Dioxide 29 mmol/L (20-31); Chloride 101 mmol/L (98-107); Glucose 114 mg/dL (74-106); Potassium 4.2 mmol/L (3.5-5.1); Sodium 136 mmol/L (136-145)
[2024-08-20 07:17] LABS: Calcium 13.8 mg/dL (8.7-10.4)
[2024-08-20 08:04] LABS: Bilirubin, Total 0.5 mg/dL (0.2-1.0)
[2024-08-20 09:18] VITALS: BP 152/86; PULSE 81; RESP 16; TEMP 98.4; O2SAT 91
--- NOTE | 2024-08-20 10:20 | DVHPN2 ---
Progress Note Date Seen: Aug 20, 2024 Medical Necessity Reason Pt with a Central, PICC or Fol: No Subjective Review of Systems Pt c/o ob back pain. Denies n/v. admits to passing flatus Objective vital signs Vital Sign Date Time Temp Pulse Resp B/P (MAP) Pulse Ox O2 Delivery O2 Flow Rate FiO2 08/20/24 09:18 98.4 81 16 152/86 (108) 91 98.4 08/20/24 07:30 Room Air* 0 21 Total Intake and Output 08/19/24 08/19/24 08/20/24 15:00 23:00 07:00 Intake Total 150 ml 900 ml 800 ml Output Total 2050 ml 1675 ml Balance 150 ml -1150 ml -875 ml medications Current Medications Medications Dose Ordered Sig/Shai Route Start Time Stop Time Status Last Admin Dose Admin Nitroglycerin 0.4 mg Q5MINP PRN SL 08/16/24 22:00 Morphine Sulfate 2 mg Q30M PRN IV 08/16/24 22:00 Amlodipine Besylate 5 mg DAILY PO 08/18/24 10:00 08/20/24 08:17 5 MG Lactulose 30 ml DAILY PO 08/17/24 10:00 08/19/24 09:05 30 ML Polyethylene Glycol 17 gm DAILYPRN PRN PO 08/17/24 10:00 Ceftriaxone Sodium 50 ml @ 100 mls/hr DAILY@09 IV 08/18/24 09:00 08/20/24 08:16 100 MLS/HR Metronidazole 100 ml @ 100 mls/hr Q8HR IV 08/17/24 14:00 08/20/24 05:13 100 MLS/HR Hydralazine HCl 10 mg Q4HP PRN IV 08/18/24 00:45 Docusate Sodium 100 mg DAILYPRN PRN PO 08/18/24 15:15 Carvedilol 12.5 mg Q12HR PO 08/18/24 22:00 08/20/24 08:16 12.5 MG Levothyroxine Sodium 100 mcg QAM PO 08/19/24 07:00 08/20/24 06:21 100 MCG Lorazepam 0.5 mg DAILYP PRN PO 08/18/24 20:00 08/18/24 21:53 0.5 MG Potassium Bicarbonate 50 meq BID PO 08/19/24 10:15 08/20/24 08:15 50 MEQ Labetalol HCl 10 mg Q2HPRN PRN IV 08/19/24 16:15 08/20/24 05:18 10 MG Acetaminophen/ Hydrocodone Bitart 1 tab Q4HPRN PRN PO 08/19/24 16:30 08/20/24 08:17 1 TAB Examination AFVSS. Abdomen soft, distended, tympanic to percussion and non tender laboratory and microbiology Laboratory Tests 08/20/24 05:54 Test 08/20/24 05:54 Range/Units Serum Glucose 114 H 74-106 mg/dL Problem List/Assessment/Plan Problem List/Assessment/Plan Recommend Flexible proctosigmoidoscopy. Continue supportive care. Plan discussed with: Patient Dietary Evaluation Review Comments: 1) Continue to monitor pt PO intake to meet at least 75% of meals 2) Continue current plan of care Expected Outcomes/Goals: F/U in 3-5 days KAREY JAMISON MD Aug 20, 2024 10:19
--- NOTE | 2024-08-20 11:03 | DVHPN2 ---
Progress Note - Dictate Date Seen: Aug 20, 2024 Medical Necessity Reason Pt with a Central, PICC or Fol: No Subjective Denies chest pain. Requesting solid food. vital signs Vital Sign Date Time Temp Pulse Resp B/P (MAP) Pulse Ox O2 Delivery O2 Flow Rate FiO2 08/20/24 09:18 98.4 81 16 152/86 (108) 91 98.4 08/20/24 07:30 Room Air* 0 21 Total Intake and Output 08/19/24 08/19/24 08/20/24 15:00 23:00 07:00 Intake Total 150 ml 900 ml 800 ml Output Total 2050 ml 1675 ml Balance 150 ml -1150 ml -875 ml medications Current Medications Medications Dose Ordered Sig/Shai Route Start Time Stop Time Status Last Admin Dose Admin Nitroglycerin 0.4 mg Q5MINP PRN SL 08/16/24 22:00 Morphine Sulfate 2 mg Q30M PRN IV 08/16/24 22:00 Amlodipine Besylate 5 mg DAILY PO 08/18/24 10:00 08/20/24 08:17 5 MG Lactulose 30 ml DAILY PO 08/17/24 10:00 08/19/24 09:05 30 ML Polyethylene Glycol 17 gm DAILYPRN PRN PO 08/17/24 10:00 Ceftriaxone Sodium 50 ml @ 100 mls/hr DAILY@09 IV 08/18/24 09:00 08/20/24 08:16 100 MLS/HR Metronidazole 100 ml @ 100 mls/hr Q8HR IV 08/17/24 14:00 08/20/24 05:13 100 MLS/HR Hydralazine HCl 10 mg Q4HP PRN IV 08/18/24 00:45 Docusate Sodium 100 mg DAILYPRN PRN PO 08/18/24 15:15 Carvedilol 12.5 mg Q12HR PO 08/18/24 22:00 08/20/24 08:16 12.5 MG Levothyroxine Sodium 100 mcg QAM PO 08/19/24 07:00 08/20/24 06:21 100 MCG Lorazepam 0.5 mg DAILYP PRN PO 08/18/24 20:00 08/18/24 21:53 0.5 MG Potassium Bicarbonate 50 meq BID PO 08/19/24 10:15 08/20/24 08:15 50 MEQ Labetalol HCl 10 mg Q2HPRN PRN IV 08/19/24 16:15 08/20/24 05:18 10 MG Acetaminophen/ Hydrocodone Bitart 1 tab Q4HPRN PRN PO 08/19/24 16:30 08/20/24 08:17 1 TAB objective General appearance: No acute distress Respiratory: Lungs clear to auscultation. No wheezing, crackles Cardiovascular: Regular rate and rhythm, no murmurs. No edema Abdomen: Soft, nondistended, nontender, bowel sounds present MSK: Normal range of motion. Neuro: Alert, no neurological deficits Psych: Appropriate mood and affect. laboratory and microbiology Laboratory Tests 08/20/24 05:54 Test 08/20/24 05:54 Range/Units Serum Glucose 114 H 74-106 mg/dL Problem List 1. NSTEMI 2. ROYAL 3. Hypercalcemia 4. 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 Constipation 6. Proctitis vs rectal mass Assessment/Plan -Cardiology consulted, Dr. Munguia. Discontinue heparin drip. No plan for left heart cath at this time. TTE shows normal LVEF. Cardiac clearance completed for flexsig/colonoscopy. Planned for Wednesday. Plan for Golytely prep. -Nephrology consulted for ROAYL. Continue IVF. Discontinue HCTZ. -General surgery consulted for pancreatic mass and rectal mass. -Hematology oncology consulted for hypercalcemia with concern for underlying mass in tail of pancreas and rectum. Workup for multiple myeloma pending. Follow-up imaging with MRI of the abdomen and pelvis with contrast pending. Pending pacemaker check prior to exam. -MiraLAX 17 g daily as needed for constipation -Continue Ceftriaxone and metronidazole due to concern for underlying enteritis. -Electrolytes repleted. -Muse placed for urinary retention -PT eval ordered -Full Code Dietary Evaluation Review Comments: 1) Continue to monitor pt PO intake to meet at least 75% of meals 2) Continue current plan of care Expected Outcomes/Goals: F/U in 3-5 days Plan discussed with: Patient YOHANA BAKER Aug 20, 2024 11:03
[2024-08-20 12:41] VITALS: BP 146/88; PULSE 65; RESP 16; TEMP 97.4; O2SAT 96
--- NOTE | 2024-08-20 13:36 | DVHPN2 ---
Progress Note - Dictate Date Seen: Aug 20, 2024 Medical Necessity Reason Pt with a Central, PICC or Fol: No Subjective Patient was seen and evaluated in follow up. Patient is complaining of back pain and constipation. Patient reports passing flatus. BUN 26, HCT 1.94, CA 13.8. vital signs Vital Sign Date Time Temp Pulse Resp B/P (MAP) Pulse Ox O2 Delivery O2 Flow Rate FiO2 08/20/24 12:41 97.4 65 16 146/88 (107) 96 97.4 08/20/24 07:30 Room Air* 0 21 Total Intake and Output 08/19/24 08/19/24 08/20/24 15:00 23:00 07:00 Intake Total 150 ml 900 ml 800 ml Output Total 2050 ml 1675 ml Balance 150 ml -1150 ml -875 ml medications Current Medications Medications Dose Ordered Sig/Shai Route Start Time Stop Time Status Last Admin Dose Admin Nitroglycerin 0.4 mg Q5MINP PRN SL 08/16/24 22:00 Morphine Sulfate 2 mg Q30M PRN IV 08/16/24 22:00 Amlodipine Besylate 5 mg DAILY PO 08/18/24 10:00 08/20/24 08:17 5 MG Lactulose 30 ml DAILY PO 08/17/24 10:00 08/19/24 09:05 30 ML Polyethylene Glycol 17 gm DAILYPRN PRN PO 08/17/24 10:00 Ceftriaxone Sodium 50 ml @ 100 mls/hr DAILY@09 IV 08/18/24 09:00 08/20/24 08:16 100 MLS/HR Metronidazole 100 ml @ 100 mls/hr Q8HR IV 08/17/24 14:00 08/20/24 05:13 100 MLS/HR Hydralazine HCl 10 mg Q4HP PRN IV 08/18/24 00:45 Docusate Sodium 100 mg DAILYPRN PRN PO 08/18/24 15:15 Carvedilol 12.5 mg Q12HR PO 08/18/24 22:00 08/20/24 08:16 12.5 MG Levothyroxine Sodium 100 mcg QAM PO 08/19/24 07:00 08/20/24 06:21 100 MCG Lorazepam 0.5 mg DAILYP PRN PO 08/18/24 20:00 08/18/24 21:53 0.5 MG Potassium Bicarbonate 50 meq BID PO 08/19/24 10:15 08/20/24 08:15 50 MEQ Labetalol HCl 10 mg Q2HPRN PRN IV 08/19/24 16:15 08/20/24 05:18 10 MG Acetaminophen/ Hydrocodone Bitart 1 tab Q4HPRN PRN PO 08/19/24 16:30 08/20/24 08:17 1 TAB objective GENERAL: Awake, alert, oriented. LUNGS: Clear. CARDIOVASCULAR: Heart sounds are good. ABDOMEN: Soft. laboratory and microbiology Laboratory Tests 08/20/24 05:54 Test 08/20/24 05:54 Range/Units Serum Glucose 114 H 74-106 mg/dL Problem List NSTEMI (non-ST elevated myocardial infarction). Acute kidney injury. Hypercalcemia. Rectal pain. Constipation. Possible proctitis. 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 Hypertension. History of bypass surgery almost 12 years ago 3-vessel at [facility]. History of the pacemaker. Assessment/Plan Continued all current supportive medical care. Cardiac cleared for procedure. Morphine and [place] for pain management. Amlodipine, Coreg. HCTZ. Additional plan as per the hospital course. Dietary Evaluation Review Comments: 1) Continue to monitor pt PO intake to meet at least 75% of meals 2) Continue current plan of care Expected Outcomes/Goals: F/U in 3-5 days Plan discussed with: Patient YENY VELEZ MD Aug 20, 2024 13:05
[2024-08-20] MEDS: GOLYTELY 4L KIT PO ONE (13:45)
--- NOTE | 2024-08-20 14:47 | DVHPN2 ---
Progress Note Date Seen: Aug 20, 2024 Medical Necessity Reason Pt with a Central, PICC or Fol: Yes Subjective Review of Systems Pt resting in bed. States he feels better. Patient reports: No new complaints Objective vital signs Vital Sign Date Time Temp Pulse Resp B/P (MAP) Pulse Ox O2 Delivery O2 Flow Rate FiO2 08/20/24 12:41 97.4 65 16 146/88 (107) 96 97.4 08/20/24 07:30 Room Air* 0 21 Total Intake and Output 08/19/24 08/19/24 08/20/24 15:00 23:00 07:00 Intake Total 150 ml 900 ml 800 ml Output Total 2050 ml 1675 ml Balance 150 ml -1150 ml -875 ml medications Current Medications Medications Dose Ordered Sig/Shai Route Start Time Stop Time Status Last Admin Dose Admin Nitroglycerin 0.4 mg Q5MINP PRN SL 08/16/24 22:00 Morphine Sulfate 2 mg Q30M PRN IV 08/16/24 22:00 Amlodipine Besylate 5 mg DAILY PO 08/18/24 10:00 08/20/24 08:17 5 MG Lactulose 30 ml DAILY PO 08/17/24 10:00 08/19/24 09:05 30 ML Polyethylene Glycol 17 gm DAILYPRN PRN PO 08/17/24 10:00 Ceftriaxone Sodium 50 ml @ 100 mls/hr DAILY@09 IV 08/18/24 09:00 08/20/24 08:16 100 MLS/HR Metronidazole 100 ml @ 100 mls/hr Q8HR IV 08/17/24 14:00 08/20/24 05:13 100 MLS/HR Hydralazine HCl 10 mg Q4HP PRN IV 08/18/24 00:45 Docusate Sodium 100 mg DAILYPRN PRN PO 08/18/24 15:15 Carvedilol 12.5 mg Q12HR PO 08/18/24 22:00 08/20/24 08:16 12.5 MG Levothyroxine Sodium 100 mcg QAM PO 08/19/24 07:00 08/20/24 06:21 100 MCG Lorazepam 0.5 mg DAILYP PRN PO 08/18/24 20:00 08/18/24 21:53 0.5 MG Potassium Bicarbonate 50 meq BID PO 08/19/24 10:15 08/20/24 08:15 50 MEQ Labetalol HCl 10 mg Q2HPRN PRN IV 08/19/24 16:15 08/20/24 05:18 10 MG Acetaminophen/ Hydrocodone Bitart 1 tab Q4HPRN PRN PO 08/19/24 16:30 08/20/24 08:17 1 TAB Examination General: Appears stated age, in no acute distress Pulm: Clear to auscultation bilaterally CVS: RRR, normal S1 and S2 Ext: No edema noted Neuro: Alert laboratory and microbiology Laboratory Tests 08/20/24 05:54 Test 08/20/24 05:54 Range/Units Serum Glucose 114 H 74-106 mg/dL Labs and/or images reviewed: Labs reviewed by me Problem List/Assessment/Plan Problem List/Assessment/Plan Acute kidney injury superimposed Chronic Kidney Disease secondary hemodynamic mediated-Slight worsening in creat 1.94, and decline in eGFR 33 NSTEMI Dehydration Hypercalcemia rule out malignancy Hypokalemia due to potassium depletion-ongoing Hyponatremia due to dehydration-ongoing Anemia of chronic kidney disease Recommendations Continue serial chemistry panels-Slight worsening in creat 1.94, and decline in eGFR 33 will continue to monitor closely Continue closely monitoring fluid and electrolytes Avoid nephrotoxic medications Muse catheter Strict I&Os KCL replacement as needed At this time will defer proceeding with MRI until renal function stabilizes We will continue to follow Case discussed with Dr. Fred Sanchez Plan discussed with: Patient, Spouse, Other (Dr Fred Sanchez) Dietary Evaluation Review Comments: 1) Continue to monitor pt PO intake to meet at least 75% of meals 2) Continue current plan of care Expected Outcomes/Goals: F/U in 3-5 days DAWN RADER Aug 20, 2024 14:47
--- NOTE | 2024-08-20 14:47 | DVH ---
CHEST RADIOGRAPH Indication:SHALLOW BREATHING WHILE SLEEPING Technique: Single frontal view of the chest was obtained Comparison: XY CHEST PORTABLE on DOS: 08/16/24 FINDINGS: Lines and Tubes: None. Left-sided approach dual lead pacemaker terminating within the right atrium a nd right ventricle. Lungs: No focal consolidation. Pleura: No effusion. No pneumothorax. Cardiomediastinal contours: Mild cardiomegaly with mild atherosclerotic calcification and uncoiling o f the aorta. Bones: No acute osseous abnormality. Midline sternotomy wires are noted. IMPRESSION: No acute cardiopulmonary disease.
[2024-08-20 17:00] VITALS: BP 149/85; PULSE 73; RESP 17; TEMP 97.8; O2SAT 81
--- NOTE | 2024-08-20 19:35 | DVHPN2 ---
Progress Note - Dictate Date Seen: Aug 20, 2024 Medical Necessity Reason Pt with a Central, PICC or Fol: Yes Subjective No new complaints Patient was not given Mag citrate last night because of nephrology recommendations Patient is currently on fluid restriction Patient has been cardiac cleared Patient would like to get a colonoscopy vital signs Vital Sign Date Time Temp Pulse Resp B/P (MAP) Pulse Ox O2 Delivery O2 Flow Rate FiO2 08/20/24 17:00 97.8 73 17 149/85 (106) 81 97.8 08/20/24 07:30 Room Air* 0 21 Total Intake and Output 08/19/24 08/19/24 08/20/24 15:00 23:00 07:00 Intake Total 150 ml 900 ml 800 ml Output Total 2050 ml 1675 ml Balance 150 ml -1150 ml -875 ml medications Current Medications Medications Dose Ordered Sig/Shai Route Start Time Stop Time Status Last Admin Dose Admin Nitroglycerin 0.4 mg Q5MINP PRN SL 08/16/24 22:00 Morphine Sulfate 2 mg Q30M PRN IV 08/16/24 22:00 Amlodipine Besylate 5 mg DAILY PO 08/18/24 10:00 08/20/24 08:17 5 MG Lactulose 30 ml DAILY PO 08/17/24 10:00 08/19/24 09:05 30 ML Polyethylene Glycol 17 gm DAILYPRN PRN PO 08/17/24 10:00 Ceftriaxone Sodium 50 ml @ 100 mls/hr DAILY@09 IV 08/18/24 09:00 08/20/24 08:16 100 MLS/HR Metronidazole 100 ml @ 100 mls/hr Q8HR IV 08/17/24 14:00 08/20/24 15:24 100 MLS/HR Hydralazine HCl 10 mg Q4HP PRN IV 08/18/24 00:45 Docusate Sodium 100 mg DAILYPRN PRN PO 08/18/24 15:15 Carvedilol 12.5 mg Q12HR PO 08/18/24 22:00 08/20/24 08:16 12.5 MG Levothyroxine Sodium 100 mcg QAM PO 08/19/24 07:00 08/20/24 06:21 100 MCG Lorazepam 0.5 mg DAILYP PRN PO 08/18/24 20:00 08/18/24 21:53 0.5 MG Potassium Bicarbonate 50 meq BID PO 08/19/24 10:15 08/20/24 08:15 50 MEQ Labetalol HCl 10 mg Q2HPRN PRN IV 08/19/24 16:15 08/20/24 05:18 10 MG Acetaminophen/ Hydrocodone Bitart 1 tab Q4HPRN PRN PO 08/19/24 16:30 08/20/24 08:17 1 TAB objective General: Appears stated age, in no acute distress Pulm: Clear to auscultation bilaterally CVS: RRR, normal S1 and S2 Ext: No edema noted Neuro: Alert laboratory and microbiology Laboratory Tests 08/20/24 05:54 Test 08/20/24 05:54 Range/Units Serum Glucose 114 H 74-106 mg/dL Problems(with codes): (1) Constipation (2) Non-STEMI (non-ST elevated myocardial infarction) (3) Acute kidney injury (4) Electrolyte imbalance (5) GI bleed Prognosis Plan Discussed with nephrology consult Dr. Daniel So to proceed with giving him GoLYTELY I will hold the Mag citrate Tentatively scheduled for colonoscopy on 08/21/2024 I will follow up patient with you closely Prognosis remains guarded Dietary Evaluation Review Comments: 1) Continue to monitor pt PO intake to meet at least 75% of meals 2) Continue current plan of care Expected Outcomes/Goals: F/U in 3-5 days Plan discussed with: Patient, Spouse, Other (Nurse and Dr Sanchez) GRACE KIM MD Aug 20, 2024 19:35
[2024-08-20 20:00] VITALS: PULSE 69; PULSE 74; RESP 18; O2SAT 100
[2024-08-20 21:00] VITALS: BP 181/98; PULSE 74; RESP 18; TEMP 97.4; O2SAT 99
[2024-08-20] MEDS: HYDROcodone-ACET 10/325MG TAB PO PRN (22:38)
[2024-08-21] VITALS (9 sets, daily range): BP systolic 105–175; BP diastolic 51–98; PULSE 61–76; RESP 18–20; TEMP 97.3–98.2; O2SAT 96–100
[2024-08-21] MEDS: GOLYTELY 4L KIT PO ONE (05:55)
[2024-08-21 07:05] LABS: Basophils # (auto) 0 10 ^3/uL (0-0.2); Eosinophils # (auto) 0 10 ^3/uL (0-0.8); Eosinophils % (auto) 1.1 % (0.0-7.0); Hemoglobin 10.8 g/dL (13.5-17.5); Lymphocytes # (auto) 0.3 10 ^3/uL (0.4-5.4); Monocytes # (auto) 0.5 10 ^3/uL (0-1.3); Neutrophils # (auto) 3.6 10 ^3/uL (1.6-8.6)
[2024-08-21 07:08] LABS: Basophils % (auto) 0.4 % (0.0-2.0); Lymphocytes % (auto) 6.6 % (10.0-50.0); Mean Corpuscular Hemoglobin 35.1 pg (28.0-32.0); Mean Corpuscular Hgb Conc. 34.7 g/dL (32.0-36.0); Mean Corpuscular Volume 101.1 fL (80.0-100.0); Monocytes % (auto) 11.2 % (0.0-12.0); Neutrophils % (auto) 80.7 % (37.0-80.0); Nucleated Red Blood Cells % 0.1 %; Platelet Count (auto) 202 10^3/uL (140-450); Red Blood Cells 3.07 10^6/uL (4.5-5.90); Red Cell Distribution Width 15.4 % (11.8-14.3); White Blood Cell 4.5 10^3/uL (4.4-10.8)
[2024-08-21 07:14] LABS: Alanine Aminotransferase 35 U/L (7-40); Albumin 3.4 g/dL (3.2-4.8); Alkaline Phosphatase 72 U/L (46-116); Anion Gap 6 (5-15); Aspartate Aminotransferase 66 U/L (13-40); BUN/Creatinine Ratio 13.9 (10.0-20.0); Bilirubin, Total 0.4 mg/dL (0.2-1.0); Blood Urea Nitrogen 29 mg/dL (9-23); Calcium 12.6 mg/dL (8.7-10.4); Carbon Dioxide 33 mmol/L (20-31); Chloride 99 mmol/L (98-107); Glucose 95 mg/dL (74-106); Potassium 3.7 mmol/L (3.5-5.1); Sodium 138 mmol/L (136-145); Total Protein 7.2 g/dL (5.7-8.2)
--- NOTE | 2024-08-21 07:53 | DVHPN2 ---
Progress Note Date Seen: Aug 21, 2024 Has the PT tested + for MRSA If YES, has PT been informed?: No Medical Necessity Reason Pt with a Central, PICC or Fol: Yes Subjective Review of Systems Pt feels well. No complaints. Admits to having several BM after initiating Golytely. Objective vital signs Vital Sign Date Time Temp Pulse Resp B/P (MAP) Pulse Ox O2 Delivery O2 Flow Rate FiO2 08/21/24 05:00 97.4 64 18 130/68 (88) 100 97.4 08/20/24 20:00 Nasal Cannula* 3 32 Total Intake and Output 08/20/24 08/20/24 08/21/24 15:00 23:00 07:00 Intake Total 50 ml 1575 ml 480 ml Output Total 1050 ml 1400 ml Balance 50 ml 525 ml -920 ml medications Current Medications Medications Dose Ordered Sig/Shai Route Start Time Stop Time Status Last Admin Dose Admin Nitroglycerin 0.4 mg Q5MINP PRN SL 08/16/24 22:00 Morphine Sulfate 2 mg Q30M PRN IV 08/16/24 22:00 Amlodipine Besylate 5 mg DAILY PO 08/18/24 10:00 08/20/24 08:17 5 MG Lactulose 30 ml DAILY PO 08/17/24 10:00 08/19/24 09:05 30 ML Polyethylene Glycol 17 gm DAILYPRN PRN PO 08/17/24 10:00 Ceftriaxone Sodium 50 ml @ 100 mls/hr DAILY@09 IV 08/18/24 09:00 08/20/24 08:16 100 MLS/HR Metronidazole 100 ml @ 100 mls/hr Q8HR IV 08/17/24 14:00 08/21/24 05:55 100 MLS/HR Hydralazine HCl 10 mg Q4HP PRN IV 08/18/24 00:45 Docusate Sodium 100 mg DAILYPRN PRN PO 08/18/24 15:15 Carvedilol 12.5 mg Q12HR PO 08/18/24 22:00 08/20/24 22:36 12.5 MG Levothyroxine Sodium 100 mcg QAM PO 08/19/24 07:00 08/21/24 06:03 100 MCG Lorazepam 0.5 mg DAILYP PRN PO 08/18/24 20:00 08/20/24 22:34 0.5 MG Potassium Bicarbonate 50 meq BID PO 08/19/24 10:15 08/20/24 22:34 50 MEQ Labetalol HCl 10 mg Q2HPRN PRN IV 08/19/24 16:15 08/20/24 05:18 10 MG Acetaminophen/ Hydrocodone Bitart 1 tab Q4HPRN PRN PO 08/19/24 16:30 08/20/24 08:17 1 TAB Acetaminophen/ Hydrocodone Bitart 1 tab Q6HP PRN PO 08/20/24 21:15 08/20/24 22:38 1 TAB Hydromorphone HCl 0.5 mg Q3HPRN PRN IV 08/20/24 21:15 UNV Examination AFVSS. Abdomen soft, ND and NT. laboratory and microbiology Laboratory Tests 08/21/24 06:20 Test 08/21/24 06:20 Range/Units Serum Glucose 95 74-106 mg/dL Labs and/or images reviewed: Labs reviewed by me Problem List/Assessment/Plan Problems(with codes): (1) Hypercalcemia (2) Constipation Problem List/Assessment/Plan Pending flexible proctosigmoidoscopy. Continue supportive care. Plan discussed with: Patient Dietary Evaluation Review Comments: 1) Continue to monitor pt PO intake to meet at least 75% of meals 2) Continue current plan of care Expected Outcomes/Goals: F/U in 3-5 days KAREY JAMISON MD Aug 21, 2024 07:53
--- NOTE | 2024-08-21 09:21 | DVHPN2 ---
Progress Note - Dictate Date Seen: Aug 21, 2024 Has the PT tested + for MRSA If YES, has PT been informed?: No Medical Necessity Reason Pt with a Central, PICC or Fol: Yes Subjective Patient was seen and evaluated in follow up. Patient reported feeling better today. Patient admits to having several BM after initiating Golytely. CO2 33, BUN 29, Customer Service Voice 2.09. HGB 10.8, HCT 31. Echocardiogram shows [id number] concentric left ventricular hypertrophy. Normal left ventricular systolic function estimated ejection fraction of 65%. There is a grade 1 diastolic dysfunction. There is mild tricuspid valve regurgitation. vital signs Vital Sign Date Time Temp Pulse Resp B/P (MAP) Pulse Ox O2 Delivery O2 Flow Rate FiO2 08/21/24 08:00 Room Air* 0 21 08/21/24 05:00 97.4 64 18 130/68 (88) 100 97.4 Total Intake and Output 08/20/24 08/20/24 08/21/24 15:00 23:00 07:00 Intake Total 50 ml 1575 ml 480 ml Output Total 1050 ml 1400 ml Balance 50 ml 525 ml -920 ml medications Current Medications Medications Dose Ordered Sig/Shai Route Start Time Stop Time Status Last Admin Dose Admin Nitroglycerin 0.4 mg Q5MINP PRN SL 08/16/24 22:00 Morphine Sulfate 2 mg Q30M PRN IV 08/16/24 22:00 Amlodipine Besylate 5 mg DAILY PO 08/18/24 10:00 08/20/24 08:17 5 MG Lactulose 30 ml DAILY PO 08/17/24 10:00 08/19/24 09:05 30 ML Polyethylene Glycol 17 gm DAILYPRN PRN PO 08/17/24 10:00 Ceftriaxone Sodium 50 ml @ 100 mls/hr DAILY@09 IV 08/18/24 09:00 08/20/24 08:16 100 MLS/HR Metronidazole 100 ml @ 100 mls/hr Q8HR IV 08/17/24 14:00 08/21/24 05:55 100 MLS/HR Hydralazine HCl 10 mg Q4HP PRN IV 08/18/24 00:45 Docusate Sodium 100 mg DAILYPRN PRN PO 08/18/24 15:15 Carvedilol 12.5 mg Q12HR PO 08/18/24 22:00 08/20/24 22:36 12.5 MG Levothyroxine Sodium 100 mcg QAM PO 08/19/24 07:00 08/21/24 06:03 100 MCG Lorazepam 0.5 mg DAILYP PRN PO 08/18/24 20:00 08/20/24 22:34 0.5 MG Potassium Bicarbonate 50 meq BID PO 08/19/24 10:15 08/20/24 22:34 50 MEQ Labetalol HCl 10 mg Q2HPRN PRN IV 08/19/24 16:15 08/20/24 05:18 10 MG Acetaminophen/ Hydrocodone Bitart 1 tab Q4HPRN PRN PO 08/19/24 16:30 08/20/24 08:17 1 TAB Hydromorphone HCl 0.5 mg Q3HPRN PRN IV 08/20/24 21:15 objective GENERAL: Awake, alert, oriented. LUNGS: Clear. CARDIOVASCULAR: Heart sounds are good. ABDOMEN: Soft. laboratory and microbiology Laboratory Tests 08/21/24 06:20 Test 08/21/24 06:20 Range/Units Serum Glucose 95 74-106 mg/dL Problem List NSTEMI (non-ST elevated myocardial infarction). Acute kidney injury. Hypercalcemia. Rectal pain. Constipation. Possible proctitis. 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 Hypertension. 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 History of the pacemaker. Assessment/Plan Continued all current supportive medical care. Cardiac cleared for procedure. Morphine and [place] for pain management. Amlodipine, Coreg. HCTZ. IV antibiotics as ordered. Additional plan as per the hospital course. Dietary Evaluation Review Comments: 1) Continue to monitor pt PO intake to meet at least 75% of meals 2) Continue current plan of care Expected Outcomes/Goals: F/U in 3-5 days Plan discussed with: Patient YENY VELEZ MD Aug 21, 2024 09:21
[2024-08-21] MEDS ORDERED: LACTATED RINGER'S 1,000 ML IV SCH (09:45)
[2024-08-21] MEDS: SODIUM CHLORIDE 0.9% 1,000 ML IV SCH (10:27)
[2024-08-21] MEDS: MAGNESIUM CITRATE SOLUTION 300 ML BTL PO ONE (10:33)
--- NOTE | 2024-08-21 11:54 | DVHPN2 ---
Progress Note - Dictate Date Seen: Aug 21, 2024 Has the PT tested + for MRSA If YES, has PT been informed?: No Medical Necessity Reason Pt with a Central, PICC or Fol: Yes Subjective Notes he has been drinking his Golytely. vital signs Vital Sign Date Time Temp Pulse Resp B/P (MAP) Pulse Ox O2 Delivery O2 Flow Rate FiO2 08/21/24 10:22 74 175/98 08/21/24 09:00 97.5 20 98 97.5 08/21/24 08:00 Room Air* 0 21 Total Intake and Output 08/20/24 08/20/24 08/21/24 15:00 23:00 07:00 Intake Total 50 ml 1575 ml 480 ml Output Total 1050 ml 1400 ml Balance 50 ml 525 ml -920 ml medications Current Medications Medications Dose Ordered Sig/Shai Route Start Time Stop Time Status Last Admin Dose Admin Nitroglycerin 0.4 mg Q5MINP PRN SL 08/16/24 22:00 Morphine Sulfate 2 mg Q30M PRN IV 08/16/24 22:00 Amlodipine Besylate 5 mg DAILY PO 08/18/24 10:00 08/21/24 10:22 5 MG Lactulose 30 ml DAILY PO 08/17/24 10:00 08/19/24 09:05 30 ML Polyethylene Glycol 17 gm DAILYPRN PRN PO 08/17/24 10:00 Ceftriaxone Sodium 50 ml @ 100 mls/hr DAILY@09 IV 08/18/24 09:00 08/21/24 10:21 100 MLS/HR Metronidazole 100 ml @ 100 mls/hr Q8HR IV 08/17/24 14:00 08/21/24 05:55 100 MLS/HR Hydralazine HCl 10 mg Q4HP PRN IV 08/18/24 00:45 Docusate Sodium 100 mg DAILYPRN PRN PO 08/18/24 15:15 Carvedilol 12.5 mg Q12HR PO 08/18/24 22:00 08/21/24 10:22 12.5 MG Levothyroxine Sodium 100 mcg QAM PO 08/19/24 07:00 08/21/24 06:03 100 MCG Lorazepam 0.5 mg DAILYP PRN PO 08/18/24 20:00 08/20/24 22:34 0.5 MG Potassium Bicarbonate 50 meq BID PO 08/19/24 10:15 08/21/24 10:21 50 MEQ Labetalol HCl 10 mg Q2HPRN PRN IV 08/19/24 16:15 08/20/24 05:18 10 MG Acetaminophen/ Hydrocodone Bitart 1 tab Q4HPRN PRN PO 08/19/24 16:30 08/21/24 10:22 1 TAB Hydromorphone HCl 0.5 mg Q3HPRN PRN IV 08/20/24 21:15 Sodium Chloride 1,000 ml @ 75 mls/hr [id number] IV 08/21/24 10:30 08/21/24 10:27 75 MLS/HR objective General appearance: No acute distress Respiratory: Lungs clear to auscultation. No wheezing, crackles Cardiovascular: Regular rate and rhythm, no murmurs. No edema Abdomen: Soft, nondistended, nontender, bowel sounds present MSK: Normal range of motion. Neuro: Alert, no neurological deficits Psych: Appropriate mood and affect. laboratory and microbiology Laboratory Tests 08/21/24 06:20 Test 08/21/24 06:20 Range/Units Serum Glucose 95 74-106 mg/dL Problem List 1. NSTEMI 2. ROYAL 3. Hypercalcemia 4. 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 Constipation 6. Proctitis vs rectal mass Assessment/Plan -Cardiology consulted, Dr. Munguia. Discontinue heparin drip. No plan for left heart cath at this time. TTE shows normal LVEF. Cardiac clearance completed for flexsig/colonoscopy. Planned for Wednesday. Plan for Golytely prep. -Nephrology consulted for ROYAL. Continue IVF. Discontinue HCTZ. -General surgery consulted for pancreatic mass and rectal mass. -Hematology oncology consulted for hypercalcemia with concern for underlying mass in tail of pancreas and rectum. Workup for multiple myeloma pending. Plan for outpatient PET scan given concern for underlying malignancy. -MiraLAX 17 g daily as needed for constipation -Continue Ceftriaxone and metronidazole due to concern for underlying enteritis. -Electrolytes repleted. -Muse placed for urinary retention -PT eval ordered - consulted for SNF placement for PT. -Full Code Dietary Evaluation Review Comments: 1) Continue to monitor pt PO intake to meet at least 75% of meals 2) Continue current plan of care Expected Outcomes/Goals: F/U in 3-5 days Plan discussed with: Patient YOHANA BAKER Aug 21, 2024 11:54
[2024-08-21] MEDS ORDERED: LIDOCAINE 1% (LOCAL ANESTH.) PF 5ml SDV ONE (14:01)
[2024-08-21] MEDS ORDERED: PROPOFOL 10 MG/ML 20 ML IV ONE (14:01)
--- NOTE | 2024-08-21 14:03 | DVHOP2 ---
Operative Report DATE OF OPERATION: 08/21/24 PROCEDURE: Colonoscopy with biopsy. PREOPERATIVE INDICATION: The patient is a 88 -year-old male undergoing colonoscopy for evaluation of masslike sensation in the rectum and difficulty evacuating his bowel movements POSTOPERATIVE DIAGNOSES: 1. Patient had a circumferential area of multiple ulceration in the rectosigmoid with a differential diagnosis of stercoral ulceration from constipation versus a solitary rectal ulcer syndrome. Biopsies were obtained 2. There was a 2 mm benign-appearing hepatic flexure polyp that was seen and removed by cold biopsy forceps 3. There was a 2 mm benign-appearing transverse colon polyp that was seen and removed by cold biopsy forceps 4. [id number] sigmoid diverticular disease 5. 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 Trace to 1+ internal hemorrhoids otherwise normal examination up to the cecum and terminal ileum PROCEDURE PERFORMED BY: Grace Mckeon M.D. SCOPE: Olympus videocolonoscope. ASA CLASS: 3. PREOPERATIVE MEDICATIONS: Koby Berumen PROCEDURE IN DETAIL: After obtaining an informed consent, the patient was placed on left lateral decubitus position. He was then sedated with the above medications. A rectal examination was performed that was normal. The colonoscope was then passed through the anus into the rectosigmoid and through the descending, transverse, and ascending colon up to the cecum with visualization of the appendiceal orifice, base of the cecum and the ileocecal valve. The colonoscope was then withdrawn. The distal 3-5 cm of the terminal ileum were normal. In the hepatic flexure there was a 2 mm polyp that was seen and removed by cold biopsy forceps In the mid transverse colon there was a 3 mm benign-appearing polyp that was seen and removed with cold biopsy forceps Patient had mild tortuosity and redundancy of the colon especially involving the mid transverse colon area Patient had moderate sigmoid diverticular disease with sigmoid muscular hypertrophy. There was an extensive area of ulceration in the rectosigmoid at about 5 cm above the anal verge. There were multiple ulcers in a circumferential fashion with one larger ulcer and there were surrounding proctitis. Multiple biopsies were obtained. This appeared to be likely a stercoral ulceration from obstipation. The differential diagnosis could be a solitary rectal ulcer syndrome. On retroflexion patient had trace to 1+ internal hemorrhoids The patient tolerated the procedure well without difficulty. WITHDRAWAL TIME: 10 minutes QUALITY OF THE PREP: [place] Bowel Prep score: 9. COMPLICATIONS : None SPECIMENS: Hepatic flexure polyp Transverse colon polyp Rectal biopsies DISPOSITION: Transfer back to the floor Stable PLAN: 1. Repeat colonoscopy based on biopsy result likely in 3-5 years 2. Resume GI soft diet advance as tolerated 3. Increase fluid and fiber intake and take stool softeners daily 4. Avoid laxatives that contain [place] 5. Instead patient can use lactulose or MiraLax even on a daily basis if required 6. Outpatient follow up with me in 4-6 weeks to review results and discuss further management GRACE MCKEON MD Aug 21, 2024 14:03
[2024-08-21] MEDS ORDERED: ePHEDrine SULFATE 50 MG/ML AMP ONE (14:29)
[2024-08-21] MEDS ORDERED: ZOLPIDEM TARTRATE 5 MG TAB PO PRN (17:15)
[2024-08-21] MEDS: Ensure HIGH Protein Chocolate 8oz Bottle PO SCH (18:03)
--- NOTE | 2024-08-21 19:25 | DVHPN2 ---
Progress Note Date Seen: Aug 21, 2024 Has the PT tested + for MRSA If YES, has PT been informed?: No Medical Necessity Reason Pt with a Central, PICC or Fol: Yes Subjective Patient reports: No new complaints (family bedside ) Review of Systems: HEENT:Normal, CVS:Normal, RESPIRATORY:Normal, GI:Normal, :Normal, MSK:Normal, NEURO:Normal Objective vital signs Vital Sign Date Time Temp Pulse Resp B/P (MAP) Pulse Ox O2 Delivery O2 Flow Rate FiO2 08/21/24 17:00 98.2 61 20 143/72 (95) 97 98.2 08/21/24 13:50 Nasal Cannula 2.0 100 Total Intake and Output 08/20/24 08/20/24 08/21/24 15:00 23:00 07:00 Intake Total 50 ml 1575 ml 480 ml Output Total 1050 ml 1400 ml Balance 50 ml 525 ml -920 ml medications Current Medications Medications Dose Ordered Sig/Shai Route Start Time Stop Time Status Last Admin Dose Admin Nitroglycerin 0.4 mg Q5MINP PRN SL 08/16/24 22:00 Morphine Sulfate 2 mg Q30M PRN IV 08/16/24 22:00 Amlodipine Besylate 5 mg DAILY PO 08/18/24 10:00 08/21/24 10:22 5 MG Polyethylene Glycol 17 gm DAILYPRN PRN PO 08/17/24 10:00 Ceftriaxone Sodium 50 ml @ 100 mls/hr DAILY@09 IV 08/18/24 09:00 08/21/24 10:21 100 MLS/HR Metronidazole 100 ml @ 100 mls/hr Q8HR IV 08/17/24 14:00 08/21/24 14:57 100 MLS/HR Hydralazine HCl 10 mg Q4HP PRN IV 08/18/24 00:45 Carvedilol 12.5 mg Q12HR PO 08/18/24 22:00 08/21/24 10:22 12.5 MG Levothyroxine Sodium 100 mcg QAM PO 08/19/24 07:00 08/21/24 06:03 100 MCG Lorazepam 0.5 mg DAILYP PRN PO 08/18/24 20:00 08/20/24 22:34 0.5 MG Potassium Bicarbonate 50 meq BID PO 08/19/24 10:15 08/21/24 10:21 50 MEQ Labetalol HCl 10 mg Q2HPRN PRN IV 08/19/24 16:15 08/20/24 05:18 10 MG Acetaminophen/ Hydrocodone Bitart 1 tab Q4HPRN PRN PO 08/19/24 16:30 08/21/24 10:22 1 TAB Hydromorphone HCl 0.5 mg Q3HPRN PRN IV 08/20/24 21:15 Sodium Chloride 1,000 ml @ 75 mls/hr [id number] IV 08/21/24 10:30 08/21/24 10:27 75 MLS/HR Docusate Sodium 100 mg BID PO 08/21/24 22:00 Lactulose 15 ml DAILY PO 08/22/24 10:00 Mirtazapine 30 mg HS PO 08/21/24 22:00 Enteral Nutritional Formula 240 ml BIDWM PO 08/21/24 18:00 08/21/24 18:03 240 ML laboratory and microbiology Laboratory Tests 08/21/24 06:20 Test 08/21/24 06:20 Range/Units Serum Glucose 95 74-106 mg/dL Problem List/Assessment/Plan Problem List/Assessment/Plan Acute kidney injury superimposed Chronic Kidney Disease secondary hemodynamic mediated- NSTEMI Hypercalcemia rule out malignancy Hypokalemia due to potassium depletion-ongoing Hyponatremia due to dehydration-ongoing Anemia of chronic kidney disease Recommendations NS ivf as ordered colonoscopy today will consider bispgosphonate once gfr stable Plan discussed with: Patient, Spouse My Orders My Orders Orders - LEROY SHEETS MD Procedure Category Date Status Time Sodium Chloride 0.9% PHA 08/21/24 In Process 10:30 Dietary Evaluation Review Comments: 1) Continue to monitor pt PO intake to meet at least 75% of meals 2) Continue current plan of care Expected Outcomes/Goals: F/U in 3-5 days LEROY SHEETS MD Aug 21, 2024 19:25
[2024-08-21] MEDS: DOCUSATE SOD 100 MG CAP PO SCH (22:00)
[2024-08-21] MEDS: MIRTAZAPINE 30 MG TAB PO SCH (22:35)
[2024-08-22] VITALS (8 sets, daily range): BP systolic 122–167; BP diastolic 70–99; PULSE 67–80; RESP 17–19; TEMP 97.6–98; O2SAT 97–100
[2024-08-22 06:01] LABS: Basophils # (auto) 0 10 ^3/uL (0-0.2); Basophils % (auto) 0.4 % (0.0-2.0); Eosinophils # (auto) 0.1 10 ^3/uL (0-0.8); Eosinophils % (auto) 2.7 % (0.0-7.0); Hematocrit 30.2 % (41.0-53.0); Hemoglobin 10.2 g/dL (13.5-17.5); Lymphocytes # (auto) 0.4 10 ^3/uL (0.4-5.4); Lymphocytes % (auto) 8.5 % (10.0-50.0); Mean Corpuscular Hemoglobin 34.3 pg (28.0-32.0); Mean Corpuscular Hgb Conc. 33.7 g/dL (32.0-36.0); Mean Corpuscular Volume 101.7 fL (80.0-100.0); Monocytes # (auto) 0.6 10 ^3/uL (0-1.3); Monocytes % (auto) 13.3 % (0.0-12.0); Neutrophils # (auto) 3.2 10 ^3/uL (1.6-8.6); Neutrophils % (auto) 75.1 % (37.0-80.0); Nucleated Red Blood Cells % 0.1 %; Platelet Count (auto) 191 10^3/uL (140-450); Red Blood Cells 2.97 10^6/uL (4.5-5.90); Red Cell Distribution Width 15.4 % (11.8-14.3); White Blood Cell 4.3 10^3/uL (4.4-10.8)
[2024-08-22 06:17] LABS: Alanine Aminotransferase 41 U/L (7-40); Albumin 3.2 g/dL (3.2-4.8); Alkaline Phosphatase 66 U/L (46-116); Anion Gap 8 (5-15); Aspartate Aminotransferase 67 U/L (13-40); Bilirubin, Total 0.4 mg/dL (0.2-1.0); Blood Urea Nitrogen 26 mg/dL (9-23); Calcium 11.1 mg/dL (8.7-10.4); Carbon Dioxide 29 mmol/L (20-31); Chloride 101 mmol/L (98-107); Glucose 84 mg/dL (74-106); Sodium 138 mmol/L (136-145); Total Protein 6.6 g/dL (5.7-8.2)
[2024-08-22] MEDS: hydrALAZINE HCL 20 MG/ML VL IV PRN (06:28)
[2024-08-22 08:07] LABS: Albumin 2.8 g/dL (2.9-4.4); Alpha-1-Globulin 0.4 g/dL (0.0-0.4); Alpha-2-Globulin 0.8 g/dL (0.4-1.0); Globulin Total 4.1 g/dL (2.2-3.9); Protein Total Serum 6.9 g/dL (6.0-8.5)
--- NOTE | 2024-08-22 08:55 | DVHPN2 ---
Progress Note - Dictate Date Seen: Aug 22, 2024 Has the PT tested + for MRSA If YES, has PT been informed?: Yes Medical Necessity Reason Pt with a Central, PICC or Fol: Yes Subjective No new complaints voiced. No headaches nausea vomiting. No abdominal pains vital signs Vital Sign Date Time Temp Pulse Resp B/P (MAP) Pulse Ox O2 Delivery O2 Flow Rate FiO2 08/22/24 08:30 97.9 75 18 123/70 (87) 97 97.9 08/21/24 20:00 Nasal Cannula* 3 32 Total Intake and Output 08/21/24 08/21/24 08/22/24 15:00 23:00 07:00 Intake Total 60 ml 970 ml 280 ml Output Total 1375 ml 1400 ml Balance 60 ml -405 ml -1120 ml medications Current Medications Medications Dose Ordered Sig/Shai Route Start Time Stop Time Status Last Admin Dose Admin Nitroglycerin 0.4 mg Q5MINP PRN SL 08/16/24 22:00 Morphine Sulfate 2 mg Q30M PRN IV 08/16/24 22:00 Amlodipine Besylate 5 mg DAILY PO 08/18/24 10:00 08/21/24 10:22 5 MG Polyethylene Glycol 17 gm DAILYPRN PRN PO 08/17/24 10:00 Ceftriaxone Sodium 50 ml @ 100 mls/hr DAILY@09 IV 08/18/24 09:00 08/21/24 10:21 100 MLS/HR Metronidazole 100 ml @ 100 mls/hr Q8HR IV 08/17/24 14:00 08/22/24 06:14 100 MLS/HR Hydralazine HCl 10 mg Q4HP PRN IV 08/18/24 00:45 08/22/24 06:28 10 MG Carvedilol 12.5 mg Q12HR PO 08/18/24 22:00 08/21/24 22:34 12.5 MG Levothyroxine Sodium 100 mcg QAM PO 08/19/24 07:00 08/22/24 06:14 100 MCG Lorazepam 0.5 mg DAILYP PRN PO 08/18/24 20:00 08/20/24 22:34 0.5 MG Potassium Bicarbonate 50 meq BID PO 08/19/24 10:15 08/21/24 22:33 50 MEQ Labetalol HCl 10 mg Q2HPRN PRN IV 08/19/24 16:15 08/20/24 05:18 10 MG Acetaminophen/ Hydrocodone Bitart 1 tab Q4HPRN PRN PO 08/19/24 16:30 08/21/24 10:22 1 TAB Hydromorphone HCl 0.5 mg Q3HPRN PRN IV 08/20/24 21:15 Sodium Chloride 1,000 ml @ 75 mls/hr [id number] IV 08/21/24 10:30 08/21/24 23:50 75 MLS/HR Docusate Sodium 100 mg BID PO 08/21/24 22:00 Lactulose 15 ml DAILY PO 08/22/24 10:00 Mirtazapine 30 mg HS PO 08/21/24 22:00 08/21/24 22:35 30 MG Enteral Nutritional Formula 240 ml BIDWM PO 08/21/24 18:00 08/22/24 08:33 240 ML objective Head and neck: Unremarkable for any masses or neck nodes. Lungs: Clear Cardiovascular: Regular sinus rhythm Abdomen: No organomegaly, tenderness or ascites. Bowel sounds are present. Extremities: No clubbing edema cyanosis or calf tenderness. Skin: Unremarkable for petechia purpura ecchymosis Lymphadenopathy: None laboratory and microbiology Laboratory Tests 08/22/24 05:12 Test 08/22/24 05:12 Range/Units Serum Glucose 84 74-106 mg/dL Assessment/Plan 1. Hypercalcemia, normal PTH, the etiology could be underlying malignancy, the patient has been taking 2-4 calciums a day at home with vitamin-D which may contribute to hypercalcemia also, but the patient is losing weight and there is some CT scan findings of suspicious findings in the rectum in the pancreas so an underlying malignancy definitely needs to be ruled out. May rule out the possibility of plasma cell dyscrasia The sigmoidoscopy showed an ulcer in the rectum and the biopsies taken, IgA 11 IgM 16. Serum immune fixation is pending 2. Hypertension/coronary artery disease bypass surgery and pacemaker 3. Hypothyroidism 4. Hyperlipidemia 5. Renal insufficiency Plan: We will suggest doing a bone marrow aspiration biopsy to rule out plasma cell dyscrasia, especially with M spike and high IgG. We will send bone marrow for the pathology , flow cytometry and cytogenetics and fish The patient should follow up with me after discharge Dietary Evaluation Review Comments: 1) Continue to monitor pt PO intake to meet at least 75% of meals 2) Continue current plan of care Expected Outcomes/Goals: F/U in 3-5 days Plan discussed with: Patient JOSE MIGUEL FORD MD Aug 22, 2024 08:55
[2024-08-22] MEDS: LACTULOSE 20Gm/30ML SOLN PO SCH (09:43)
[2024-08-22] MEDS: PAMIDRONATE DISODIUM IV ONE (10:50)
[2024-08-22] MEDS: SOD CHL 0.45% IV ONE (10:50)
[2024-08-22 11:08] LABS: INR 1.08 (0.9-1.15); Prothrombin Time 11.4 sec (9.3-11.8)
--- NOTE | 2024-08-22 11:42 | DVHPN2 ---
Progress Note - Dictate Date Seen: Aug 22, 2024 Has the PT tested + for MRSA If YES, has PT been informed?: Yes Medical Necessity Reason Pt with a Central, PICC or Fol: Yes Subjective Patient complains of some back pain this morning. I had an extensive discussion with him and his on the phone regarding plan of care and the need for bone marrow biopsy and bone scan to evaluate for underlying multiple myeloma suggested by recent laboratory findings. Patient was in agreement to proceed with this test today. I discussed the option of hospice in the future if patient does not want a proceed with aggressive care such as chemotherapy. Patient states he would like to proceed with completing all test at this time and we discussed this option in the future possibly on outpatient basis. vital signs Vital Sign Date Time Temp Pulse Resp B/P (MAP) Pulse Ox O2 Delivery O2 Flow Rate FiO2 08/22/24 09:22 75 123/70 08/22/24 08:30 97.9 18 97 97.9 08/21/24 20:00 Nasal Cannula* 3 32 Total Intake and Output 08/21/24 08/21/24 08/22/24 15:00 23:00 07:00 Intake Total 60 ml 970 ml 280 ml Output Total 1375 ml 1400 ml Balance 60 ml -405 ml -1120 ml medications Current Medications Medications Dose Ordered Sig/Shai Route Start Time Stop Time Status Last Admin Dose Admin Nitroglycerin 0.4 mg Q5MINP PRN SL 08/16/24 22:00 Morphine Sulfate 2 mg Q30M PRN IV 08/16/24 22:00 Amlodipine Besylate 5 mg DAILY PO 08/18/24 10:00 08/22/24 09:22 5 MG Polyethylene Glycol 17 gm DAILYPRN PRN PO 08/17/24 10:00 Ceftriaxone Sodium 50 ml @ 100 mls/hr DAILY@09 IV 08/18/24 09:00 08/22/24 09:21 100 MLS/HR Metronidazole 100 ml @ 100 mls/hr Q8HR IV 08/17/24 14:00 08/22/24 06:14 100 MLS/HR Hydralazine HCl 10 mg Q4HP PRN IV 08/18/24 00:45 08/22/24 06:28 10 MG Carvedilol 12.5 mg Q12HR PO 08/18/24 22:00 08/22/24 09:22 12.5 MG Levothyroxine Sodium 100 mcg QAM PO 08/19/24 07:00 08/22/24 06:14 100 MCG Lorazepam 0.5 mg DAILYP PRN PO 08/18/24 20:00 08/20/24 22:34 0.5 MG Potassium Bicarbonate 50 meq BID PO 08/19/24 10:15 08/21/24 22:33 50 MEQ Labetalol HCl 10 mg Q2HPRN PRN IV 08/19/24 16:15 08/20/24 05:18 10 MG Acetaminophen/ Hydrocodone Bitart 1 tab Q4HPRN PRN PO 08/19/24 16:30 08/21/24 10:22 1 TAB Hydromorphone HCl 0.5 mg Q3HPRN PRN IV 08/20/24 21:15 Docusate Sodium 100 mg BID PO 08/21/24 22:00 08/22/24 09:37 100 MG Lactulose 15 ml DAILY PO 08/22/24 10:00 Mirtazapine 30 mg HS PO 08/21/24 22:00 08/21/24 22:35 30 MG Enteral Nutritional Formula 240 ml BIDWM PO 08/21/24 18:00 08/22/24 08:33 240 ML objective General appearance: No acute distress Respiratory: Lungs clear to auscultation. No wheezing, crackles Cardiovascular: Regular rate and rhythm, no murmurs. No edema Abdomen: Soft, nondistended, nontender, bowel sounds present MSK: Normal range of motion. Neuro: Alert, no neurological deficits Psych: Appropriate mood and affect. laboratory and microbiology Laboratory Tests 08/22/24 05:12 Test 08/22/24 05:12 Range/Units Serum Glucose 84 74-106 mg/dL Problem List 1. NSTEMI 2. ROYAL 3. Hypercalcemia 4. 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 Constipation 6. Proctitis vs rectal mass Assessment/Plan -Cardiology consulted, Dr. Munguia. Discontinue heparin drip. No plan for left heart cath at this time. TTE shows normal LVEF. Cardiac clearance completed for flexsig/colonoscopy. -Nephrology consulted for ROYAL. Continue IVF. Discontinue HCTZ. Alendronate added for hypercalcemia. -GI consulted for concern for rectal mass. Patient completed colonoscopy. Colonoscopy reveals large rectal sigmoid ulcer. Biopsies taken. Pending pathology report. Presentation consistent with proctitis. Recommend stool softeners and laxatives. -General surgery consulted for pancreatic mass. Recommend outpatient PET CT scan if needed. No surgical intervention at this time. -Hematology oncology consulted for hypercalcemia. Labs reveal M spike. Concern for underlying multiple myeloma. Bone marrow biopsy and bone scan ordered. Discussed with patient and . -MiraLAX 17 g daily as needed for constipation. DC lactulose. -Continue Ceftriaxone and metronidazole due to concern for underlying enteritis. -Electrolytes repleted. -Muse placed for urinary retention -PT eval ordered - consulted for SNF placement for PT. -Patient requests that all medical information be discussed with him and his at this time only. -Mirtazapine added q. nightly for insomnia and appetite stimulation -Ensure added 3 times daily AC -Full Code Dietary Evaluation Review Comments: 1) Continue to monitor pt PO intake to meet at least 75% of meals 2) Continue current plan of care Expected Outcomes/Goals: F/U in 3-5 days Plan discussed with: Patient, Spouse YOHANA BAKER DO Aug 22, 2024 11:42
--- NOTE | 2024-08-22 16:15 | DVHPN2 ---
Progress Note Date Seen: Aug 22, 2024 Has the PT tested + for MRSA If YES, has PT been informed?: Yes Medical Necessity Reason Pt with a Central, PICC or Fol: Yes Subjective Review of Systems Pt feels well. No complaints. Objective vital signs Vital Sign Date Time Temp Pulse Resp B/P (MAP) Pulse Ox O2 Delivery O2 Flow Rate FiO2 08/22/24 09:22 75 123/70 08/22/24 08:30 97.9 18 97 97.9 08/21/24 20:00 Nasal Cannula* 3 32 Total Intake and Output 08/21/24 08/21/24 08/22/24 15:00 23:00 07:00 Intake Total 60 ml 970 ml 280 ml Output Total 1375 ml 1400 ml Balance 60 ml -405 ml -1120 ml medications Current Medications Medications Dose Ordered Sig/Shai Route Start Time Stop Time Status Last Admin Dose Admin Nitroglycerin 0.4 mg Q5MINP PRN SL 08/16/24 22:00 Morphine Sulfate 2 mg Q30M PRN IV 08/16/24 22:00 Amlodipine Besylate 5 mg DAILY PO 08/18/24 10:00 08/22/24 09:22 5 MG Polyethylene Glycol 17 gm DAILYPRN PRN PO 08/17/24 10:00 Ceftriaxone Sodium 50 ml @ 100 mls/hr DAILY@09 IV 08/18/24 09:00 08/22/24 09:21 100 MLS/HR Metronidazole 100 ml @ 100 mls/hr Q8HR IV 08/17/24 14:00 08/22/24 14:32 100 MLS/HR Hydralazine HCl 10 mg Q4HP PRN IV 08/18/24 00:45 08/22/24 06:28 10 MG Carvedilol 12.5 mg Q12HR PO 08/18/24 22:00 08/22/24 09:22 12.5 MG Levothyroxine Sodium 100 mcg QAM PO 08/19/24 07:00 08/22/24 06:14 100 MCG Lorazepam 0.5 mg DAILYP PRN PO 08/18/24 20:00 08/20/24 22:34 0.5 MG Labetalol HCl 10 mg Q2HPRN PRN IV 08/19/24 16:15 08/20/24 05:18 10 MG Acetaminophen/ Hydrocodone Bitart 1 tab Q4HPRN PRN PO 08/19/24 16:30 08/21/24 10:22 1 TAB Hydromorphone HCl 0.5 mg Q3HPRN PRN IV 08/20/24 21:15 Docusate Sodium 100 mg BID PO 08/21/24 22:00 08/22/24 09:37 100 MG Mirtazapine 30 mg HS PO 08/21/24 22:00 08/21/24 22:35 30 MG Enteral Nutritional Formula 240 ml BIDWM PO 08/21/24 18:00 08/22/24 08:33 240 ML Examination AFVSS. Abdomen soft, ND and NT. Colonoscopy report reviewed. No evidence of malignancy. Proctitis/rectal ulceration laboratory and microbiology Laboratory Tests 08/22/24 05:12 Test 08/22/24 05:12 Range/Units Serum Glucose 84 74-106 mg/dL Problem List/Assessment/Plan Problems(with codes): (1) Hypercalcemia (2) Proctitis (3) Rectal ulceration (4) Mass of pancreas Problem List/Assessment/Plan Resume diet. Avoid constipation. No surgical intervention indicated nor warranted for proctitis/rectal ulceration. Continue W/U for hidden malignancy/hypercalcemia. Pancreatic mass to be resected by surg onc or hepatobiloary surgeon. PET/CT as outpt. Plan discussed with: Patient, Spouse Dietary Evaluation Review Comments: 1) Continue to monitor pt PO intake to meet at least 75% of meals 2) Continue current plan of care Expected Outcomes/Goals: F/U in 3-5 days KAREY JAMISON MD Aug 22, 2024 16:15
[2024-08-22] MEDS: HYDROmorphone HCL 2 MG/ML VL/or syr IV PRN (17:44)
--- NOTE | 2024-08-22 18:23 | DVHPN2 ---
Progress Note Date Seen: Aug 22, 2024 Has the PT tested + for MRSA If YES, has PT been informed?: Yes Medical Necessity Reason Pt with a Central, PICC or Fol: Yes Subjective Patient reports: No new complaints Review of Systems: HEENT:Normal, CVS:Normal, RESPIRATORY:Normal, GI:Normal, :Normal, MSK:Normal, NEURO:Normal Objective vital signs Vital Sign Date Time Temp Pulse Resp B/P (MAP) Pulse Ox O2 Delivery O2 Flow Rate FiO2 08/22/24 17:44 71 18 141/84 08/22/24 13:30 97.7 99 97.7 08/22/24 08:00 Nasal Cannula* 2 28 Total Intake and Output 08/21/24 08/21/24 08/22/24 15:00 23:00 07:00 Intake Total 60 ml 970 ml 280 ml Output Total 1375 ml 1400 ml Balance 60 ml -405 ml -1120 ml medications Current Medications Medications Dose Ordered Sig/Shai Route Start Time Stop Time Status Last Admin Dose Admin Nitroglycerin 0.4 mg Q5MINP PRN SL 08/16/24 22:00 Morphine Sulfate 2 mg Q30M PRN IV 08/16/24 22:00 Amlodipine Besylate 5 mg DAILY PO 08/18/24 10:00 08/22/24 09:22 5 MG Polyethylene Glycol 17 gm DAILYPRN PRN PO 08/17/24 10:00 Ceftriaxone Sodium 50 ml @ 100 mls/hr DAILY@09 IV 08/18/24 09:00 08/22/24 09:21 100 MLS/HR Metronidazole 100 ml @ 100 mls/hr Q8HR IV 08/17/24 14:00 08/22/24 14:32 100 MLS/HR Hydralazine HCl 10 mg Q4HP PRN IV 08/18/24 00:45 08/22/24 06:28 10 MG Carvedilol 12.5 mg Q12HR PO 08/18/24 22:00 08/22/24 09:22 12.5 MG Levothyroxine Sodium 100 mcg QAM PO 08/19/24 07:00 08/22/24 06:14 100 MCG Lorazepam 0.5 mg DAILYP PRN PO 08/18/24 20:00 08/20/24 22:34 0.5 MG Labetalol HCl 10 mg Q2HPRN PRN IV 08/19/24 16:15 08/20/24 05:18 10 MG Acetaminophen/ Hydrocodone Bitart 1 tab Q4HPRN PRN PO 08/19/24 16:30 08/21/24 10:22 1 TAB Hydromorphone HCl 0.5 mg Q3HPRN PRN IV 08/20/24 21:15 08/22/24 17:44 0.5 MG Docusate Sodium 100 mg BID PO 08/21/24 22:00 08/22/24 09:37 100 MG Mirtazapine 30 mg HS PO 08/21/24 22:00 08/21/24 22:35 30 MG Enteral Nutritional Formula 240 ml BIDWM PO 08/21/24 18:00 08/22/24 08:33 240 ML laboratory and microbiology Laboratory Tests 08/22/24 05:12 Test 08/22/24 05:12 Range/Units Serum Glucose 84 74-106 mg/dL Problem List/Assessment/Plan Problem List/Assessment/Plan Acute kidney injury superimposed Chronic Kidney Disease secondary hemodynamic mediated- NSTEMI Hypercalcemia rule out malignancy Hypokalemia Anemia of chronic kidney disease Recommendations pamidronate 30mg iv slow rate 1 dose BM biopsy per heme will f/u stop calcium supplements on DC Plan discussed with: Patient My Orders My Orders Orders - LEROY SHEETS MD Procedure Category Date Status Time [place] Lambda [facility] 08/22/24 In Process Chain Free S 08:47 Pamidronate Disodium PHA 08/22/24 In Process ([place]) 09:15 Dietary Evaluation Review Comments: 1) Continue to monitor pt PO intake to meet at least 75% of meals 2) Continue current plan of care Expected Outcomes/Goals: F/U in 3-5 days LEROY SHEETS MD Aug 22, 2024 18:23
--- NOTE | 2024-08-22 18:30 | DVHPN2 ---
Progress Note - Dictate Date Seen: Aug 22, 2024 Has the PT tested + for MRSA If YES, has PT been informed?: Yes Medical Necessity Reason Pt with a Central, PICC or Fol: Yes Subjective No new complaints Patient seen at bedside resting comfortably He is tolerating diet Patient did have a bowel movement last night vital signs Vital Sign Date Time Temp Pulse Resp B/P (MAP) Pulse Ox O2 Delivery O2 Flow Rate FiO2 08/22/24 17:44 71 18 141/84 08/22/24 13:30 97.7 99 97.7 08/22/24 08:00 Nasal Cannula* 2 28 Total Intake and Output 08/21/24 08/21/24 08/22/24 15:00 23:00 07:00 Intake Total 60 ml 970 ml 280 ml Output Total 1375 ml 1400 ml Balance 60 ml -405 ml -1120 ml medications Current Medications Medications Dose Ordered Sig/Shai Route Start Time Stop Time Status Last Admin Dose Admin Nitroglycerin 0.4 mg Q5MINP PRN SL 08/16/24 22:00 Morphine Sulfate 2 mg Q30M PRN IV 08/16/24 22:00 Amlodipine Besylate 5 mg DAILY PO 08/18/24 10:00 08/22/24 09:22 5 MG Polyethylene Glycol 17 gm DAILYPRN PRN PO 08/17/24 10:00 Ceftriaxone Sodium 50 ml @ 100 mls/hr DAILY@09 IV 08/18/24 09:00 08/22/24 09:21 100 MLS/HR Metronidazole 100 ml @ 100 mls/hr Q8HR IV 08/17/24 14:00 08/22/24 14:32 100 MLS/HR Hydralazine HCl 10 mg Q4HP PRN IV 08/18/24 00:45 08/22/24 06:28 10 MG Carvedilol 12.5 mg Q12HR PO 08/18/24 22:00 08/22/24 09:22 12.5 MG Levothyroxine Sodium 100 mcg QAM PO 08/19/24 07:00 08/22/24 06:14 100 MCG Lorazepam 0.5 mg DAILYP PRN PO 08/18/24 20:00 08/20/24 22:34 0.5 MG Labetalol HCl 10 mg Q2HPRN PRN IV 08/19/24 16:15 08/20/24 05:18 10 MG Acetaminophen/ Hydrocodone Bitart 1 tab Q4HPRN PRN PO 08/19/24 16:30 08/21/24 10:22 1 TAB Hydromorphone HCl 0.5 mg Q3HPRN PRN IV 08/20/24 21:15 08/22/24 17:44 0.5 MG Docusate Sodium 100 mg BID PO 08/21/24 22:00 08/22/24 09:37 100 MG Mirtazapine 30 mg HS PO 08/21/24 22:00 08/21/24 22:35 30 MG Enteral Nutritional Formula 240 ml BIDWM PO 08/21/24 18:00 08/22/24 08:33 240 ML objective General: Appears stated age, in no acute distress Pulm: Clear to auscultation bilaterally CVS: RRR, normal S1 and S2 Ext: No edema noted Neuro: Alert laboratory and microbiology Laboratory Tests 08/22/24 05:12 Test 08/22/24 05:12 Range/Units Serum Glucose 84 74-106 mg/dL Problems(with codes): (1) Rectal ulceration (2) Proctitis (3) GI bleed (4) Constipation (5) Acute kidney injury (6) Mass of pancreas (7) Non-STEMI (non-ST elevated myocardial infarction) Prognosis Plan Patient is awaiting a bone marrow biopsy He had a bone scan today CA 19-9 was normal Patient was unable to get an MRI Continue stool softeners Advance diet as tolerated If further workup of the pancreatic tail is required one could consider a CT scan with pancreas protocol or in outpatient elective endoscopic ultrasound in the future Dietary Evaluation Review Comments: 1) Continue to monitor pt PO intake to meet at least 75% of meals 2) Continue current plan of care Expected Outcomes/Goals: F/U in 3-5 days Plan discussed with: Patient, Spouse GRACE KIM MD Aug 22, 2024 18:30
--- NOTE | 2024-08-22 23:35 | DVHPN2 ---
Progress Note - Dictate Date Seen: Aug 22, 2024 Has the PT tested + for MRSA If YES, has PT been informed?: Yes Medical Necessity Reason Pt with a Central, PICC or Fol: Yes Subjective Patient was seen and evaluated in follow up. Patient is complaining of back pain. The patient had a bone scan done today, results pending. Patient is pending bone marrow biopsy to evaluate for underlying multiple myeloma suggested by recent laboratory findings. vital signs Vital Sign Date Time Temp Pulse Resp B/P (MAP) Pulse Ox O2 Delivery O2 Flow Rate FiO2 08/22/24 22:19 69 159/91 08/22/24 21:00 97.7 18 100 97.7 08/22/24 20:00 Nasal Cannula* 2 28 Total Intake and Output 08/21/24 08/21/24 08/22/24 15:00 23:00 07:00 Intake Total 60 ml 970 ml 280 ml Output Total 1375 ml 1400 ml Balance 60 ml -405 ml -1120 ml medications Current Medications Medications Dose Ordered Sig/Shai Route Start Time Stop Time Status Last Admin Dose Admin Nitroglycerin 0.4 mg Q5MINP PRN SL 08/16/24 22:00 Morphine Sulfate 2 mg Q30M PRN IV 08/16/24 22:00 Amlodipine Besylate 5 mg DAILY PO 08/18/24 10:00 08/22/24 09:22 5 MG Polyethylene Glycol 17 gm DAILYPRN PRN PO 08/17/24 10:00 Ceftriaxone Sodium 50 ml @ 100 mls/hr DAILY@09 IV 08/18/24 09:00 08/22/24 09:21 100 MLS/HR Metronidazole 100 ml @ 100 mls/hr Q8HR IV 08/17/24 14:00 08/22/24 21:18 100 MLS/HR Hydralazine HCl 10 mg Q4HP PRN IV 08/18/24 00:45 08/22/24 22:09 10 MG Carvedilol 12.5 mg Q12HR PO 08/18/24 22:00 08/22/24 21:19 12.5 MG Levothyroxine Sodium 100 mcg QAM PO 08/19/24 07:00 08/22/24 06:14 100 MCG Lorazepam 0.5 mg DAILYP PRN PO 08/18/24 20:00 08/20/24 22:34 0.5 MG Labetalol HCl 10 mg Q2HPRN PRN IV 08/19/24 16:15 08/20/24 05:18 10 MG Acetaminophen/ Hydrocodone Bitart 1 tab Q4HPRN PRN PO 08/19/24 16:30 08/21/24 10:22 1 TAB Hydromorphone HCl 0.5 mg Q3HPRN PRN IV 08/20/24 21:15 08/22/24 17:44 0.5 MG Docusate Sodium 100 mg BID PO 08/21/24 22:00 08/22/24 09:37 100 MG Mirtazapine 30 mg HS PO 08/21/24 22:00 08/22/24 21:18 30 MG Enteral Nutritional Formula 240 ml BIDWM PO 08/21/24 18:00 08/22/24 19:26 240 ML objective GENERAL: Awake, alert, oriented. LUNGS: Clear. CARDIOVASCULAR: Heart sounds are good. ABDOMEN: Soft. laboratory and microbiology Laboratory Tests 08/22/24 05:12 Test 08/22/24 05:12 Range/Units Serum Glucose 84 74-106 mg/dL Problem List NSTEMI (non-ST elevated myocardial infarction). Acute kidney injury. Hypercalcemia. Rectal pain. Constipation. Possible proctitis. 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 Hypertension. History of bypass surgery almost 12 years ago 3-vessel at [facility]. History of the pacemaker. Proctitis vs rectal mass. Assessment/Plan Continued all current supportive medical care. Cardiac cleared for procedure. Morphine and [place] for pain management. Amlodipine, Coreg. HCTZ. IV antibiotics as ordered. Additional plan as per the hospital course. Dietary Evaluation Review Comments: 1) Continue to monitor pt PO intake to meet at least 75% of meals 2) Continue current plan of care Expected Outcomes/Goals: F/U in 3-5 days Plan discussed with: Patient YENY VELEZ MD Aug 22, 2024 23:35
[2024-08-23 01:00] VITALS: BP 128/57; PULSE 66; RESP 18; TEMP 98.1; O2SAT 98
[2024-08-23 05:00] VITALS: BP 132/69; PULSE 73; RESP 18; TEMP 98; O2SAT 96
[2024-08-23 07:13] LABS: Basophils # (auto) 0 10 ^3/uL (0-0.2); Eosinophils # (auto) 0.1 10 ^3/uL (0-0.8); Lymphocytes # (auto) 0.4 10 ^3/uL (0.4-5.4); Monocytes # (auto) 0.6 10 ^3/uL (0-1.3); Neutrophils # (auto) 4.2 10 ^3/uL (1.6-8.6); Nucleated Red Blood Cells % 0.1 %; White Blood Cell 5.3 10^3/uL (4.4-10.8)
[2024-08-23 07:16] LABS: Basophils % (auto) 0.4 % (0.0-2.0); Eosinophils % (auto) 1.7 % (0.0-7.0); Hemoglobin 10.8 g/dL (13.5-17.5); Lymphocytes % (auto) 7.5 % (10.0-50.0); Mean Corpuscular Hemoglobin 35.2 pg (28.0-32.0); Mean Corpuscular Volume 100.5 fL (80.0-100.0); Monocytes % (auto) 11.8 % (0.0-12.0); Neutrophils % (auto) 78.6 % (37.0-80.0); Platelet Count (auto) 201 10^3/uL (140-450); Red Blood Cells 3.08 10^6/uL (4.5-5.90); Red Cell Distribution Width 15.2 % (11.8-14.3)
[2024-08-23 07:23] LABS: Alanine Aminotransferase 32 U/L (7-40); Albumin 3.1 g/dL (3.2-4.8); Alkaline Phosphatase 68 U/L (46-116); Anion Gap 7 (5-15); Aspartate Aminotransferase 37 U/L (13-40); BUN/Creatinine Ratio 16.6 (10.0-20.0); Blood Urea Nitrogen 30 mg/dL (9-23); Calcium 10.4 mg/dL (8.7-10.4); Carbon Dioxide 27 mmol/L (20-31); Chloride 100 mmol/L (98-107); Glucose 102 mg/dL (74-106); Potassium 3.1 mmol/L (3.5-5.1); Sodium 134 mmol/L (136-145)
[2024-08-23 07:24] LABS: Bilirubin, Total 0.4 mg/dL (0.2-1.0); Total Protein 6.8 g/dL (5.7-8.2)
[2024-08-23] MEDS: fentaNYL CITRATE 100 MCG/2 ML VL IV ONE (07:30)
[2024-08-23] MEDS: MIDAZOLAM HCL 2MG/2ML 2ml VIAL (1mg/ml) IV ONE (07:30)
[2024-08-23] MEDS: LIDOCAINE 2%HCL (LOCAL ANESTH.) INJ 10ml MDV ONE (07:31)
[2024-08-23 08:00] VITALS: PULSE 71; PULSE 74; RESP 17; O2SAT 99
[2024-08-23 08:10] VITALS: BP 143/78; PULSE 71; RESP 17; TEMP 96.3; O2SAT 99
--- NOTE | 2024-08-23 08:48 | DVH ---
CT PELVIS WO CONTRAST, HISTORY: BONE MARROW BX COMPARISON: None PROCEDURE: Informed consent and time-out was performed before the procedure. Conscious sedation was p erformed by the interventional radiology nurse. The left posterior pelvic bone was marked, sterilized , draped, and locally anesthetized using approximately 8 ml of 1% lidocaine. Axial CT images were use d for localization. A 11 gauge [employer] Bone Biopsy kit was used to take 15 mL aspirate and 1 core s ample. The biopsy needle was then removed. No immediate complications noted. SEDATION: Dr. Karol Herrera was personally responsible for the administration of moderate sedation during the procedure performed, including the use of an independent trained observer who had no other duties during the procedure. The drug[s] utilized were IV fentanyl and versed (see nursing log for details) . The total time of supervision by the attending physician was approximately 20 minutes. FINDINGS: Axial CT images demonstrates biopsy needle within the left posterior pelvic bone. IMPRESSION: CT-guided bone marrow aspiration biopsy of the left posterior pelvic bone.
--- NOTE | 2024-08-23 08:53 | DVHPN2 ---
Progress Note Date Seen: Aug 23, 2024 Has the PT tested + for MRSA If YES, has PT been informed?: Yes Medical Necessity Reason Pt with a Central, PICC or Fol: Yes Subjective Review of Systems Pt feels well. No complaints. Objective vital signs Vital Sign Date Time Temp Pulse Resp B/P (MAP) Pulse Ox O2 Delivery O2 Flow Rate FiO2 08/23/24 08:10 96.3 71 17 143/78 (99) 99 96.3 08/22/24 20:00 Nasal Cannula* 2 28 Total Intake and Output 08/22/24 08/22/24 08/23/24 15:00 23:00 07:00 Intake Total 50 ml 580 ml 1100 ml Output Total 1200 ml 1250 ml Balance 50 ml -620 ml -150 ml medications Current Medications Medications Dose Ordered Sig/Shai Route Start Time Stop Time Status Last Admin Dose Admin Nitroglycerin 0.4 mg Q5MINP PRN SL 08/16/24 22:00 Morphine Sulfate 2 mg Q30M PRN IV 08/16/24 22:00 Amlodipine Besylate 5 mg DAILY PO 08/18/24 10:00 08/22/24 09:22 5 MG Polyethylene Glycol 17 gm DAILYPRN PRN PO 08/17/24 10:00 Ceftriaxone Sodium 50 ml @ 100 mls/hr DAILY@09 IV 08/18/24 09:00 08/22/24 09:21 100 MLS/HR Metronidazole 100 ml @ 100 mls/hr Q8HR IV 08/17/24 14:00 08/23/24 05:22 100 MLS/HR Hydralazine HCl 10 mg Q4HP PRN IV 08/18/24 00:45 08/22/24 22:09 10 MG Carvedilol 12.5 mg Q12HR PO 08/18/24 22:00 08/22/24 21:19 12.5 MG Levothyroxine Sodium 100 mcg QAM PO 08/19/24 07:00 08/23/24 06:01 100 MCG Lorazepam 0.5 mg DAILYP PRN PO 08/18/24 20:00 08/20/24 22:34 0.5 MG Labetalol HCl 10 mg Q2HPRN PRN IV 08/19/24 16:15 08/20/24 05:18 10 MG Acetaminophen/ Hydrocodone Bitart 1 tab Q4HPRN PRN PO 08/19/24 16:30 08/23/24 05:50 1 TAB Hydromorphone HCl 0.5 mg Q3HPRN PRN IV 08/20/24 21:15 08/22/24 17:44 0.5 MG Docusate Sodium 100 mg BID PO 08/21/24 22:00 08/22/24 09:37 100 MG Mirtazapine 30 mg HS PO 08/21/24 22:00 08/22/24 21:18 30 MG Enteral Nutritional Formula 240 ml BIDWM PO 08/21/24 18:00 08/22/24 19:26 240 ML Examination Abdomen soft, ND and NT laboratory and microbiology Laboratory Tests 08/23/24 06:12 Test 08/23/24 06:12 Range/Units Serum Glucose 102 74-106 mg/dL Problem List/Assessment/Plan Problems(with codes): (1) Rectal ulceration (2) Proctitis (3) Constipation (4) Non-STEMI (non-ST elevated myocardial infarction) (5) Mass of pancreas Problem List/Assessment/Plan Resume diet. Avoid constipation. No surgical intervention indicated nor warranted for proctitis/rectal ulceration. Continue W/U for hidden malignancy/hypercalcemia. Pancreatic mass to be resected by surg onc or hepatobiloary. PET/CT as outpt. Will sign off. Please call if needed. Defer care to admitting physician and other consultants. Plan discussed with: Patient, Other (Dr. Meyer) Dietary Evaluation Review Comments: 1) Continue to monitor pt PO intake to meet at least 75% of meals 2) Continue current plan of care Expected Outcomes/Goals: F/U in 3-5 days KAREY JAMISON MD Aug 23, 2024 08:53
[2024-08-23 12:07] VITALS: BP 102/60; PULSE 60; RESP 16; TEMP 97.3; O2SAT 94
[2024-08-23 12:07] LABS: Kappa Lite Chain Free Serum 1306.1 mg/L (3.3-19.4)
--- NOTE | 2024-08-23 12:15 | DVHDS2 ---
Discharge Summary Date of Admission Aug 16, 2024 at 21:46 Date of Discharge: Aug 23, 2024 Labs/Diagnostic Data: Laboratory Results Test 08/23/24 06:12 08/22/24 10:24 08/22/24 05:12 08/19/24 15:30 White Blood Count 5.3 10^3/uL (4.4-10.8) Red Blood Count 3.08 10^6/uL (4.5-5.90) Hemoglobin 10.8 g/dL (13.5-17.5) Hematocrit 31.0 % (41.0-53.0) Mean Corpuscular Volume 100.5 fL (80.0-100.0) Mean Corpuscular Hemoglobin 35.2 pg (28.0-32.0) Mean Corpuscular Hemoglobin Concent 35.0 g/dL (32.0-36.0) Red Cell Distribution Width 15.2 % (11.8-14.3) Platelet Count 201 10^3/uL (140-450) Mean Platelet Volume 7.8 fL (6.9-10.8) Neutrophils (%) (Auto) 78.6 % (37.0-80.0) Lymphocytes (%) (Auto) 7.5 % (10.0-50.0) Monocytes (%) (Auto) 11.8 % (0.0-12.0) Eosinophils (%) (Auto) 1.7 % (0.0-7.0) Basophils (%) (Auto) 0.4 % (0.0-2.0) Neutrophils # (Auto) 4.2 10 ^3/uL (1.6-8.6) Lymphocytes # (Auto) 0.4 10 ^3/uL (0.4-5.4) Monocytes # (Auto) 0.6 10 ^3/uL (0-1.3) Eosinophils # (Auto) 0.1 10 ^3/uL (0-0.8) Basophils # (Auto) 0 10 ^3/uL (0-0.2) Nucleated Red Blood Cells 0.1 % Sodium Level 134 mmol/L (136-145) Potassium Level 3.1 mmol/L (3.5-5.1) Chloride Level 100 mmol/L (98-107) Carbon Dioxide Level 27 mmol/L (20-31) Anion Gap 7 (5-15) Blood Urea Nitrogen 30 mg/dL (9-23) Creatinine 1.81 mg/dL (0.700-1.30) Glomerular Filtration Rate Calc 36 mL/min (>90) BUN/Creatinine Ratio 16.6 (10.0-20.0) Serum Glucose 102 mg/dL (74-106) Calcium Level 10.4 mg/dL (8.7-10.4) Total Bilirubin 0.4 mg/dL (0.2-1.0) Aspartate Amino Transferase (AST) 37 U/L (13-40) Alanine Aminotransferase (ALT) 32 U/L (7-40) Alkaline Phosphatase 68 U/L (46-116) Total Protein 6.8 g/dL (5.7-8.2) Albumin 3.1 g/dL (3.2-4.8) Prothrombin Time 11.4 sec (9.3-11.8) Prothrombin Time INR 1.08 (0.9-1.15) Free [place] Light Chains, Quant 1306.1 mg/L (3.3-19.4) Free [place]/Lambda Light Chain Ratio 143.53 (0.26-1.65) Activated Partial Thromboplast Time 44.2 SEC (24.5-34.5) Test 08/18/24 10:58 08/18/24 07:50 08/18/24 06:25 08/17/24 16:22 Serum Immunoglobulin G 2588 mg/dL (603-1613) Globulin (PEP) 4.1 g/dL (2.2-3.9) Albumin/Globulin Ratio 0.7 (0.7-1.7) Iwwcz-2-Xothmjuxg 0.4 g/dL (0.0-0.4) Xeiwl-5-Xusxhabty 0.8 g/dL (0.4-1.0) Beta Globulins 0.9 g/dL (0.7-1.3) Gamma Globulins 2.0 g/dL (0.4-1.8) Protein Electrophoresis M-Luis 1.8 g/dL (Not Observed) Protein Electrophoresis Note Comment (.) Free Prostate Specific Antigen 0.21 ng/mL (N/A) Percent Free Prostate Specific Ag 17.5 % (.) Prostate Specific Antigen Total 1.2 ng/mL (0.0-4.0) Immunoglobulin A 11 mg/dL (61-437) Immunoglobulin M 16 mg/dL (15-143) Serum Immunofixation Comment (.) Urine Color Light-yellow (Yellow) Urine Clarity Clear (Clear) Urine pH 7.0 (5.0-9.0) Urine Specific [place] 1.009 (1.001-1.035) Urine Protein Negative (Negative) Urine Ketones Negative (Negative) Urine Blood 1+ /uL (Negative) Urine Nitrite Negative (Negative) Urine Bilirubin Negative (Negative) Urine Urobilinogen Normal mg/dL (Negative) Urine Leukocyte Esterase Negative /uL (Negative) Urine RBC 16 /hpf (0 - 3) Urine WBC 4 /hpf (0 - 3) Urine Squamous Epithelial Cells None seen /hpf (<5) Urine Bacteria None seen /hpf (None Seen) Urine Hyaline Casts Few /lpf (0 - 2) Urine Osmolality 290 mOsm/kg Urine Creatinine 42.61 mg/dL (30.0-125.0) Urine Sodium 50 mmol/L (40-220) Urine Glucose Normal mg/dL (Normal) Urine Total Protein 32.4 mg/dL (1-14) Lactate Dehydrogenase 166 U/L (120-246) CA 125 Antigen 28.0 U/mL (Not Estab.) CA 19-9 Antigen 10 U/mL (0-35) Test 08/17/24 11:44 08/17/24 05:48 08/17/24 04:58 08/16/24 21:04 Troponin I High Sensitivity 670 ng/L (</=54) Carcinoembryonic Antigen 1.31 ng/mL (<=5.0) Vitamin D 25-Hydroxy 76.7 ng/mL (30.0-100) Thyroid Stimulating Hormone (TSH) 0.32 uIU/mL (0.55-4.78) Parathyroid Hormone (Intact) 36.5 pg/mL (18.4-80.1) Hepatitis B Surface Antigen Negative (Negative) Hepatitis C Antibody Negative (Negative) Magnesium Level 2.2 mg/dL (1.6-2.6) Urine Mucus Few (None Seen) Test 08/16/24 18:08 B-Type Natriuretic Peptide 441.10 pg/mL (0-100) Other Laboratory Tests 08/23/24 06:12 Brief Hx & Hospital Course: Patient is a 88-year-old male with past medical history of coronary artery disease, history of CABG, 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 Patient presented with calcium level noted to be highly elevated at 17.2. He was also noted to be in acute renal failure with BUN/creatinine of 33/2 on admission. Hematology oncology was consulted and patient underwent malignancy workup. Laboratory findings suggested multiple myeloma. Patient underwent bone marrow biopsy and bone scan. These results are pending at the time of discharge and the patient is to follow-up on outpatient basis with oncology. Furthermore, patient had complained of chronic constipation. CT chest/abdomen/pelvis was done which questionable mass in the tail of the pancreas. General surgery was consulted. It was recommended that patient undergo PET CT scan on outpatient basis. At this point, patient can be reevaluated for surgical intervention if he is a candidate. Patient was also evaluated by GI due to wall thickening of the rectum with perirectal stranding. Patient underwent a colonoscopy which was consistent with proctitis and revealed a large ulceration in the rectosigmoid region. It was recommended that patient maintain a high-fiber diet with stool softeners and laxatives as tolerated. Patient was seen by nephrology and patient was ultimately started on pamidronate for his hypercalcemia. His renal function improved to BUN/creatinine of 30/1.81 prior to discharge. He is to repeat this medication on outpatient basis approximately q. monthly. Patient was also noted to have elevated troponin on arrival of 1156 which down trended. Patient was started on heparin drip and cardiology was consulted. It was recommended that patient complete medical management without aggressive left heart cath intervention. His presentation was attributed to demand ischemia. TTE was done which showed normal left ventricular systolic function with estimated ejection fraction of 65%. Patient was evaluated by physical therapy and noted to require significant assistance. Patient was ultimately transferred to SNF for continued physical therapy. He is to follow-up on outpatient basis with oncology regarding bone marrow biopsy results and nuclear medicine bone scan for concerns of multiple myeloma. Patient is to follow-up with nephrology regarding his ROYAL likely secondary to underlying multiple myeloma and repeat transfusion of pamidronate. Patient was started on mirtazapine for insomnia and appetite stimulation. Patient is also follow-up with cardiology. Patient discharged in stable condition. Plan discussed with patient and . [facility] case management to help arrange follow-up. Condition at Discharge: Fair Final Diagnosis/Problems List Generalized Weakness Secondary Diagnosis: 1. NSTEMI 2. ROYAL 3. Hypercalcemia 4. 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 Constipation 6. Proctitis 7. Acute Respiratory Failure 8. Concern for malignancy-Multiple Myeloma 9. Insomnia 10. Unintentional Weight Loss Discharge Disposition: Custodial Facility Discharge Instruct/Medications Diet: Renal Activity: No Restrictions, As Tolerated Follow Up/Referral: Follow up with oncology outpatient. Discharge Statement: "Patient was advised to return to the ER or call 911 if any headaches, dizziness, shortness of breath, chest pain, abdominal pain, bleeding, fevers, or worsening of medical condition. Patient was counseled about treatment plan, medications, possible side effects, patientverbalized understanding. All questions were answered to the best of my ability. This discharge took greater then 30 minutes in planning, reviewing documentation, counseling the patient, and discussing with other team members." ASSESSMENT ASSESSMENT Assessment Generalized Weakness YOHANA BAKER DO Aug 23, 2024 12:14
--- NOTE | 2024-08-23 12:42 | DVH ---
CLINICAL INFORMATION: 88 years old, Male; rule out metastatic disease. High calcium levels. TECHNIQUE: Following the intravenous administration of 20.8 mCi technetium 99m-MDP, anterior and pos terior whole-body planar imaging was performed. Dedicated anterior and posterior images of the pelvis were also obtained. COMPARISON: Correlation made to CT of the chest, abdomen, and pelvis dated 08/17/2024. FINDINGS: There are focal areas of increased activity in the lumbar spine at the L1 and L4 vertebral bodies and in the midthoracic spine at approximately T8, likely due to healing compression fractures when correlated with prior CT exam. There is contamination along the lateral aspect of the right thig h and focal areas of prominent activity projecting over the right distal forearm/ wrist. Additional f oci projecting over the pelvis on the anterior whole-body images, not seen on the posterior whole bod y images or on the anterior or posterior pelvic images, presumably due to contamination. IMPRESSION: 1. Focal activity in the L1, L4, and T8 vertebral bodies, most likely due to healing compression frac tures in these locations when correlated with recent CT examination. 2. No other areas of suspicious activity to suggest metastatic disease. 3. Areas of presumed contamination as described above.
--- NOTE | 2024-08-23 13:37 | DVHPN2 ---
Progress Note - Dictate Date Seen: Aug 23, 2024 Has the PT tested + for MRSA If YES, has PT been informed?: Yes Medical Necessity Reason Pt with a Central, PICC or Fol: Yes Subjective Patient was seen and evaluated in follow up. Patient is complaining of chronic back pain. Bone marrow biopsy revealed focal activity in the L1, L4, and T8 vertebral bodies, most likely due to healing compression fractures in these locations when correlated with recent CT examination. No other areas of suspicious activity to suggest metastatic disease. BUN 30, RAD TECH 1.81. vital signs Vital Sign Date Time Temp Pulse Resp B/P (MAP) Pulse Ox O2 Delivery O2 Flow Rate FiO2 08/23/24 12:07 97.3 60 16 102/60 (74) 94 97.3 08/22/24 20:00 Nasal Cannula* 2 28 Total Intake and Output 08/22/24 08/22/24 08/23/24 15:00 23:00 07:00 Intake Total 50 ml 580 ml 1100 ml Output Total 1200 ml 1250 ml Balance 50 ml -620 ml -150 ml medications Current Medications Medications Dose Ordered Sig/Shai Route Start Time Stop Time Status Last Admin Dose Admin Nitroglycerin 0.4 mg Q5MINP PRN SL 08/16/24 22:00 Morphine Sulfate 2 mg Q30M PRN IV 08/16/24 22:00 Amlodipine Besylate 5 mg DAILY PO 08/18/24 10:00 08/23/24 09:17 5 MG Polyethylene Glycol 17 gm DAILYPRN PRN PO 08/17/24 10:00 Ceftriaxone Sodium 50 ml @ 100 mls/hr DAILY@09 IV 08/18/24 09:00 08/23/24 09:17 100 MLS/HR Metronidazole 100 ml @ 100 mls/hr Q8HR IV 08/17/24 14:00 08/23/24 05:22 100 MLS/HR Hydralazine HCl 10 mg Q4HP PRN IV 08/18/24 00:45 08/22/24 22:09 10 MG Carvedilol 12.5 mg Q12HR PO 08/18/24 22:00 08/23/24 09:16 12.5 MG Levothyroxine Sodium 100 mcg QAM PO 08/19/24 07:00 08/23/24 06:01 100 MCG Lorazepam 0.5 mg DAILYP PRN PO 08/18/24 20:00 08/20/24 22:34 0.5 MG Labetalol HCl 10 mg Q2HPRN PRN IV 08/19/24 16:15 08/20/24 05:18 10 MG Acetaminophen/ Hydrocodone Bitart 1 tab Q4HPRN PRN PO 08/19/24 16:30 08/23/24 05:50 1 TAB Hydromorphone HCl 0.5 mg Q3HPRN PRN IV 08/20/24 21:15 08/22/24 17:44 0.5 MG Docusate Sodium 100 mg BID PO 08/21/24 22:00 08/23/24 09:17 100 MG Mirtazapine 30 mg HS PO 08/21/24 22:00 08/22/24 21:18 30 MG Enteral Nutritional Formula 240 ml BIDWM PO 08/21/24 18:00 08/22/24 19:26 240 ML objective GENERAL: Awake, alert, oriented. LUNGS: Clear. CARDIOVASCULAR: Heart sounds are good. ABDOMEN: Soft. laboratory and microbiology Laboratory Tests 08/23/24 06:12 Test 08/23/24 06:12 Range/Units Serum Glucose 102 74-106 mg/dL Problem List NSTEMI (non-ST elevated myocardial infarction). Acute kidney injury. Hypercalcemia. Rectal pain. Constipation. Possible proctitis. 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 Hypertension. History of bypass surgery almost 12 years ago 3-vessel at [facility]. History of the pacemaker. Proctitis vs rectal mass. Assessment/Plan Continued all current supportive medical care. Cardiac cleared for procedure. Morphine and [place] for pain management. Amlodipine, Coreg. HCTZ. IV antibiotics as ordered. Additional plan as per the hospital course. Dietary Evaluation Review Comments: 1) Continue to monitor pt PO intake to meet at least 75% of meals 2) Continue current plan of care Expected Outcomes/Goals: F/U in 3-5 days Plan discussed with: Patient YENY VELEZ MD Aug 23, 2024 13:03
[2024-08-23 13:51] VITALS: BP 143/78; PULSE 71; RESP 17; TEMP 96.5; O2SAT 99
--- NOTE | 2024-08-23 13:56 | DVHPN2 ---
Progress Note - Dictate Date Seen: Aug 23, 2024 Has the PT tested + for MRSA If YES, has PT been informed?: Yes Medical Necessity Reason Pt with a Central, PICC or Fol: Yes Subjective No new complaints Patient seen at bedside resting comfortably He is tolerating diet Patient did have 2 bowel movement last night Calcium level is down to 10.5 Patient is S/P a bone marrow biopsy and also a bone scan vital signs Vital Sign Date Time Temp Pulse Resp B/P (MAP) Pulse Ox O2 Delivery O2 Flow Rate FiO2 08/23/24 12:07 97.3 60 16 102/60 (74) 94 97.3 08/22/24 20:00 Nasal Cannula* 2 28 Total Intake and Output 08/22/24 08/22/24 08/23/24 15:00 23:00 07:00 Intake Total 50 ml 580 ml 1100 ml Output Total 1200 ml 1250 ml Balance 50 ml -620 ml -150 ml medications Current Medications Medications Dose Ordered Sig/Shai Route Start Time Stop Time Status Last Admin Dose Admin Nitroglycerin 0.4 mg Q5MINP PRN SL 08/16/24 22:00 Morphine Sulfate 2 mg Q30M PRN IV 08/16/24 22:00 Amlodipine Besylate 5 mg DAILY PO 08/18/24 10:00 08/23/24 09:17 5 MG Polyethylene Glycol 17 gm DAILYPRN PRN PO 08/17/24 10:00 Ceftriaxone Sodium 50 ml @ 100 mls/hr DAILY@09 IV 08/18/24 09:00 08/23/24 09:17 100 MLS/HR Metronidazole 100 ml @ 100 mls/hr Q8HR IV 08/17/24 14:00 08/23/24 05:22 100 MLS/HR Hydralazine HCl 10 mg Q4HP PRN IV 08/18/24 00:45 08/22/24 22:09 10 MG Carvedilol 12.5 mg Q12HR PO 08/18/24 22:00 08/23/24 09:16 12.5 MG Levothyroxine Sodium 100 mcg QAM PO 08/19/24 07:00 08/23/24 06:01 100 MCG Lorazepam 0.5 mg DAILYP PRN PO 08/18/24 20:00 08/20/24 22:34 0.5 MG Labetalol HCl 10 mg Q2HPRN PRN IV 08/19/24 16:15 08/20/24 05:18 10 MG Acetaminophen/ Hydrocodone Bitart 1 tab Q4HPRN PRN PO 08/19/24 16:30 08/23/24 05:50 1 TAB Hydromorphone HCl 0.5 mg Q3HPRN PRN IV 08/20/24 21:15 08/22/24 17:44 0.5 MG Docusate Sodium 100 mg BID PO 08/21/24 22:00 08/23/24 09:17 100 MG Mirtazapine 30 mg HS PO 08/21/24 22:00 08/22/24 21:18 30 MG Enteral Nutritional Formula 240 ml BIDWM PO 08/21/24 18:00 08/22/24 19:26 240 ML objective General: Appears stated age, in no acute distress Pulm: Clear to auscultation bilaterally CVS: RRR, normal S1 and S2 Ext: No edema noted Neuro: Alert laboratory and microbiology Laboratory Tests 08/23/24 06:12 Test 08/23/24 06:12 Range/Units Serum Glucose 102 74-106 mg/dL Problems(with codes): (1) Mass of pancreas (2) Rectal ulceration (3) GI bleed (4) Constipation (5) Non-STEMI (non-ST elevated myocardial infarction) (6) Hypercalcemia Prognosis Plan Continue supportive care Await biopsy results Discharge planning to snf Maintained on stool softeners Outpatient follow up with GI Services in 4-6 weeks after discharge Outpatient follow up with Oncology to review bone marrow biopsies and bone scan results Dietary Evaluation Review Comments: 1) Continue to monitor pt PO intake to meet at least 75% of meals 2) Continue current plan of care Expected Outcomes/Goals: F/U in 3-5 days Plan discussed with: Patient GRACE KIM MD Aug 23, 2024 13:56
--- NOTE | 2024-08-23 17:36 | DVHPN2 ---
Progress Note Date Seen: Aug 23, 2024 Has the PT tested + for MRSA If YES, has PT been informed?: Yes Medical Necessity Reason Pt with a Central, PICC or Fol: Yes Subjective Patient reports: No new complaints Review of Systems: Deferred Objective vital signs Vital Sign Date Time Temp Pulse Resp B/P (MAP) Pulse Ox O2 Delivery O2 Flow Rate FiO2 08/23/24 13:51 96.5 71 17 99 08/23/24 12:07 102/60 (74) 08/23/24 08:00 Nasal Cannula* 2 28 Total Intake and Output 08/22/24 08/22/24 08/23/24 15:00 23:00 07:00 Intake Total 50 ml 580 ml 1100 ml Output Total 1200 ml 1250 ml Balance 50 ml -620 ml -150 ml Examination: GENERAL:Normal, HEENT:Normal, NECK:Normal, LUNGS:Normal, CVS:Normal, ABDOMEN:Normal, MSK:Normal, SKIN:Normal, NEURO:Normal, :Normal laboratory and microbiology Laboratory Tests 08/23/24 06:12 Test 08/23/24 06:12 Range/Units Serum Glucose 102 74-106 mg/dL Problem List/Assessment/Plan Problem List/Assessment/Plan Acute kidney injury superimposed Chronic Kidney Disease secondary hemodynamic mediated- NSTEMI 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
== END 2024-08-23 16:03 | DRG 840 ==
LOC: ER 17:44 → EDSEX 17:44 → EDBD 17:44 → TELE 21:46 → TELE-CENTR 23:50
PROVIDERS: ADMIT Student in an Organized Health Care Education/Training Program; ATTEND Student in an Organized Health Care Education/Training Program
PROC: 0DBL8ZX Excision of Transverse Colon, Via Natural or Artificial Opening Endoscopic, Diagnostic (ICD-10-PCS; 2024-08-21)
PROC: 0DBP8ZX Excision of Rectum, Via Natural or Artificial Opening Endoscopic, Diagnostic (ICD-10-PCS; principal; 2024-08-21 13:15)
PROC: 079T3ZX Drainage of Bone Marrow, Percutaneous Approach, Diagnostic (ICD-10-PCS; 2024-08-23)
DX: C90.00 Multiple myeloma not having achieved remission (principal); I21.4 Non-ST elevation (NSTEMI) myocardial infarction; J96.00 Acute respiratory failure, unspecified whether with hypoxia or hypercapnia; N17.0 Acute kidney failure with tubular necrosis; E87.1 Hypo-osmolality and hyponatremia; K63.3 Ulcer of intestine; K82.1 Hydrops of gallbladder; I13.0 Hypertensive heart and chronic kidney disease with heart failure and stage 1 through stage 4 chronic kidney disease, or unspecified chronic kidney disease; E86.0 Dehydration; K57.30 Diverticulosis of large intestine without perforation or abscess without bleeding; K63.89 Other specified diseases of intestine; K64.8 Other hemorrhoids; D63.1 Anemia in chronic kidney disease; E83.52 Hypercalcemia; E87.6 Hypokalemia; K62.89 Other specified diseases of anus and rectum; N18.9 Chronic kidney disease, unspecified; K59.00 Constipation, unspecified; E03.9 Hypothyroidism, unspecified; K59.09 Other constipation; R00.1 Bradycardia, unspecified; K63.5 Polyp of colon; G47.00 Insomnia, unspecified; I50.9 Heart failure, unspecified; E78.5 Hyperlipidemia, unspecified; I25.10 Atherosclerotic heart disease of native coronary artery without angina pectoris; K86.9 Disease of pancreas, unspecified; Z95.0 Presence of cardiac pacemaker; Z95.1 Presence of aortocoronary bypass graft
CPT/HCPCS: 10005; 36415; 71045; 71250; 72192; 74176; 77012; 78306; 80053; 81001; 82306; 82378; 82570; 82784; 83521; 83615; 83735; 83880; 83935; 83970; 84154; 84155; 84156; 84165; 84300; 84443; 84484; 85025; 85610; 85730; 86301; 86304; 86334; 86803; 87340; 93005; 93306; 96365; 97163; 99291; G0378; J2003; J2250; J2704; J3480; J3490